=== PATIENT | male | born 1985 | race Two or more races ===

== ENCOUNTER 2019-11-20 23:34 | Inpatient (IN) | payer MEDICAID ==
[~2019-11-20] VITALS: Ht 185.4 cm; Wt 89.0 kg
[2019-11-20 23:39] VITALS: BP 156/100
[2019-11-21] VITALS (7 sets, daily range): BP systolic 128–149; BP diastolic 78–102
[2019-11-21] MEDS ORDERED: Acetaminophen 500mg (ES) tab ORAL ONE
[2019-11-21] MEDS ORDERED: Albuterol ud Inhalation HHN ONE
--- NOTE | 2019-11-21 00:01 | Emergency Room Report ---
History of Present Illness General Chief Complaint: Upper Respiratory Illness Source: Patient Present Illness HPI This is a 34-year-old male with a recent complicated medical history. He was admitted to [facility] for 3 weeks secondary to E. coli septicemia and renal failure. He said he had bloody diarrhea and was told that he was positive for E. coli. He went into renal failure and fluid overloaded. He had to had hemodialysis and also blood transfusion. He was just discharged about a week ago. He presented today with fever and shortness of breath. He said he was tested for COVID on the last admission it was negative. Fever started yesterday. He said he very short of breath starting tonight. His father called 911. Patient said his symptoms worse with exertion. Better with rest. He still has edema to lower extremity but has not gotten worse. No nausea no vomiting. He does have a nonproductive cough. Allergies: Coded Allergies: No Known Allergies (Unverified , 11/20/19) COVID-19 Screening Contact w/high risk pt: No Recent Travel to affected area: No Experienced COVID-19 symptoms?: Yes COVID-19 symptoms experienced: Fever (T>100.4F or >38C) COVID-19 Testing performed MANAGER ZONE: No Patient History Past Medical History: see triage record, old chart reviewed Past Surgical History: other Pertinent Family History: none Social History: Denies: smoking Immunizations: other Reviewed Nursing Documentation: PMH: Agreed; PSxH: Agreed Nursing Documentation-PMH Past Medical History: No History, Except For Hx Cardiac Problems: No - HGB Review of Systems Constitutional: Reports: fever Eye: Denies: eye pain, blurred vision ENT: Denies: ear pain, nose congestion, throat swelling Respiratory: Reports: cough, shortness of breath, PULIDO Cardiovascular: Denies: chest pain, palpitations Gastrointestinal: Denies: abdominal pain, diarrhea, nausea, vomiting Musculoskeletal: Denies: back pain, joint pain Skin: Denies: rash Neurological: Denies: headache, numbness Endocrine: Denies: increased thirst, increased urine Hematologic/Lymphatic: Denies: easy bruising All Other Systems: negative except mentioned in HPI Physical Exam Vital Signs Date Time Temp Pulse Resp B/P (MAP) Pulse Ox O2 Delivery O2 Flow Rate FiO2 11/20/19 23:29 99.7 108 22 156/100 (118) 92 Room Air Vitals with fever and hypoxia Sp02 EP Interpretation: reviewed, abnormal General Appearance: alert, moderate distress, Chronically Ill Head: normocephalic, atraumatic Eyes: bilateral eye PERRL, bilateral eye EOMI ENT: hearing grossly normal, normal pharynx Neck: full range of motion, supple, no meningismus Respiratory: chest non-tender, lungs clear, normal breath sounds Cardiovascular #1: regular rate, rhythm, no murmur Gastrointestinal: normal bowel sounds, non tender, no mass, no organomegaly, no bruit, non-distended Musculoskeletal: back normal, normal range of motion, gait/station normal, swelling - 2+ edema Psychiatric: mood/affect normal Medical Decision Making Diagnostic Impression: Primary Impression: Suspected 2019 novel coronavirus infection Additional Impressions: HCAP (healthcare-associated pneumonia) Anemia Qualified Codes: D64.9 - Anemia, unspecified CHF exacerbation Qualified Codes: I50.9 - Heart failure, unspecified ER Course Patient presents with respiratory distress probably secondary to cold with pneumonia. He does have a risk factor because he has been hospitalized for the last 3 weeks. Antibiotic started to cover for healthcare pneumonia. COVID swab sent. I also gave him Lovenox also. Blood transfusion ordered. Patient will be admitted for further work-up. I discussed the case with Dr. Dominguez for admission. This patient was evaluated in the context of the global COVID-19 pandemic, which necessitated consideration that the patient might be at risk for infection with the [id number] virus that causes COVID-19. Institutional protocols and algorithms that pertain to the evaluation of patients at risk for COVID-19 and the state of rapid change based on information released by multiple regulatory bodies including the CDC and federal and state organizations. These policies and algorithms were followed during the patient' s care in the ED. EKG Diagnostic Results Rate: normal Rhythm: NSR ST Segments: no acute changes Rhythm Strip Diag. Results EP Interpretation: yes Rate: 100 Rhythm: NSR, no PVC's, no ectopy Chest X-Ray Diagnostic Results Chest X-Ray Diagnostic Results : Chest X-Ray Ordered: Yes # of Views/Limited/Complete: 1 View Indication: Shortness of Breath EP Interpretation: Yes Interpretation: no effusion, no pneumothorax, other - Multilobar infiltrates Impression: Other - Infiltrates Electronically Signed by: Reynold Pool MD Last Vital Signs Date Time Temp Pulse Resp B/P (MAP) Pulse Ox O2 Delivery O2 Flow Rate FiO2 11/20/19 23:29 99.7 108 22 156/100 (118) 92 Room Air Status: improved Disposition: ADMITTED INPATIENT Condition: Serious Referrals: NOT CHOSEN IPA/,REFERRING (PCP) Reynold Pool MD Nov 21, 2019 00:01
[2019-11-21 00:08] LABS: HEMATOCRIT 18.5 % (42.0-52.0); MEAN CORPUSCULAR VOLUME 85 FL (80-99); PLATELET COUNT 222 K/UL (150-450); RED BLOOD COUNT 2.19 M/UL (4.70-6.10); RED CELL DISTRIBUTION WIDTH 16.8 % (11.6-14.8); WHITE BLOOD COUNT 8.2 K/UL (4.8-10.8)
[2019-11-21 00:11] LABS: HEMOGLOBIN 6.6 G/DL (14.2-18.0)
[2019-11-21] MEDS ORDERED: Enoxaparin 100mg Inj SUBQ ONE (00:15)
[2019-11-21] MEDS ORDERED: Cefepime HCl 1 GM in D5W 55 ML IVPB ONE (00:15)
[2019-11-21 00:25] LABS: ANION GAP 12 mmol/L (5-15); BLOOD UREA NITROGEN 20 mg/dL (7-18); CALCIUM 6.7 MG/DL (8.5-10.1); CARBON DIOXIDE 21 MMOL/L (21-32); CHLORIDE 108 MMOL/L (98-107); CREATININE 1.4 MG/DL (0.55-1.30); POTASSIUM 3.6 MMOL/L (3.5-5.1); SODIUM 141 MMOL/L (136-145)
[2019-11-21 00:36] LABS: ALANINE AMINOTRANSFERASE 17 U/L (12-78); ALBUMIN 2.2 G/DL (3.4-5.0); ALBUMIN/GLOBULIN RATIO 0.3 (1.0-2.7); ALKALINE PHOSPHATASE 84 U/L (46-116); ASPARTATE AMINO TRANSFERASE 34 U/L (15-37); BILIRUBIN,TOTAL 1.2 MG/DL (0.2-1.0); CREATINE KINASE 43 U/L (26-308)
[2019-11-21 01:06] LABS: BILIRUBIN,DIRECT 0.4 MG/DL (0.0-0.3); CKMB 0.7 NG/ML (0.0-3.6); FERRITIN 1001 NG/ML (8-388)
[2019-11-21 01:37] LABS: APPEARANCE,URINE CLEAR; BILIRUBIN, URINE NEGATIVE (NEGATIVE); COLOR,URINE PALE YELLOW; GLUCOSE, URINE (UA) NEGATIVE (NEGATIVE); KETONES,URINE NEGATIVE (NEGATIVE); LEUKOCYTE ESTERASE ,URINE NEGATIVE (NEGATIVE); NITRITE,URINE NEGATIVE (NEGATIVE); PH,URINE 6 (4.5-8.0); PROTEIN,URINE 4+ (NEGATIVE); UROBILINOGEN,URINE NORMAL MG/DL (0.0-1.0)
[2019-11-21] MEDS ORDERED: Ketorolac 30mg Inj ONE (06:58)
[2019-11-21] MEDS ORDERED: Morphine Sulfate 4mg/ml Inj (IV USE ONLY) IVP ONE (07:00)
--- NOTE | 2019-11-21 08:15 | Diagnostic Imaging Report ---
Indication: Shortness of breath Technique: One view of the chest Comparison: none Findings: The heart is borderline enlarged. Bilateral diffuse and extensive infiltrates versus edema are seen throughout both lungs. Small bilateral pleural effusions are present. Impression: Bilateral parenchymal infiltrates, suspect pneumonia, pulmonary edema also possible Small bilateral pleural effusions Borderline cardiomegaly
[2019-11-21 11:28] LABS: HEMATOCRIT 22.3 % (42.0-52.0); HEMOGLOBIN 7.6 G/DL (14.2-18.0); MEAN CORPUSCULAR VOLUME 86 FL (80-99); PLATELET COUNT 213 K/UL (150-450); RED BLOOD COUNT 2.61 M/UL (4.70-6.10); RED CELL DISTRIBUTION WIDTH 16.2 % (11.6-14.8); WHITE BLOOD COUNT 7.2 K/UL (4.8-10.8)
[2019-11-21 11:32] LABS: ANION GAP 9 mmol/L (5-15); BLOOD UREA NITROGEN 18 mg/dL (7-18); CARBON DIOXIDE 23 MMOL/L (21-32); CHLORIDE 109 MMOL/L (98-107); CREATININE 1.4 MG/DL (0.55-1.30); POTASSIUM 3.6 MMOL/L (3.5-5.1); SODIUM 141 MMOL/L (136-145)
[2019-11-21] MEDS ORDERED: HYDROcodone/Acetamin 5/325 tab ORAL PRN (12:00)
[2019-11-21] MEDS ORDERED: BIKTARVY 50-201 EACH PO (13:12)
--- NOTE | 2019-11-21 13:34 | Consultation ---
History of Present Illness General Chief Complaint: Upper Respiratory Illness Reason for Consultation: VERNA - recent ATN Present Illness HPI This is 34 year old male with hx of HIV (latest CD4 unknown but RNA undetectable per pt), and recent prolonged hospitalization at [facility] with E. coli enteritis, presenting with ~2 days of fever, SOB. During prior hospital stay, he lost a lot of blood and was discharged after ~3 weeks, on iron , with latest Hgb at 7 range. Denies any more bleeding since then. He was on temporary HD for 6-7 sessions at the time, but got better in the end. In terms of any COVID exposure, he was at [facility] a few days ago, but has been otherwise staying home. Due to SOB, cough, fever, his parents called 911 and he was taken here. Currently, his symptoms are much improved after some lasix and 2 units of blood. Allergies: Coded Allergies: No Known Allergies (Unverified , 11/20/19) Medication History Scheduled Bictegrav/Emtricit/Tenofov Ala (Biktarvy 50-200-25 mg Tablet), 1 EACH PO DAILY, (Reported) Patient History Healthcare decision maker Resuscitation status Advanced Directive on File Review of Systems All Other Systems: negative except mentioned in HPI Physical Exam General Appearance: WD/WN, no apparent distress Lines, tubes and drains: peripheral HEENT: normocephalic, atraumatic Neck: non-tender, normal alignment Respiratory/Chest: chest wall non-tender, rhonchi - bilaterally Cardiovascular/Chest: normal peripheral pulses, normal rate, regular rhythm Abdomen: normal bowel sounds, non tender, soft Extremities: normal range of motion, non-tender, normal inspection, no calf tenderness Neurologic: alert, oriented x 3, responsive Last 24 Hour Vital Signs Date Time Temp Pulse Resp B/P (MAP) Pulse Ox O2 Delivery O2 Flow Rate FiO2 11/21/19 11:43 Nasal Cannula 2.0 11/21/19 11:00 98.2 76 15 138/87 99 Room Air 2.0 11/21/19 09:30 97.5 73 19 145/91 98 Room Air 11/21/19 08:00 98.5 75 20 11/21/19 07:31 97.5 11/21/19 06:35 98.8 86 19 11/21/19 06:30 98.3 83 19 11/21/19 06:25 98.8 84 22 11/21/19 06:20 98.2 84 27 11/21/19 05:19 98.8 85 26 136/86 98 Nasal Cannula 2.0 32 11/21/19 03:55 98.7 89 24 11/21/19 03:50 98.7 96 26 11/21/19 03:45 98.8 95 24 11/21/19 03:40 98.8 98 22 128/82 98 Nasal Cannula 2.0 32 11/21/19 03:40 98.8 98 22 11/21/19 01:28 99.0 111 27 129/78 97 Nasal Cannula 2.0 11/21/19 00:45 99.0 11/21/19 00:07 86 27 100 Nasal Cannula 3.0 32 81 26 100 11/20/19 23:39 99.7 108 22 156/100 95 Nasal Cannula 11/20/19 23:39 108 22 Nasal Cannula 2.0 11/20/19 23:29 99.7 108 22 156/100 (118) 92 Room Air Intake and Output 11/20/19 11/21/19 19:00 07:00 Intake Total 250 ml Output Total 1500 ml Balance -1250 ml Intake Blood Product 250 ml Output Urine Total 1500 ml # Voids 4 Laboratory Tests Test 11/20/19 23:45 11/21/19 11:10 White Blood Count 8.2 K/UL (4.8-10.8) 7.2 K/UL (4.8-10.8) Red Blood Count 2.19 M/UL (4.70-6.10) L 2.61 M/UL (4.70-6.10) L Hemoglobin 6.6 G/DL (14.2-18.0) *L 7.6 G/DL (14.2-18.0) L Hematocrit 18.5 % (42.0-52.0) L 22.3 % (42.0-52.0) L Mean Corpuscular Volume 85 FL (80-99) 86 FL (80-99) Mean Corpuscular Hemoglobin 30.4 PG (27.0-31.0) 29.2 PG (27.0-31.0) Mean Corpuscular Hemoglobin Concent 35.8 G/DL (32.0-36.0) 34.1 G/DL (32.0-36.0) Red Cell Distribution Width 16.8 % (11.6-14.8) H 16.2 % (11.6-14.8) H Platelet Count 222 K/UL (150-450) 213 K/UL (150-450) Mean Platelet Volume 4.7 FL (6.5-10.1) L 5.2 FL (6.5-10.1) L Neutrophils (%) (Auto) % (45.0-75.0) % (45.0-75.0) Lymphocytes (%) (Auto) % (20.0-45.0) % (20.0-45.0) Monocytes (%) (Auto) % (1.0-10.0) % (1.0-10.0) Eosinophils (%) (Auto) % (0.0-3.0) % (0.0-3.0) Basophils (%) (Auto) % (0.0-2.0) % (0.0-2.0) D-Dimer 4.26 mg/L FEU (0.00-0.49) H Urine Color Pale yellow Urine Appearance Clear Urine pH 6 (4.5-8.0) Urine Specific [place] 1.010 (1.005-1.035) Urine Protein 4+ (NEGATIVE) H Urine Glucose (UA) Negative (NEGATIVE) Urine Ketones Negative (NEGATIVE) Urine Blood 4+ (NEGATIVE) H Urine Nitrite Negative (NEGATIVE) Urine Bilirubin Negative (NEGATIVE) Urine Urobilinogen Normal MG/DL (0.0-1.0) Urine Leukocyte Esterase Negative (NEGATIVE) Urine RBC Tntc /HPF (0 - 0) H Urine WBC 0-2 /HPF (0 - 0) Urine Squamous Epithelial Cells Few /LPF (NONE/OCC) Urine Bacteria Few /HPF (NONE) Sodium Level 141 MMOL/L (136-145) 141 MMOL/L (136-145) Potassium Level 3.6 MMOL/L (3.5-5.1) 3.6 MMOL/L (3.5-5.1) Chloride Level 108 MMOL/L (98-107) H 109 MMOL/L (98-107) H Carbon Dioxide Level 21 MMOL/L (21-32) 23 MMOL/L (21-32) Anion Gap 12 mmol/L (5-15) 9 mmol/L (5-15) Blood Urea Nitrogen 20 mg/dL (7-18) H 18 mg/dL (7-18) Creatinine 1.4 MG/DL (0.55-1.30) H 1.4 MG/DL (0.55-1.30) H Estimat Glomerular Filtration Rate 57.3 mL/min (>60) 57.3 mL/min (>60) Glucose Level 99 MG/DL (74-106) 84 MG/DL (74-106) Lactic Acid Level 1.10 mmol/L (0.4-2.0) Calcium Level 6.7 MG/DL (8.5-10.1) L 7.0 MG/DL (8.5-10.1) L Ferritin 1001 NG/ML (8-388) H Total Bilirubin 1.2 MG/DL (0.2-1.0) H Direct Bilirubin 0.4 MG/DL (0.0-0.3) H Aspartate Amino Transf (AST/SGOT) 34 U/L (15-37) Alanine Aminotransferase (ALT/SGPT) 17 U/L (12-78) Alkaline Phosphatase 84 U/L (46-116) Total Creatine Kinase 43 U/L (26-308) Creatine Kinase MB 0.7 NG/ML (0.0-3.6) Creatine Kinase MB Relative Index 1.6 Troponin I 0.011 ng/mL (0.000-0.056) C-Reactive Protein, Quantitative 4.3 mg/dL (0.00-0.90) H Pro-B-Type Natriuretic Peptide 6839 pg/mL (0-125) H Total Protein 9.0 G/DL (6.4-8.2) H Albumin 2.2 G/DL (3.4-5.0) L Globulin 6.8 g/dL Albumin/Globulin Ratio 0.3 (1.0-2.7) L Differential Total Cells Counted 100 Neutrophils % (Manual) 49 % (45-75) Lymphocytes % (Manual) 44 % (20-45) Monocytes % (Manual) 7 % (1-10) Eosinophils % (Manual) 0 % (0-3) Basophils % (Manual) 0 % (0-2) Band Neutrophils 0 % (0-8) Platelet Estimate Adequate Platelet Morphology Normal Anisocytosis 1+ Microbiology Date/Time Source Procedure Growth Status 11/20/19 23:45 Nasal Nares - Final Complete 11/20/19 23:45 Nasal Nares - Final Complete Height (Feet): 6 Height (Inches): 1.00 Weight (Pounds): 189 Medications Current Medications Medications (Trade) Dose Ordered Sig/Tiara Route PRN Reason Start Time Stop Time Status Last Admin Dose Admin Acetaminophen (Tylenol) 650 mg Q4H PRN ORAL Temp >100.5 11/21/19 12:00 12/21/19 11:59 Acetaminophen/ Hydrocodone Bitart ([place] 5/325) 1 tab Q4H PRN ORAL Severe Pain (Pain Scale 7-10) 11/21/19 12:00 11/28/19 11:59 Ferrous Sulfate (Feosol) 325 mg THREE TIMES A DAY ORAL 11/21/19 13:00 02/19/20 12:59 11/21/19 13:16 Assessment/Plan Diagnosis [place] I: #recent ATN due to HUs? HD depenedent resolved - cr stablized #SOB r/o covid #recent ecoli enteritis #HIV #anemia - diuretics prn to maintain net neg volume balance - r/o covid - monitor bmp, mag and phos - avoid nephrotoxins - pulm eval - ID eval - on cefepime and levaqui - 2d echo - transfuse prbc - monitor hemoglobin Impression: Bilateral parenchymal infiltrates, suspect pneumonia, pulmonary edema also possible Small bilateral pleural effusions Borderline cardiomegaly -chest xray: Sandy Dominguez M.D. Nov 21, 2019 13:34
--- NOTE | 2019-11-21 15:00 | History and Physical ---
History of Present Illness General Date patient seen: Nov 21, 2019 Reason for Hospitalization: Upper Respiratory Illness Present Illness HPI 34 year old male with hx of HIV (latest CD4 unknown but RNA undetectable per pt) , and recent prolonged hospitalization at [facility] with E. coli enteritis , presenting with ~2 days of fever, SOB. During prior hospital stay, he lost a lot of blood and was discharged after ~3 weeks, on iron, with latest Hgb at 7 range. Denies any more bleeding since then. He was on temporary HD for 6-7 sessions at the time, but got better in the end. In terms of any COVID exposure , he was at [employer] a few days ago, but has been otherwise staying home. Due to SOB, cough, fever, his parents called 911 and he was taken here. Currently, his symptoms are much improved after some lasix and 2 units of blood. Allergies: Coded Allergies: No Known Allergies (Unverified , 11/20/19) COVID-19 Screening Contact w/high risk pt: No Recent Travel to affected area: No Experienced COVID-19 symptoms?: No COVID-19 symptoms experienced: Shortness of Breath Medication History Scheduled Bictegrav/Emtricit/Tenofov Ala (Biktarvy 50-200-25 mg Tablet), 1 EACH PO DAILY, (Reported) Patient History Healthcare decision maker Resuscitation status Advanced Directive on File Review of Systems Constitutional: Reports: fever; Denies: no symptoms, see HPI, chills, sweats, malaise, weakness, other Eye: Denies: no symptoms, see HPI, eye pain, blurred vision, tearing, double vision, nose pain, nose congestion, acuity changes, discharge, other ENT: Denies: no symptoms, see HPI, ear pain, ear discharge, nose pain, nose congestion, throat pain, throat swelling, mouth pain, hearing loss, nasal discharge, other Respiratory: Reports: cough, shortness of breath Cardiovascular: Denies: no symptoms, see HPI, chest pain, edema, palpitations, syncope, PND, other Gastrointestinal: Denies: no symptoms, see HPI, abdominal pain, constipation, diarrhea, nausea, vomiting, melena, hematemesis, other Genitourinary: Denies: no symptoms, see HPI, discharge, dysuria, frequency, hematuria, pain, retention, incontinence, urgency, vag bleed/dc, other Musculoskeletal: Denies: no symptoms, see HPI, back pain, gout, joint pain, joint swelling, muscle pain, muscle stiffness, other Skin: Denies: no symptoms, see HPI, rash, change in color, change in hair/nails , dryness, lesions, other Psychiatric: Denies: no symptoms, see HPI, prior hx, anxiety, depressed feelings, emotional problems, SI, HI, hallucinations, other Neurological: Denies: no symptoms, see HPI, headache, numbness, paresthesia, seizure, tingling, tremors, focal weakness, syncope, dizziness, other Endocrine: Denies: no symptoms, see HPI, excessive sweating, flushing, intolerance to temperature, increased thirst, increased urine, unexplained weight loss, other Hematologic/Lymphatic: Denies: no symptoms, see HPI, anemia, blood clots, easy bleeding, easy bruising, swollen glands, diathesis, other Physical Exam General Appearance: no apparent distress, alert HEENT: normocephalic, atraumatic, PERRL Neck: non-tender, supple Respiratory/Chest: lungs clear, normal breath sounds, no respiratory distress Cardiovascular/Chest: normal rate, regular rhythm Abdomen: non tender, soft Neurologic: alert, oriented x 3 Last 24 Hour Vital Signs Date Time Temp Pulse Resp B/P (MAP) Pulse Ox O2 Delivery O2 Flow Rate FiO2 11/21/19 12:06 88 11/21/19 12:00 100.0 87 20 149/100 (116) 99 11/21/19 11:43 Nasal Cannula 2.0 11/21/19 11:00 98.2 76 15 138/87 99 Room Air 2.0 11/21/19 09:30 97.5 73 19 145/91 98 Room Air 11/21/19 08:00 98.5 75 20 11/21/19 07:31 97.5 11/21/19 06:35 98.8 86 19 11/21/19 06:30 98.3 83 19 11/21/19 06:25 98.8 84 22 11/21/19 06:20 98.2 84 27 11/21/19 05:19 98.8 85 26 136/86 98 Nasal Cannula 2.0 32 11/21/19 03:55 98.7 89 24 11/21/19 03:50 98.7 96 26 11/21/19 03:45 98.8 95 24 11/21/19 03:40 98.8 98 22 128/82 98 Nasal Cannula 2.0 32 11/21/19 03:40 98.8 98 22 11/21/19 01:28 99.0 111 27 129/78 97 Nasal Cannula 2.0 11/21/19 00:45 99.0 11/21/19 00:07 86 27 100 Nasal Cannula 3.0 32 81 26 100 11/20/19 23:39 99.7 108 22 156/100 95 Nasal Cannula 11/20/19 23:39 108 22 Nasal Cannula 2.0 11/20/19 23:29 99.7 108 22 156/100 (118) 92 Room Air Intake and Output 11/20/19 11/21/19 19:00 07:00 Intake Total 250 ml Output Total 1500 ml Balance -1250 ml Intake Blood Product 250 ml Output Urine Total 1500 ml # Voids 4 Laboratory Tests Test 11/20/19 23:45 11/21/19 11:10 White Blood Count 8.2 K/UL (4.8-10.8) 7.2 K/UL (4.8-10.8) Red Blood Count 2.19 M/UL (4.70-6.10) L 2.61 M/UL (4.70-6.10) L Hemoglobin 6.6 G/DL (14.2-18.0) *L 7.6 G/DL (14.2-18.0) L Hematocrit 18.5 % (42.0-52.0) L 22.3 % (42.0-52.0) L Mean Corpuscular Volume 85 FL (80-99) 86 FL (80-99) Mean Corpuscular Hemoglobin 30.4 PG (27.0-31.0) 29.2 PG (27.0-31.0) Mean Corpuscular Hemoglobin Concent 35.8 G/DL (32.0-36.0) 34.1 G/DL (32.0-36.0) Red Cell Distribution Width 16.8 % (11.6-14.8) H 16.2 % (11.6-14.8) H Platelet Count 222 K/UL (150-450) 213 K/UL (150-450) Mean Platelet Volume 4.7 FL (6.5-10.1) L 5.2 FL (6.5-10.1) L Neutrophils (%) (Auto) % (45.0-75.0) % (45.0-75.0) Lymphocytes (%) (Auto) % (20.0-45.0) % (20.0-45.0) Monocytes (%) (Auto) % (1.0-10.0) % (1.0-10.0) Eosinophils (%) (Auto) % (0.0-3.0) % (0.0-3.0) Basophils (%) (Auto) % (0.0-2.0) % (0.0-2.0) D-Dimer 4.26 mg/L FEU (0.00-0.49) H Urine Color Pale yellow Urine Appearance Clear Urine pH 6 (4.5-8.0) Urine Specific [place] 1.010 (1.005-1.035) Urine Protein 4+ (NEGATIVE) H Urine Glucose (UA) Negative (NEGATIVE) Urine Ketones Negative (NEGATIVE) Urine Blood 4+ (NEGATIVE) H Urine Nitrite Negative (NEGATIVE) Urine Bilirubin Negative (NEGATIVE) Urine Urobilinogen Normal MG/DL (0.0-1.0) Urine Leukocyte Esterase Negative (NEGATIVE) Urine RBC Tntc /HPF (0 - 0) H Urine WBC 0-2 /HPF (0 - 0) Urine Squamous Epithelial Cells Few /LPF (NONE/OCC) Urine Bacteria Few /HPF (NONE) Sodium Level 141 MMOL/L (136-145) 141 MMOL/L (136-145) Potassium Level 3.6 MMOL/L (3.5-5.1) 3.6 MMOL/L (3.5-5.1) Chloride Level 108 MMOL/L (98-107) H 109 MMOL/L (98-107) H Carbon Dioxide Level 21 MMOL/L (21-32) 23 MMOL/L (21-32) Anion Gap 12 mmol/L (5-15) 9 mmol/L (5-15) Blood Urea Nitrogen 20 mg/dL (7-18) H 18 mg/dL (7-18) Creatinine 1.4 MG/DL (0.55-1.30) H 1.4 MG/DL (0.55-1.30) H Estimat Glomerular Filtration Rate 57.3 mL/min (>60) 57.3 mL/min (>60) Glucose Level 99 MG/DL (74-106) 84 MG/DL (74-106) Lactic Acid Level 1.10 mmol/L (0.4-2.0) Calcium Level 6.7 MG/DL (8.5-10.1) L 7.0 MG/DL (8.5-10.1) L Ferritin 1001 NG/ML (8-388) H Total Bilirubin 1.2 MG/DL (0.2-1.0) H Direct Bilirubin 0.4 MG/DL (0.0-0.3) H Aspartate Amino Transf (AST/SGOT) 34 U/L (15-37) Alanine Aminotransferase (ALT/SGPT) 17 U/L (12-78) Alkaline Phosphatase 84 U/L (46-116) Total Creatine Kinase 43 U/L (26-308) Creatine Kinase MB 0.7 NG/ML (0.0-3.6) Creatine Kinase MB Relative Index 1.6 Troponin I 0.011 ng/mL (0.000-0.056) C-Reactive Protein, Quantitative 4.3 mg/dL (0.00-0.90) H Pro-B-Type Natriuretic Peptide 6839 pg/mL (0-125) H Total Protein 9.0 G/DL (6.4-8.2) H Albumin 2.2 G/DL (3.4-5.0) L Globulin 6.8 g/dL Albumin/Globulin Ratio 0.3 (1.0-2.7) L Differential Total Cells Counted 100 Neutrophils % (Manual) 49 % (45-75) Lymphocytes % (Manual) 44 % (20-45) Monocytes % (Manual) 7 % (1-10) Eosinophils % (Manual) 0 % (0-3) Basophils % (Manual) 0 % (0-2) Band Neutrophils 0 % (0-8) Platelet Estimate Adequate Platelet Morphology Normal Anisocytosis 1+ Microbiology Date/Time Source Procedure Growth Status 11/21/19 12:15 Nasopharynx SARS-CoV-2 RdRp Gene Assay - Final Complete 11/20/19 23:45 Nasal Nares - Final Complete 11/20/19 23:45 Nasal Nares - Final Complete Height (Feet): 6 Height (Inches): 1.00 Weight (Pounds): 189 Medications Current Medications Medications (Trade) Dose Ordered Sig/Tiara Route PRN Reason Start Time Stop Time Status Last Admin Dose Admin Acetaminophen (Tylenol) 650 mg Q4H PRN ORAL Temp >100.5 11/21/19 12:00 12/21/19 11:59 Acetaminophen/ Hydrocodone Bitart ([place] 5/325) 1 tab Q4H PRN ORAL Severe Pain (Pain Scale 7-10) 11/21/19 12:00 11/28/19 11:59 Ferrous Sulfate (Feosol) 325 mg THREE TIMES A DAY ORAL 11/21/19 13:00 02/19/20 12:59 11/21/19 13:16 Furosemide (Lasix) 40 mg EVERY 12 HOURS IV 11/21/19 21:00 12/21/19 20:59 Assessment/Plan Problem List: (1) Anemia ICD Codes: D64.9 - Anemia, unspecified SNOMED: 126410239, [id number] Qualifiers: Qualified Codes: D64.9 - Anemia, unspecified (2) CHF exacerbation ICD Codes: I50.9 - Heart failure, unspecified SNOMED: 665393067, [id number] Qualifiers: Qualified Codes: I50.9 - Heart failure, unspecified Status: stable Assessment/Plan: Mr. Rollins is a 34 yo male with HIV, here with 2 days of cough, SOB, fever, and anemia. #Acute on chronic anemia -Has lost a lot of blood from recent E. coli enteritis. no more bleeding since. -s/p 2 u pRBC in the ED with good response. -check CBC daily. first one tmrw. -continue iron #SOB #Cough -check COVID -s/p abx in the ED. Does not appear to have PNA, will not continue abx. -s/p lasix in the ED. will not continue, since transfusions done and no hx of CHF. #HIV -continue home HIV med (Biktarvy) -f/u outpatient. Time spent on encounter: 76 mins, 37 mins spent on counseling and coordination of care, d/w RN, consultants. Extra 37 mins spent on reviewing EMR records, including physician documentation , labs, imaging, medications. Time of note doesn't reflect time of encounter. Kristopher Orta MD Nov 21, 2019 15:00
--- NOTE | 2019-11-21 19:45 | Consultation ---
DATE OF CONSULTATION: 11/21/2019 PULMONARY CONSULTATION CONSULTING PHYSICIAN: Lorenzo Zavala MD. HISTORY OF PRESENT ILLNESS: This is a 34-year-old male with history of recent admission to outside hospital with sepsis and acute renal failure. He was started on hemodialysis and also received transfusion. He was discharged recently. He now re-presents at this time to our hospital with complaints of shortness of breath. He also reports fever. His COVID-19 test was negative as an outpatient per his report. The patient reports fever and shortness of breath. PAST MEDICAL HISTORY: Discussed above. Notable for recent admission to [facility] with E. coli sepsis and renal failure. REVIEW OF SYSTEMS: Denies any headaches, hematemesis, melena, hematochezia, night sweats, or weight loss. PHYSICAL EXAMINATION: GENERAL: Reveals a 34-year-old male. VITAL SIGNS: Blood pressure 140/90, heart rate 74, he is afebrile, O2 saturation 98% on room air. HEENT: Unremarkable. CHEST: Decreased breath sounds bilaterally with normal heart sounds. ABDOMEN: Soft. EXTREMITIES: There is no edema. LABORATORY DATA: Lab testing shows hemoglobin 6.6, otherwise normal CBC. Creatinine 1.4. Troponin 0.1. C-reactive protein 4.3. Total bilirubin 1.2. Coags normal except for D-dimer of 4.26. Urinalysis shows few wbc. Microbiology pending. IMAGING STUDIES: The patient underwent chest x-ray, which has shown bilateral pulmonary infiltrates suspicious for pulmonary edema. Cannot exclude COVID-19. IMPRESSION: 1. Bilateral infiltrates, suspect pulmonary edema. 2. Rule out COVID-19. 3. Significant anemia. 4. Renal dysfunction. DISCUSSION: The patient needs diuresis. He needs an echo. Need to exclude COVID-19. His x-ray is very peculiar with sparing of the apices, otherwise almost like a batwing appearance to the fluffy interstitial infiltrates. We will follow carefully. Discussed with Cardiology and Nephrology. Lorenzo Zavala M.D. DR: SEAN JOB#: [id number] CC:
--- NOTE | 2019-11-21 20:02 | Infectious Diseases Prog Note ---
Assessment/Plan Assessment/Plan Full consult dictated: A) 1) ? pna, fevers, chf/edema, ? covid-19 virus infection, ? CAP, ? other viral pna - rapid PAUL test negative, PCR pending 2) recent hospitalization for e.coli enteritis 3) hiv - viral load - ND, ? cd4-count 4) hx ARF and HD P) 1) treat for CAP - ceftriaxone and doxycycline (arrhythmia risk with cardiomegaly and chf and avoid azithromycin) 2) f/u on covid pcr 3) f/u on chest x-ray, labs and cultures 4) thank you Subjective Allergies: Coded Allergies: No Known Allergies (Unverified , 11/20/19) Objective Vital Signs Last 24 Hour Vital Signs Date Time Temp Pulse Resp B/P (MAP) Pulse Ox O2 Delivery O2 Flow Rate FiO2 11/21/19 19:19 101.8 11/21/19 16:00 101.5 102 22 148/102 (117) 97 11/21/19 15:57 107 11/21/19 12:06 88 11/21/19 12:00 100.0 87 20 149/100 (116) 99 11/21/19 11:43 Nasal Cannula 2.0 11/21/19 11:00 98.2 76 15 138/87 99 Room Air 2.0 11/21/19 09:30 97.5 73 19 145/91 98 Room Air 11/21/19 08:00 98.5 75 20 11/21/19 07:31 97.5 11/21/19 06:35 98.8 86 19 11/21/19 06:30 98.3 83 19 11/21/19 06:25 98.8 84 22 11/21/19 06:20 98.2 84 27 11/21/19 05:19 98.8 85 26 136/86 98 Nasal Cannula 2.0 32 11/21/19 03:55 98.7 89 24 11/21/19 03:50 98.7 96 26 11/21/19 03:45 98.8 95 24 11/21/19 03:40 98.8 98 22 128/82 98 Nasal Cannula 2.0 32 11/21/19 03:40 98.8 98 22 11/21/19 01:28 99.0 111 27 129/78 97 Nasal Cannula 2.0 6/9/20 00:45 99.0 11/21/19 00:07 86 27 100 Nasal Cannula 3.0 32 81 26 100 11/20/19 23:39 99.7 108 22 156/100 95 Nasal Cannula 11/20/19 23:39 108 22 Nasal Cannula 2.0 11/20/19 23:29 99.7 108 22 156/100 (118) 92 Room Air Height (Feet): 6 Height (Inches): 1.00 Weight (Pounds): 189 Microbiology Date/Time Source Procedure Growth Status 11/21/19 12:15 Nasopharynx SARS-CoV-2 RdRp Gene Assay - Final Complete 11/20/19 23:45 Nasal Nares - Final Complete 11/20/19 23:45 Nasal Nares - Final Complete Laboratory Tests Test 11/20/19 23:45 11/21/19 11:10 White Blood Count 8.2 K/UL (4.8-10.8) 7.2 K/UL (4.8-10.8) Red Blood Count 2.19 M/UL (4.70-6.10) L 2.61 M/UL (4.70-6.10) L Hemoglobin 6.6 G/DL (14.2-18.0) *L 7.6 G/DL (14.2-18.0) L Hematocrit 18.5 % (42.0-52.0) L 22.3 % (42.0-52.0) L Mean Corpuscular Volume 85 FL (80-99) 86 FL (80-99) Mean Corpuscular Hemoglobin 30.4 PG (27.0-31.0) 29.2 PG (27.0-31.0) Mean Corpuscular Hemoglobin Concent 35.8 G/DL (32.0-36.0) 34.1 G/DL (32.0-36.0) Red Cell Distribution Width 16.8 % (11.6-14.8) H 16.2 % (11.6-14.8) H Platelet Count 222 K/UL (150-450) 213 K/UL (150-450) Mean Platelet Volume 4.7 FL (6.5-10.1) L 5.2 FL (6.5-10.1) L Neutrophils (%) (Auto) % (45.0-75.0) % (45.0-75.0) Lymphocytes (%) (Auto) % (20.0-45.0) % (20.0-45.0) Monocytes (%) (Auto) % (1.0-10.0) % (1.0-10.0) Eosinophils (%) (Auto) % (0.0-3.0) % (0.0-3.0) Basophils (%) (Auto) % (0.0-2.0) % (0.0-2.0) D-Dimer 4.26 mg/L FEU (0.00-0.49) H Urine Color Pale yellow Urine Appearance Clear Urine pH 6 (4.5-8.0) Urine Specific Call 1.010 (1.005-1.035) Urine Protein 4+ (NEGATIVE) H Urine Glucose (UA) Negative (NEGATIVE) Urine Ketones Negative (NEGATIVE) Urine Blood 4+ (NEGATIVE) H Urine Nitrite Negative (NEGATIVE) Urine Bilirubin Negative (NEGATIVE) Urine Urobilinogen Normal MG/DL (0.0-1.0) Urine Leukocyte Esterase Negative (NEGATIVE) Urine RBC Tntc /HPF (0 - 0) H Urine WBC 0-2 /HPF (0 - 0) Urine Squamous Epithelial Cells Few /LPF (NONE/OCC) Urine Bacteria Few /HPF (NONE) Sodium Level 141 MMOL/L (136-145) 141 MMOL/L (136-145) Potassium Level 3.6 MMOL/L (3.5-5.1) 3.6 MMOL/L (3.5-5.1) Chloride Level 108 MMOL/L (98-107) H 109 MMOL/L (98-107) H Carbon Dioxide Level 21 MMOL/L (21-32) 23 MMOL/L (21-32) Anion Gap 12 mmol/L (5-15) 9 mmol/L (5-15) Blood Urea Nitrogen 20 mg/dL (7-18) H 18 mg/dL (7-18) Creatinine 1.4 MG/DL (0.55-1.30) H 1.4 MG/DL (0.55-1.30) H Estimat Glomerular Filtration Rate 57.3 mL/min (>60) 57.3 mL/min (>60) Glucose Level 99 MG/DL (74-106) 84 MG/DL (74-106) Lactic Acid Level 1.10 mmol/L (0.4-2.0) Calcium Level 6.7 MG/DL (8.5-10.1) L 7.0 MG/DL (8.5-10.1) L Ferritin 1001 NG/ML (8-388) H Total Bilirubin 1.2 MG/DL (0.2-1.0) H Direct Bilirubin 0.4 MG/DL (0.0-0.3) H Aspartate Amino Transf (AST/SGOT) 34 U/L (15-37) Alanine Aminotransferase (ALT/SGPT) 17 U/L (12-78) Alkaline Phosphatase 84 U/L (46-116) Total Creatine Kinase 43 U/L (26-308) Creatine Kinase MB 0.7 NG/ML (0.0-3.6) Creatine Kinase MB Relative Index 1.6 Troponin I 0.011 ng/mL (0.000-0.056) C-Reactive Protein, Quantitative 4.3 mg/dL (0.00-0.90) H Pro-B-Type Natriuretic Peptide 6839 pg/mL (0-125) H Total Protein 9.0 G/DL (6.4-8.2) H Albumin 2.2 G/DL (3.4-5.0) L Globulin 6.8 g/dL Albumin/Globulin Ratio 0.3 (1.0-2.7) L Differential Total Cells Counted 100 Neutrophils % (Manual) 49 % (45-75) Lymphocytes % (Manual) 44 % (20-45) Monocytes % (Manual) 7 % (1-10) Eosinophils % (Manual) 0 % (0-3) Basophils % (Manual) 0 % (0-2) Band Neutrophils 0 % (0-8) Platelet Estimate Adequate Platelet Morphology Normal Anisocytosis 1+ Current Medications Medications (Trade) Dose Ordered Sig/Tiara Route PRN Reason Start Time Stop Time Status Last Admin Dose Admin Acetaminophen (Tylenol) 650 mg Q4H PRN ORAL Temp >100.5 11/21/19 12:00 12/21/19 11:59 11/21/19 18:49 Ferrous Sulfate (Feosol) 325 mg THREE TIMES A DAY ORAL 11/21/19 13:00 02/19/20 12:59 11/21/19 17:43 Morphine Sulfate (Morphine Sulfate) 2 mg Q4H PRN IVP Moderate Pain (Pain Scale 4-6) 11/21/19 19:30 11/28/19 19:29 Morphine Sulfate (Morphine Sulfate) 4 mg Q4H PRN IVP Severe Pain (Pain Scale 7-10) 11/21/19 19:30 11/28/19 19:29 Leeroy Orellana MD Nov 21, 2019 20:02
[2019-11-21] MEDS ORDERED: cefTRIAXone 1 GM in D5W 50 ML IVPB SCH (21:00)
[2019-11-21] MEDS: Doxycycline Monohydrate 100mg ORAL SCH (21:39)
--- NOTE | 2019-11-21 23:11 | Consultation ---
History of Present Illness General Date patient seen: Nov 21, 2019 Time patient seen: 23:07 Chief Complaint: Upper Respiratory Illness Reason for Consultation: VERNA - recent ATN Present Illness HPI 34 year old male with hx of HIV (latest CD4 unknown but RNA undetectable per pt) , and recent prolonged hospitalization at [facility] with E. coli enteritis , presenting with ~2 days of fever, SOB. During prior hospital stay, he lost a lot of blood and was discharged after ~3 weeks, on iron, with latest Hgb at 7 range. Denies any more bleeding since then. He was on temporary HD for 6-7 sessions at the time, but got better in the end. In terms of any COVID exposure , he was at [facility] a few days ago, but has been otherwise staying home. Due to SOB, cough, fever, his parents called 911 and he was taken here. Currently, his symptoms are much improved after some lasix and 2 units of blood. Allergies: Coded Allergies: No Known Allergies (Unverified , 11/20/19) Medication History Scheduled Bictegrav/Emtricit/Tenofov Ala (Biktarvy 50-200-25 mg Tablet), 1 EACH PO DAILY, (Reported) Patient History Healthcare decision maker Resuscitation status Advanced Directive on File Review of Systems Constitutional: Reports: no symptoms Eye: Reports: no symptoms ENT: Reports: no symptoms Respiratory: Reports: shortness of breath Cardiovascular: Reports: no symptoms Gastrointestinal: Reports: no symptoms Genitourinary: Reports: no symptoms Musculoskeletal: Reports: no symptoms Skin: Reports: no symptoms Psychiatric: Reports: no symptoms Neurological: Reports: no symptoms Endocrine: Reports: no symptoms Hematologic/Lymphatic: Reports: no symptoms Physical Exam General Appearance: no apparent distress, alert Lines, tubes and drains: peripheral HEENT: normocephalic, atraumatic Neck: non-tender, normal alignment, supple, normal inspection Respiratory/Chest: chest wall non-tender, lungs clear Cardiovascular/Chest: normal peripheral pulses, normal rate, regular rhythm Abdomen: normal bowel sounds, non tender, soft, no organomegaly, no mass Extremities: normal range of motion, non-tender, normal inspection Skin Exam: normal pigmentation, warm/dry 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, no motor/sensory deficits Last 24 Hour Vital Signs Date Time Temp Pulse Resp B/P (MAP) Pulse Ox O2 Delivery O2 Flow Rate FiO2 6/9/20 20:00 100.8 96 22 143/96 (112) 93 11/21/19 19:19 101.8 11/21/19 16:00 101.5 102 22 148/102 (117) 97 11/21/19 15:57 107 11/21/19 12:06 88 11/21/19 12:00 100.0 87 20 149/100 (116) 99 11/21/19 11:43 Nasal Cannula 2.0 11/21/19 11:00 98.2 76 15 138/87 99 Room Air 2.0 11/21/19 09:30 97.5 73 19 145/91 98 Room Air 11/21/19 08:00 98.5 75 20 11/21/19 07:31 97.5 11/21/19 06:35 98.8 86 19 11/21/19 06:30 98.3 83 19 11/21/19 06:25 98.8 84 22 11/21/19 06:20 98.2 84 27 11/21/19 05:19 98.8 85 26 136/86 98 Nasal Cannula 2.0 32 11/21/19 03:55 98.7 89 24 11/21/19 03:50 98.7 96 26 11/21/19 03:45 98.8 95 24 11/21/19 03:40 98.8 98 22 128/82 98 Nasal Cannula 2.0 32 11/21/19 03:40 98.8 98 22 11/21/19 01:28 99.0 111 27 129/78 97 Nasal Cannula 2.0 11/21/19 00:45 99.0 11/21/19 00:07 86 27 100 Nasal Cannula 3.0 32 81 26 100 11/20/19 23:39 99.7 108 22 156/100 95 Nasal Cannula 11/20/19 23:39 108 22 Nasal Cannula 2.0 11/20/19 23:29 99.7 108 22 156/100 (118) 92 Room Air Intake and Output 11/20/19 11/21/19 19:00 07:00 Intake Total 250 ml Output Total 1500 ml Balance -1250 ml Blood Product 250 ml Output Urine Total 1500 ml # Voids 4 Laboratory Tests Test 11/20/19 23:45 11/21/19 11:10 White Blood Count 8.2 K/UL (4.8-10.8) 7.2 K/UL (4.8-10.8) Red Blood Count 2.19 M/UL (4.70-6.10) L 2.61 M/UL (4.70-6.10) L Hemoglobin 6.6 G/DL (14.2-18.0) *L 7.6 G/DL (14.2-18.0) L Hematocrit 18.5 % (42.0-52.0) L 22.3 % (42.0-52.0) L Mean Corpuscular Volume 85 FL (80-99) 86 FL (80-99) Mean Corpuscular Hemoglobin 30.4 PG (27.0-31.0) 29.2 PG (27.0-31.0) Mean Corpuscular Hemoglobin Concent 35.8 G/DL (32.0-36.0) 34.1 G/DL (32.0-36.0) Red Cell Distribution Width 16.8 % (11.6-14.8) H 16.2 % (11.6-14.8) H Platelet Count 222 K/UL (150-450) 213 K/UL (150-450) Mean Platelet Volume 4.7 FL (6.5-10.1) L 5.2 FL (6.5-10.1) L Neutrophils (%) (Auto) % (45.0-75.0) % (45.0-75.0) Lymphocytes (%) (Auto) % (20.0-45.0) % (20.0-45.0) Monocytes (%) (Auto) % (1.0-10.0) % (1.0-10.0) Eosinophils (%) (Auto) % (0.0-3.0) % (0.0-3.0) Basophils (%) (Auto) % (0.0-2.0) % (0.0-2.0) D-Dimer 4.26 mg/L FEU (0.00-0.49) H Urine Color Pale yellow Urine Appearance Clear Urine pH 6 (4.5-8.0) Urine Specific [place] 1.010 (1.005-1.035) Urine Protein 4+ (NEGATIVE) H Urine Glucose (UA) Negative (NEGATIVE) Urine Ketones Negative (NEGATIVE) Urine Blood 4+ (NEGATIVE) H Urine Nitrite Negative (NEGATIVE) Urine Bilirubin Negative (NEGATIVE) Urine Urobilinogen Normal MG/DL (0.0-1.0) Urine Leukocyte Esterase Negative (NEGATIVE) Urine RBC Tntc /HPF (0 - 0) H Urine WBC 0-2 /HPF (0 - 0) Urine Squamous Epithelial Cells Few /LPF (NONE/OCC) Urine Bacteria Few /HPF (NONE) Sodium Level 141 MMOL/L (136-145) 141 MMOL/L (136-145) Potassium Level 3.6 MMOL/L (3.5-5.1) 3.6 MMOL/L (3.5-5.1) Chloride Level 108 MMOL/L (98-107) H 109 MMOL/L (98-107) H Carbon Dioxide Level 21 MMOL/L (21-32) 23 MMOL/L (21-32) Anion Gap 12 mmol/L (5-15) 9 mmol/L (5-15) Blood Urea Nitrogen 20 mg/dL (7-18) H 18 mg/dL (7-18) Creatinine 1.4 MG/DL (0.55-1.30) H 1.4 MG/DL (0.55-1.30) H Estimat Glomerular Filtration Rate 57.3 mL/min (>60) 57.3 mL/min (>60) Glucose Level 99 MG/DL (74-106) 84 MG/DL (74-106) Lactic Acid Level 1.10 mmol/L (0.4-2.0) Calcium Level 6.7 MG/DL (8.5-10.1) L 7.0 MG/DL (8.5-10.1) L Ferritin 1001 NG/ML (8-388) H Total Bilirubin 1.2 MG/DL (0.2-1.0) H Direct Bilirubin 0.4 MG/DL (0.0-0.3) H Aspartate Amino Transf (AST/SGOT) 34 U/L (15-37) Alanine Aminotransferase (ALT/SGPT) 17 U/L (12-78) Alkaline Phosphatase 84 U/L (46-116) Total Creatine Kinase 43 U/L (26-308) Creatine Kinase MB 0.7 NG/ML (0.0-3.6) Creatine Kinase MB Relative Index 1.6 Troponin I 0.011 ng/mL (0.000-0.056) C-Reactive Protein, Quantitative 4.3 mg/dL (0.00-0.90) H Pro-B-Type Natriuretic Peptide 6839 pg/mL (0-125) H Total Protein 9.0 G/DL (6.4-8.2) H Albumin 2.2 G/DL (3.4-5.0) L Globulin 6.8 g/dL Albumin/Globulin Ratio 0.3 (1.0-2.7) L Differential Total Cells Counted 100 Neutrophils % (Manual) 49 % (45-75) Lymphocytes % (Manual) 44 % (20-45) Monocytes % (Manual) 7 % (1-10) Eosinophils % (Manual) 0 % (0-3) Basophils % (Manual) 0 % (0-2) Band Neutrophils 0 % (0-8) Platelet Estimate Adequate Platelet Morphology Normal Anisocytosis 1+ Lactate Dehydrogenase 430 U/L (81-234) H Microbiology Date/Time Source Procedure Growth Status 11/21/19 12:15 Nasopharynx SARS-CoV-2 RdRp Gene Assay - Final Complete 11/20/19 23:45 Nasal Nares - Final Complete 11/20/19 23:45 Nasal Nares - Final Complete Height (Feet): 6 Height (Inches): 1.00 Weight (Pounds): 189 Medications Current Medications Medications (Trade) Dose Ordered Sig/Tiara Route PRN Reason Start Time Stop Time Status Last Admin Dose Admin Acetaminophen (Tylenol) 650 mg Q4H PRN ORAL Temp >100.5 11/21/19 12:00 12/21/19 11:59 11/21/19 18:49 Ceftriaxone Sodium 1 gm/ Dextrose 50 ml @ 100 mls/hr Q24H IVPB 11/21/19 21:00 11/28/19 20:59 11/21/19 21:00 Doxycycline Monohydrate (Doxycycline Monohydrate) 100 mg EVERY 12 HOURS ORAL 11/21/19 22:00 11/28/19 21:59 11/21/19 21:39 Ferrous Sulfate (Feosol) 325 mg THREE TIMES A DAY ORAL 11/21/19 13:00 02/19/20 12:59 11/21/19 17:43 Morphine Sulfate (Morphine Sulfate) 2 mg Q4H PRN IVP Moderate Pain (Pain Scale 4-6) 11/21/19 19:30 11/28/19 19:29 Morphine Sulfate (Morphine Sulfate) 4 mg Q4H PRN IVP Severe Pain (Pain Scale 7-10) 11/21/19 19:30 11/28/19 19:29 Assessment/Plan Status: stable Assessment/Plan: Assessment/Plan Problem List: (1) Anemia (2) CHF exacerbation (3) HIV (4) SOB -s/p PRBC transfusion with improvement in symptoms -currently stable on room air, hold diuresis -Echocardiogram pending -Serial CXR -Empiric ABx for PNA - monitor QTC on azithromycin, continue telemetry Dario Coto MD Nov 21, 2019 23:11
[2019-11-22] VITALS: BP 143/93
[2019-11-22] MEDS: Morphine Sulfate 4mg/ml Inj (IV USE ONLY) IVP PRN ×2 (01:43→21:36)
[2019-11-22 04:00] VITALS: BP 142/95
--- NOTE | 2019-11-22 05:00 | Consultation ---
DATE OF CONSULTATION: 11/21/2019 INFECTIOUS DISEASES CONSULTATION CONSULTING PHYSICIAN: Leeroy Orellana MD. ATTENDING PHYSICIAN: Sandy Dominguez MD. REFERRING PHYSICIAN: Sandy Dominguez MD. REASON FOR CONSULTATION: Shortness of breath, pneumonia, possible COVID-19 virus infection, and fevers. CHIEF COMPLAINT: The patient's chief complaint coming in to the hospital is possible COVID-19 virus infection and pneumonia. HISTORY OF PRESENT ILLNESS: This is a 34-year-old male who comes in to [facility] with cough and congestion. He has possible pneumonia versus CHF on chest x-ray. He was recently hospitalized in [facility] for E. coli enteritis requiring hemodialysis and acute renal failure. He also had blood loss. The patient was discharged off hemodialysis. The patient had possible COVID exposure at [facility]; however, he mostly stayed at home. The patient presents to [facility] with cough; congestion; shortness of breath, mostly on exertion; and fevers. Infectious Diseases consultation was requested. He got cefepime and Levaquin in the ER. Chest x-ray shows bilateral infiltrates versus edema. The patient was given Lasix with improvement in symptoms. He still has fevers, however. The patient was placed on Rocephin and doxycycline. REVIEW OF SYSTEMS: CONSTITUTIONAL: As discussed, fevers. He has some shortness of breath and cough. CARDIAC: No chest pain. PULMONARY: Shortness of breath and cough. GENITOURINARY: No dysuria or frequency. SKIN: No rash. EXTREMITIES: No pain. GASTROINTESTINAL: No nausea, vomiting, or diarrhea currently. No abdominal pain. PAST MEDICAL HISTORY: The patient's past medical history includes history of the following. The patient has a past medical history of HIV with undetectable viral load and CD4 unknown. It is unclear what his T-cell count is. He is on Biktarvy for that. As discussed, also, he has history of E. coli enteritis recently and renal failure requiring hemodialysis; however, he is off hemodialysis currently. ALLERGIES: No known drug allergies. SOCIAL HISTORY: Negative for smoking, alcohol, or drug abuse. FAMILY HISTORY: Noncontributory. MEDICATIONS: Upon reviewing the MAR, he is on the following medications: He is on morphine, ferrous sulfate, acetaminophen, Rocephin, and doxycycline. In the outpatient setting, he is on Biktarvy for his HIV treatment. PHYSICAL EXAMINATION: VITAL SIGNS: He has had persistent temperatures. Temperature is 101.8, pulse rate is 102, respiratory rate 22, blood pressure 148/102, saturating 97%. GENERAL: The patient is alert, responsive, oriented, in no acute distress. HEAD AND NECK: Oral exam, no thrush. Eye exam, no icterus. Normocephalic. Neck is supple. HEART: No gallop or murmur. ABDOMEN: Soft. Positive bowel sounds. Nontender. LUNGS: Few bilateral rhonchi versus crackles. SKIN: No rash. MUSCULOSKELETAL: No effusion. LINE SITES: Without phlebitis. PERIPHERAL VASCULAR: No cyanosis. GENITOURINARY: No Morgan. NEUROLOGIC: Intact. Alert. He is oriented x3. Nonfocal. LABORATORY DATA: Creatinine 1.4. LFTs were noted and normal. Lactic acid is 1.1. White count today is 7.2, hemoglobin is 7.6. Hemoglobin yesterday was 6.6. Urinalysis had too many to count rbc's with only 0-2 white cells. Imaging studies, chest x-ray with bilateral parenchymal infiltrates, pneumonia versus edema and with effusions. COVID rapid test was negative, which is nucleic acid amplification test and influenza screen is negative. ASSESSMENT AND PLAN: 1. The patient has pneumonia versus edema or CHF on chest x-ray. He has been given Lasix with improvement; however, he has persistent fevers. The patient had recent hospitalization for E. coli enteritis. At this time, I will consider COVID-19 virus infection with pneumonia; however, rapid testing is negative, but await PCR testing. Continue COVID-19 virus isolation for now. Also, the patient is certainly at risk for viral pneumonia with secondary bacterial pneumonia versus community-acquired pneumonia. At this time, we will continue Rocephin and doxycycline because of the persistent fevers and again possible bacterial pneumonia. Continue Rocephin and doxycycline. Check chest x-ray, Legionella and Mycoplasma labs. Await PCR testing for COVID-19 virus infection. Continue isolation. Monitor fevers at this time. The patient also could have CHF and edema. Lasix as needed or diuresis as needed. I believe Pulmonary is also on the case. 2. HIV. We will check CD4 and viral load. We will try to get Biktarvy from the patient's home just to place him on treatment here. Discussing with pharmacy, we do not have Biktarvy available. With regard to HIV, he has nondetectable viral load, but unclear T-cell count. We will also get an LDH on him too. 3. History of acute renal failure, on hemodialysis. 4. History of E. coli enteritis and sepsis. 5. Continue treatment per primary consultants. 6. No known allergies. 7. Social history negative. 8. Family history noncontributory. 9. MAR was noted. 10. Case was discussed with RN. Leeroy Orellana M.D. DR: Rancho JOB#: [id number] CC:
[2019-11-22 07:21] LABS: HEMATOCRIT 19.9 % (42.0-52.0); HEMOGLOBIN 7.1 G/DL (14.2-18.0); MEAN CORPUSCULAR VOLUME 84 FL (80-99); PLATELET COUNT 201 K/UL (150-450); RED BLOOD COUNT 2.38 M/UL (4.70-6.10); RED CELL DISTRIBUTION WIDTH 15.8 % (11.6-14.8)
[2019-11-22 07:38] LABS: ANION GAP 10 mmol/L (5-15); BLOOD UREA NITROGEN 19 mg/dL (7-18); CALCIUM 7.1 MG/DL (8.5-10.1); CARBON DIOXIDE 21 MMOL/L (21-32); CHLORIDE 103 MMOL/L (98-107); CREATININE 1.3 MG/DL (0.55-1.30); POTASSIUM 3.2 MMOL/L (3.5-5.1); SODIUM 134 MMOL/L (136-145)
[2019-11-22 07:47] LABS: PHOSPHORUS 3.8 MG/DL (2.5-4.9)
[2019-11-22 08:00] VITALS: BP 144/99
--- NOTE | 2019-11-22 08:27 | Nephrology Progress Note ---
Assessment/Plan Plan #recent ATN due to HUs? HD depenedent resolved - cr stablized #SOB r/o covid #recent ecoli enteritis #HIV #anemia - lasix 40 IV BID - repelete mag and K - monitor cr - echo with elevated PA pessures - r/o covid - monitor bmp, mag and phos - avoid nephrotoxins - pulm eval - ID eval - on cefepime and levaqui - 2d echo reviewed - transfuse prbc prn - monitor hemoglobin Subjective ROS Limited/Unobtainable: No Constitutional: Denies: no symptoms, chills, diaphoresis, fever, malaise, weakness, other HEENT: Denies: no symptoms, eye pain, blurred vision, tearing, double vision, ear pain, ear discharge, nose pain, nose congestion, throat pain, throat swelling, mouth pain, mouth swelling, other Genitourinary: Denies: no symptoms, burning, discharge, frequency, flank pain, hematuria, incontinence, pain, urgency, other Neurologic/Psychiatric: Denies: no symptoms, anxiety, depressed, emotional problems, headache, numbness, paresthesia, pre-existing deficit, seizure, tingling, tremors, weakness, other Subjective Cr stable K low repleted echo with elevated PA pressures Objective Objective Last 24 Hour Vital Signs Date Time Temp Pulse Resp B/P (MAP) Pulse Ox O2 Delivery O2 Flow Rate FiO2 11/22/19 04:00 97.9 98 22 142/95 (111) 92 11/22/19 04:00 94 11/22/19 01:37 101.5 11/22/19 00:00 102.0 90 22 143/93 (110) 97 11/22/19 00:00 84 11/21/19 21:00 Nasal Cannula 3.0 11/21/19 20:00 120 11/21/19 20:00 100.8 96 22 143/96 (112) 93 11/21/19 16:00 101.5 102 22 148/102 (117) 97 11/21/19 15:57 107 11/21/19 12:06 88 11/21/19 12:00 100.0 87 20 149/100 (116) 99 11/21/19 11:43 Nasal Cannula 2.0 11/21/19 11:00 98.2 76 15 138/87 99 Room Air 2.0 11/21/19 09:30 97.5 73 19 145/91 98 Room Air Intake and Output 11/21/19 11/22/19 19:00 07:00 Intake Total 970 ml Output Total 500 ml Balance 470 ml Intake Oral 720 ml Blood Product 250 ml Output Urine Total 500 ml # Voids 2 Laboratory Tests 11/21/19 11:10: White Blood Count 7.2, Red Blood Count 2.61L, Hemoglobin 7.6L, Hematocrit 22.3L , Mean Corpuscular Volume 86, Mean Corpuscular Hemoglobin 29.2, Mean Corpuscular Hemoglobin Concent 34.1, Red Cell Distribution Width 16.2H, Platelet Count 213, Mean Platelet Volume 5.2L, Neutrophils (%) (Auto) , Lymphocytes (%) (Auto) , Monocytes (%) (Auto) , Eosinophils (%) (Auto) , Basophils (%) (Auto) , Differential Total Cells Counted 100, Neutrophils % ( Manual) 49, Lymphocytes % (Manual) 44, Monocytes % (Manual) 7, Eosinophils % ( Manual) 0, Basophils % (Manual) 0, Band Neutrophils 0, Platelet Estimate Adequate, Platelet Morphology Normal, Anisocytosis 1+, Sodium Level 141, Potassium Level 3.6, Chloride Level 109H, Carbon Dioxide Level 23, Anion Gap 9, Blood Urea Nitrogen 18, Creatinine 1.4H, Estimat Glomerular Filtration Rate 57.3 , Glucose Level 84, Calcium Level 7.0L, Lactate Dehydrogenase 430H 11/22/19 01:00: Urine Legionella Antigen [Pending] 11/22/19 05:45: White Blood Count 6.0, Red Blood Count 2.38L, Hemoglobin 7.1L, Hematocrit 19.9L , Mean Corpuscular Volume 84, Mean Corpuscular Hemoglobin 30.0, Mean Corpuscular Hemoglobin Concent 35.8, Red Cell Distribution Width 15.8H, Platelet Count 201, Mean Platelet Volume 5.0L, Neutrophils (%) (Auto) , Lymphocytes (%) (Auto) , Monocytes (%) (Auto) , Eosinophils (%) (Auto) , Basophils (%) (Auto) , Neutrophils % (Manual) [Pending], Lymphocytes % (Manual) [Pending], Platelet Estimate [Pending], Platelet Morphology [Pending], Sodium Level 134L, Potassium Level 3.2L, Chloride Level 103, Carbon Dioxide Level 21, Anion Gap 10, Blood Urea Nitrogen 19H, Creatinine 1.3, Estimat Glomerular Filtration Rate > 60, Glucose Level 86, Calcium Level 7.1L, Lymphocytes [Pending ], Phosphorus Level 3.8, Magnesium Level 1.5L, Percent CD3 Cells [Pending], Absolute CD3 Count [Pending], Percent CD4 Cells [Pending], Absolute CD4 Count [ Pending], T-Lymphocyte CD4/CD8 Ratio [Pending], Percent CD8 Cells [Pending], Absolute CD8 Count [Pending], HIV-1 RNA (PCR) log10 Value [Pending], HIV-1 RNA Ultraquantitative (PCR) [Pending], Mycoplasma pneumoniae IgG Antibody [Pending] , Mycoplasma pneumoniae IgM Ab Titer [Pending] Height (Feet): 6 Height (Inches): 1.00 Weight (Pounds): 198 General Appearance: no apparent distress EENT: PERRL/EOMI Neck: non-tender Cardiovascular: normal peripheral pulses, normal rate, regular rhythm Respiratory/Chest: crackles/rales Abdomen: normal bowel sounds, non tender, soft Extremities: normal range of motion, non-tender Neurologic: alert, oriented x 3 Sandy Dominguez M.D. Nov 22, 2019 08:27
[2019-11-22] MEDS: Doxycycline Monohydrate 100mg ORAL SCH (09:43)
--- NOTE | 2019-11-22 10:50 | Pulmonology Progress Note ---
Subjective ROS Limited/Unobtainable: No Interval Events: COVID 19 negative Constitutional: Reports: no symptoms HEENT: Repors: no symptoms Respiratory: Reports: shortness of breath Cardiovascular: Reports: no symptoms Gastrointestinal/Abdominal: Reports: no symptoms Allergies: Coded Allergies: No Known Allergies (Unverified , 11/20/19) Objective Last 24 Hour Vital Signs Date Time Temp Pulse Resp B/P (MAP) Pulse Ox O2 Delivery O2 Flow Rate FiO2 11/22/19 04:00 97.9 98 22 142/95 (111) 92 11/22/19 04:00 94 11/22/19 01:37 101.5 11/22/19 00:00 102.0 90 22 143/93 (110) 97 11/22/19 00:00 84 11/21/19 21:00 Nasal Cannula 3.0 11/21/19 20:00 120 11/21/19 20:00 100.8 96 22 143/96 (112) 93 11/21/19 16:00 101.5 102 22 148/102 (117) 97 11/21/19 15:57 107 11/21/19 12:06 88 11/21/19 12:00 100.0 87 20 149/100 (116) 99 11/21/19 11:43 Nasal Cannula 2.0 11/21/19 11:00 98.2 76 15 138/87 99 Room Air 2.0 Intake and Output 11/21/19 11/22/19 18:59 06:59 Intake Total 970 ml Output Total 500 ml Balance 470 ml Intake Oral 720 ml Blood Product 250 ml Output Urine Total 500 ml General Appearance: no acute distress HEENT: normocephalic Respiratory: chest wall non-tender, lungs clear Cardiovascular: normal peripheral pulses, normal rate Abdomen: normal bowel sounds Microbiology Date/Time Source Procedure Growth Status 11/20/19 23:45 Blood Blood Culture - Preliminary NO GROWTH AFTER 24 HOURS Resulted 11/20/19 23:30 Blood Blood Culture - Preliminary NO GROWTH AFTER 24 HOURS Resulted 11/21/19 12:15 Nasopharynx SARS-CoV-2 RdRp Gene Assay - Final Complete 11/20/19 23:45 Nasopharynx Coronavirus COVID-19 PCR (TONY) - Final Complete 11/20/19 23:45 Nasal Nares - Final Complete 11/20/19 23:45 Nasal Nares - Final Complete Laboratory Tests 11/21/19 11:10: White Blood Count 7.2, Red Blood Count 2.61L, Hemoglobin 7.6L, Hematocrit 22.3L , Mean Corpuscular Volume 86, Mean Corpuscular Hemoglobin 29.2, Mean Corpuscular Hemoglobin Concent 34.1, Red Cell Distribution Width 16.2H, Platelet Count 213, Mean Platelet Volume 5.2L, Neutrophils (%) (Auto) , Lymphocytes (%) (Auto) , Monocytes (%) (Auto) , Eosinophils (%) (Auto) , Basophils (%) (Auto) , Differential Total Cells Counted 100, Neutrophils % ( Manual) 49, Lymphocytes % (Manual) 44, Monocytes % (Manual) 7, Eosinophils % ( Manual) 0, Basophils % (Manual) 0, Band Neutrophils 0, Platelet Estimate Adequate, Platelet Morphology Normal, Anisocytosis 1+, Sodium Level 141, Potassium Level 3.6, Chloride Level 109H, Carbon Dioxide Level 23, Anion Gap 9, Blood Urea Nitrogen 18, Creatinine 1.4H, Estimat Glomerular Filtration Rate 57.3 , Glucose Level 84, Calcium Level 7.0L, Lactate Dehydrogenase 430H 11/22/19 01:00: Urine Legionella Antigen [Pending] 11/22/19 05:45: White Blood Count 6.0, Red Blood Count 2.38L, Hemoglobin 7.1L, Hematocrit 19.9L , Mean Corpuscular Volume 84, Mean Corpuscular Hemoglobin 30.0, Mean Corpuscular Hemoglobin Concent 35.8, Red Cell Distribution Width 15.8H, Platelet Count 201, Mean Platelet Volume 5.0L, Neutrophils (%) (Auto) , Lymphocytes (%) (Auto) , Monocytes (%) (Auto) , Eosinophils (%) (Auto) , Basophils (%) (Auto) , Neutrophils % (Manual) [Pending], Lymphocytes % (Manual) [Pending], Platelet Estimate [Pending], Platelet Morphology [Pending], Sodium Level 134L, Potassium Level 3.2L, Chloride Level 103, Carbon Dioxide Level 21, Anion Gap 10, Blood Urea Nitrogen 19H, Creatinine 1.3, Estimat Glomerular Filtration Rate > 60, Glucose Level 86, Calcium Level 7.1L, Lymphocytes [Pending ], Phosphorus Level 3.8, Magnesium Level 1.5L, Percent CD3 Cells [Pending], Absolute CD3 Count [Pending], Percent CD4 Cells [Pending], Absolute CD4 Count [ Pending], T-Lymphocyte CD4/CD8 Ratio [Pending], Percent CD8 Cells [Pending], Absolute CD8 Count [Pending], HIV-1 RNA (PCR) log10 Value [Pending], HIV-1 RNA Ultraquantitative (PCR) [Pending], Mycoplasma pneumoniae IgG Antibody [Pending] , Mycoplasma pneumoniae IgM Ab Titer [Pending] Current Medications Medications (Trade) Dose Ordered Sig/Tiara Route PRN Reason Start Time Stop Time Status Last Admin Dose Admin Acetaminophen (Tylenol) 650 mg Q4H PRN ORAL Temp >100.5 11/21/19 12:00 12/21/19 11:59 11/22/19 09:44 Ceftriaxone Sodium 1 gm/ Dextrose 50 ml @ 100 mls/hr Q24H IVPB 11/21/19 21:00 11/28/19 20:59 11/21/19 21:00 Doxycycline Monohydrate (Doxycycline Monohydrate) 100 mg EVERY 12 HOURS ORAL 11/21/19 22:00 11/28/19 21:59 11/22/19 09:43 Ferrous Sulfate (Feosol) 325 mg THREE TIMES A DAY ORAL 11/21/19 13:00 02/19/20 12:59 11/22/19 09:43 Magnesium Sulfate 100 ml @ 100 mls/hr Q1H IVPB 11/22/19 09:00 11/22/19 11:59 11/22/19 10:47 Morphine Sulfate (Morphine Sulfate) 2 mg Q4H PRN IVP Moderate Pain (Pain Scale 4-6) 11/21/19 19:30 11/28/19 19:29 Morphine Sulfate (Morphine Sulfate) 4 mg Q4H PRN IVP Severe Pain (Pain Scale 7-10) 11/21/19 19:30 11/28/19 19:29 11/22/19 01:43 Assessment/Plan Assessment/Plan IMPRESSION: 1. Bilateral infiltrates, suspect pulmonary edema. 2. Ruled out for COVID-19. 3. Anemia 4. Renal dysfunction. DISCUSSION: Continue diuresis. I will follow carefully. Discussed with Cardiology and Nephrology. Yas Yoder Omar Syed MD Nov 22, 2019 10:50
[2019-11-22 12:00] VITALS: BP 141/100
--- NOTE | 2019-11-22 13:36 | Infectious Diseases Prog Note ---
Assessment/Plan Assessment/Plan A) 1) ? pna, bilateral infiltrates, fevers, chf/edema, ? covid-19 virus infection, ? CAP, ? other viral pna, ? pcp, elevated ldh, covid-19 testing negative 2) recent hospitalization for e.coli enteritis 3) hiv - viral load - ND, ? cd4-count 4) hx ARF and HD P) 1) treat for CAP - change to levofloxacin, ? rash with doxycycline/ceftriaxone 2) consider adding bactrim po until cd4 back with hiv +, elevated LDH, fevers and possible bilateral pna 3) f/u on covid pcr 4) f/u on chest x-ray, labs and cultures 5) covid-19 testing negative, check f/u chest x-ray Subjective Constitutional: Reports: fever, other - rash with abx, ? doxycyline HEENT: Reports: congestion - less Respiratory: Reports: shortness of breath - less Cardiovascular: Denies: chest pain Gastrointestinal/Abdominal: Denies: nausea Genitourinary: Denies: dysuria Skin: Reports: rash Allergies: Coded Allergies: No Known Allergies (Unverified , 11/20/19) Objective Vital Signs Last 24 Hour Vital Signs Date Time Temp Pulse Resp B/P (MAP) Pulse Ox O2 Delivery O2 Flow Rate FiO2 11/22/19 11:53 91 141/100 11/22/19 10:14 99.3 11/22/19 09:00 Nasal Cannula 3.0 11/22/19 08:00 100.8 81 18 144/99 (114) 96 11/22/19 07:28 112 11/22/19 04:00 97.9 98 22 142/95 (111) 92 11/22/19 04:00 94 11/22/19 00:00 102.0 90 22 143/93 (110) 97 11/22/19 00:00 84 11/21/19 21:00 Nasal Cannula 3.0 11/21/19 20:00 120 11/21/19 20:00 100.8 96 22 143/96 (112) 93 11/21/19 16:00 101.5 102 22 148/102 (117) 97 11/21/19 15:57 107 Height (Feet): 6 Height (Inches): 1.00 Weight (Pounds): 198 HEENT: normocephalic, atraumatic, anicteric Respiratory/Chest: crackles/rales, rhonchi - bilaterally Cardiovascular: normal rate, regular rhythm Abdomen: normal bowel sounds, soft, non tender, no organomegaly Skin: rash Microbiology Date/Time Source Procedure Growth Status 11/20/19 23:45 Blood Blood Culture - Preliminary NO GROWTH AFTER 24 HOURS Resulted 11/20/19 23:30 Blood Blood Culture - Preliminary NO GROWTH AFTER 24 HOURS Resulted 11/21/19 12:15 Nasopharynx SARS-CoV-2 RdRp Gene Assay - Final Complete 11/20/19 23:45 Nasopharynx Coronavirus COVID-19 PCR (TONY) - Final Complete 11/20/19 23:45 Nasal Nares - Final Complete 11/20/19 23:45 Nasal Nares - Final Complete Laboratory Tests Test 11/22/19 01:00 11/22/19 05:45 Urine Legionella Antigen Pending White Blood Count 6.0 K/UL (4.8-10.8) Red Blood Count 2.38 M/UL (4.70-6.10) L Hemoglobin 7.1 G/DL (14.2-18.0) L Hematocrit 19.9 % (42.0-52.0) L Mean Corpuscular Volume 84 FL (80-99) Mean Corpuscular Hemoglobin 30.0 PG (27.0-31.0) Mean Corpuscular Hemoglobin Concent 35.8 G/DL (32.0-36.0) Red Cell Distribution Width 15.8 % (11.6-14.8) H Platelet Count 201 K/UL (150-450) Mean Platelet Volume 5.0 FL (6.5-10.1) L Neutrophils (%) (Auto) % (45.0-75.0) Lymphocytes (%) (Auto) % (20.0-45.0) Monocytes (%) (Auto) % (1.0-10.0) Eosinophils (%) (Auto) % (0.0-3.0) Basophils (%) (Auto) % (0.0-2.0) Differential Total Cells Counted 100 Neutrophils % (Manual) 54 % (45-75) Lymphocytes % (Manual) 31 % (20-45) Monocytes % (Manual) 11 % (1-10) H Eosinophils % (Manual) 2 % (0-3) Basophils % (Manual) 2 % (0-2) Band Neutrophils 0 % (0-8) Lymphocytes Pending Platelet Estimate Adequate Platelet Morphology Normal Hypochromasia 3+ Anisocytosis 1+ Spherocytes 2+ Sodium Level 134 MMOL/L (136-145) L Potassium Level 3.2 MMOL/L (3.5-5.1) L Chloride Level 103 MMOL/L (98-107) Carbon Dioxide Level 21 MMOL/L (21-32) Anion Gap 10 mmol/L (5-15) Blood Urea Nitrogen 19 mg/dL (7-18) H Creatinine 1.3 MG/DL (0.55-1.30) Estimat Glomerular Filtration Rate > 60 mL/min (>60) Glucose Level 86 MG/DL (74-106) Calcium Level 7.1 MG/DL (8.5-10.1) L Phosphorus Level 3.8 MG/DL (2.5-4.9) Magnesium Level 1.5 MG/DL (1.8-2.4) L Percent CD3 Cells Pending Absolute CD3 Count Pending Percent CD4 Cells Pending Absolute CD4 Count Pending T-Lymphocyte CD4/CD8 Ratio Pending Percent CD8 Cells Pending Absolute CD8 Count Pending HIV-1 RNA (PCR) log10 Value Pending HIV-1 RNA Ultraquantitative (PCR) Pending Mycoplasma pneumoniae IgG Antibody Pending Mycoplasma pneumoniae IgM Ab Titer Pending Current Medications Medications (Trade) Dose Ordered Sig/Tiara Route PRN Reason Start Time Stop Time Status Last Admin Dose Admin Acetaminophen (Tylenol) 650 mg Q4H PRN ORAL Temp >100.5 11/21/19 12:00 12/21/19 11:59 11/22/19 09:44 Amlodipine Besylate (Norvasc) 5 mg DAILY ORAL 11/22/19 12:00 12/22/19 11:59 11/22/19 11:53 Ceftriaxone Sodium 1 gm/ Dextrose 50 ml @ 100 mls/hr Q24H IVPB 11/21/19 21:00 11/28/19 20:59 11/21/19 21:00 Doxycycline Monohydrate (Doxycycline Monohydrate) 100 mg EVERY 12 HOURS ORAL 11/21/19 22:00 11/28/19 21:59 11/22/19 09:43 Ferrous Sulfate (Feosol) 325 mg THREE TIMES A DAY ORAL 11/21/19 13:00 02/19/20 12:59 11/22/19 13:17 Morphine Sulfate (Morphine Sulfate) 2 mg Q4H PRN IVP Moderate Pain (Pain Scale 4-6) 11/21/19 19:30 11/28/19 19:29 Morphine Sulfate (Morphine Sulfate) 4 mg Q4H PRN IVP Severe Pain (Pain Scale 7-10) 11/21/19 19:30 11/28/19 19:29 11/22/19 01:43 Leeroy Orellana MD Nov 22, 2019 13:36
[2019-11-22] MEDS: Bactrim-DS 1 tab ORAL SCH ×2 (14:37→21:21)
--- NOTE | 2019-11-22 15:01 | General Progress Note ---
Assessment/Plan Problem List: (1) Anemia ICD Codes: D64.9 - Anemia, unspecified SNOMED: 247802412, [id number] Qualifiers: Qualified Codes: D64.9 - Anemia, unspecified (2) CHF exacerbation ICD Codes: I50.9 - Heart failure, unspecified SNOMED: 480568542, [id number] Qualifiers: Qualified Codes: I50.9 - Heart failure, unspecified Status: stable Assessment/Plan: Mr. Rollins is a 34 yo male with HIV, here with 2 days of cough, SOB, fever, and anemia. #Acute on chronic anemia -Has lost a lot of blood from recent E. coli enteritis. no more bleeding since. -s/p 2 u pRBC in the ED with good response. -no transfusion unless Hgb <7. -CBC daily. may need pRBC tmrw. -continue iron #SOB #Cough #Sepsis #Fever #Suspected CAP -check COVID -> neg x2 -s/p ceftriaxone/doxy (11/20-11/21), dc/'ed after drug barfield -continue bactrim DS TID + levaquin (11/21 -) -appreciate ID consult. #HIV -continue home HIV med (Biktarvy) -f/u HIV labs, still pending. -f/u outpatient. Time spent on encounter: 37 mins, 20 mins spent on counseling and coordination of care, d/w RN, consultants. Time of note doesn't reflect time of encounter. Subjective Date patient seen: Nov 22, 2019 ROS Limited/Unobtainable: No Allergies: Coded Allergies: No Known Allergies (Unverified , 11/20/19) Subjective had a nose bleed, now stopped. has itchy, mild rash on both thigh that started this AM. no other bleeding or issues. Still mildly SOB with lying flat, not so much sitting up any more. Objective Last 24 Hour Vital Signs Date Time Temp Pulse Resp B/P (MAP) Pulse Ox O2 Delivery O2 Flow Rate FiO2 11/22/19 12:00 99.3 91 20 141/100 (114) 97 11/22/19 11:53 91 141/100 11/22/19 11:44 88 11/22/19 10:14 99.3 11/22/19 09:00 Nasal Cannula 3.0 11/22/19 08:00 100.8 81 18 144/99 (114) 96 11/22/19 07:28 112 11/22/19 04:00 97.9 98 22 142/95 (111) 92 11/22/19 04:00 94 11/22/19 00:00 102.0 90 22 143/93 (110) 97 11/22/19 00:00 84 11/21/19 21:00 Nasal Cannula 3.0 11/21/19 20:00 120 11/21/19 20:00 100.8 96 22 143/96 (112) 93 11/21/19 16:00 101.5 102 22 148/102 (117) 97 11/21/19 15:57 107 Intake and Output 11/21/19 11/22/19 19:00 07:00 Intake Total 970 ml Output Total 500 ml Balance 470 ml Intake Oral 720 ml Blood Product 250 ml Output Urine Total 500 ml # Voids 2 Laboratory Tests 11/22/19 01:00: Urine Legionella Antigen [Pending] 11/22/19 05:45: White Blood Count 6.0, Red Blood Count 2.38L, Hemoglobin 7.1L, Hematocrit 19.9L , Mean Corpuscular Volume 84, Mean Corpuscular Hemoglobin 30.0, Mean Corpuscular Hemoglobin Concent 35.8, Red Cell Distribution Width 15.8H, Platelet Count 201, Mean Platelet Volume 5.0L, Neutrophils (%) (Auto) , Lymphocytes (%) (Auto) , Monocytes (%) (Auto) , Eosinophils (%) (Auto) , Basophils (%) (Auto) , Differential Total Cells Counted 100, Neutrophils % ( Manual) 54, Lymphocytes % (Manual) 31, Monocytes % (Manual) 11H, Eosinophils % ( Manual) 2, Basophils % (Manual) 2, Band Neutrophils 0, Lymphocytes [Pending], Platelet Estimate Adequate, Platelet Morphology Normal, Hypochromasia 3+, Anisocytosis 1+, Spherocytes 2+, Sodium Level 134L, Potassium Level 3.2L, Chloride Level 103, Carbon Dioxide Level 21, Anion Gap 10, Blood Urea Nitrogen 19H, Creatinine 1.3, Estimat Glomerular Filtration Rate > 60, Glucose Level 86, Calcium Level 7.1L, Phosphorus Level 3.8, Magnesium Level 1.5L, Percent CD3 Cells [Pending], Absolute CD3 Count [Pending], Percent CD4 Cells [Pending], Absolute CD4 Count [Pending], T-Lymphocyte CD4/CD8 Ratio [Pending], Percent CD8 Cells [Pending], Absolute CD8 Count [Pending], HIV-1 RNA (PCR) log10 Value [ Pending], HIV-1 RNA Ultraquantitative (PCR) [Pending], Mycoplasma pneumoniae IgG Antibody [Pending], Mycoplasma pneumoniae IgM Ab Titer [Pending] Height (Feet): 6 Height (Inches): 1.00 Weight (Pounds): 198 General Appearance: no apparent distress, alert EENT: PERRL/EOMI Neck: supple Cardiovascular: normal rate, regular rhythm Respiratory/Chest: lungs clear, normal breath sounds Abdomen: non tender, soft Neurologic: alert, oriented x 3 Skin: rash - anterior thighs b/l Kristopher Orta MD Nov 22, 2019 15:01
--- NOTE | 2019-11-22 15:36 | Cardiology Progress Note ---
Assessment/Plan Status: stable Status Narrative Assessment/Plan Problem List: (1) Anemia (2) CHF exacerbation (3) HIV (4) SOB (5) Pulmonary hypertension -s/p PRBC transfusion with improvement in symptoms -currently stable on room air, hold diuresis -Echocardiogram with severe PAH and TR - will need further work up -Serial CXR -Empiric ABx for PNA - monitor QTC on azithromycin, continue telemetry Subjective Cardiovascular: Reports: no symptoms Respiratory: Reports: no symptoms Gastrointestinal/Abdominal: Reports: no symptoms Genitourinary: Reports: no symptoms Subjective No acute events, HgB stable , no bleeding TTE with severe PAH RVSP 77 and moderate TR, normal LV function Objective Last 24 Hour Vital Signs Date Time Temp Pulse Resp B/P (MAP) Pulse Ox O2 Delivery O2 Flow Rate FiO2 11/22/19 12:00 99.3 91 20 141/100 (114) 97 11/22/19 11:53 91 141/100 11/22/19 11:44 88 11/22/19 10:14 99.3 11/22/19 09:00 Nasal Cannula 3.0 11/22/19 08:00 100.8 81 18 144/99 (114) 96 11/22/19 07:28 112 11/22/19 04:00 97.9 98 22 142/95 (111) 92 11/22/19 04:00 94 11/22/19 00:00 102.0 90 22 143/93 (110) 97 11/22/19 00:00 84 11/21/19 21:00 Nasal Cannula 3.0 11/21/19 20:00 120 11/21/19 20:00 100.8 96 22 143/96 (112) 93 11/21/19 16:00 101.5 102 22 148/102 (117) 97 11/21/19 15:57 107 General Appearance: no apparent distress, alert EENT: PERRL/EOMI, normal ENT inspection, TMs normal, pharynx normal Neck: non-tender, normal alignment, supple, normal inspection, no JVD Rhythm: NSR Cardiovascular: normal peripheral pulses, normal rate, regular rhythm Respiratory/Chest: chest wall non-tender, lungs clear, normal breath sounds Abdomen: normal bowel sounds, non tender, soft Extremities: normal range of motion, non-tender, normal inspection, no calf tenderness 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, no motor/sensory deficits Intake and Output 11/21/19 11/22/19 19:00 07:00 Intake Total 970 ml Output Total 500 ml Balance 470 ml Intake Oral 720 ml Blood Product 250 ml Output Urine Total 500 ml # Voids 2 Laboratory Tests Test 11/22/19 01:00 11/22/19 05:45 Urine Legionella Antigen Pending White Blood Count 6.0 K/UL (4.8-10.8) Red Blood Count 2.38 M/UL (4.70-6.10) L Hemoglobin 7.1 G/DL (14.2-18.0) L Hematocrit 19.9 % (42.0-52.0) L Mean Corpuscular Volume 84 FL (80-99) Mean Corpuscular Hemoglobin 30.0 PG (27.0-31.0) Mean Corpuscular Hemoglobin Concent 35.8 G/DL (32.0-36.0) Red Cell Distribution Width 15.8 % (11.6-14.8) H Platelet Count 201 K/UL (150-450) Mean Platelet Volume 5.0 FL (6.5-10.1) L Neutrophils (%) (Auto) % (45.0-75.0) Lymphocytes (%) (Auto) % (20.0-45.0) Monocytes (%) (Auto) % (1.0-10.0) Eosinophils (%) (Auto) % (0.0-3.0) Basophils (%) (Auto) % (0.0-2.0) Differential Total Cells Counted 100 Neutrophils % (Manual) 54 % (45-75) Lymphocytes % (Manual) 31 % (20-45) Monocytes % (Manual) 11 % (1-10) H Eosinophils % (Manual) 2 % (0-3) Basophils % (Manual) 2 % (0-2) Band Neutrophils 0 % (0-8) Lymphocytes Pending Platelet Estimate Adequate Platelet Morphology Normal Hypochromasia 3+ Anisocytosis 1+ Spherocytes 2+ Sodium Level 134 MMOL/L (136-145) L Potassium Level 3.2 MMOL/L (3.5-5.1) L Chloride Level 103 MMOL/L (98-107) Carbon Dioxide Level 21 MMOL/L (21-32) Anion Gap 10 mmol/L (5-15) Blood Urea Nitrogen 19 mg/dL (7-18) H Creatinine 1.3 MG/DL (0.55-1.30) Estimat Glomerular Filtration Rate > 60 mL/min (>60) Glucose Level 86 MG/DL (74-106) Calcium Level 7.1 MG/DL (8.5-10.1) L Phosphorus Level 3.8 MG/DL (2.5-4.9) Magnesium Level 1.5 MG/DL (1.8-2.4) L Percent CD3 Cells Pending Absolute CD3 Count Pending Percent CD4 Cells Pending Absolute CD4 Count Pending T-Lymphocyte CD4/CD8 Ratio Pending Percent CD8 Cells Pending Absolute CD8 Count Pending HIV-1 RNA (PCR) log10 Value Pending HIV-1 RNA Ultraquantitative (PCR) Pending Mycoplasma pneumoniae IgG Antibody Pending Mycoplasma pneumoniae IgM Ab Titer Pending Microbiology Date/Time Source Procedure Growth Status 11/20/19 23:45 Blood Blood Culture - Preliminary NO GROWTH AFTER 24 HOURS Resulted 11/20/19 23:30 Blood Blood Culture - Preliminary NO GROWTH AFTER 24 HOURS Resulted 11/21/19 12:15 Nasopharynx SARS-CoV-2 RdRp Gene Assay - Final Complete 11/20/19 23:45 Nasopharynx Coronavirus COVID-19 PCR (TONY) - Final Complete 11/20/19 23:45 Nasal Nares - Final Complete 11/20/19 23:45 Nasal Nares - Final Complete Dario Coto MD Nov 22, 2019 15:36
[2019-11-22 16:00] VITALS: BP 151/98
[2019-11-22 20:00] VITALS: BP 139/76
[2019-11-23] VITALS: BP 135/99
[2019-11-23] MEDS: Morphine Sulfate 4mg/ml Inj (IV USE ONLY) IVP PRN (03:00)
[2019-11-23 04:00] VITALS: BP 140/96
[2019-11-23] MEDS: Bactrim-DS 1 tab ORAL SCH ×3 (05:56→21:59)
[2019-11-23 08:00] VITALS: BP 153/99
[2019-11-23 08:13] LABS: HEMATOCRIT 22.2 % (42.0-52.0); HEMOGLOBIN 7.7 G/DL (14.2-18.0); MEAN CORPUSCULAR VOLUME 85 FL (80-99); PLATELET COUNT 199 K/UL (150-450); RED BLOOD COUNT 2.61 M/UL (4.70-6.10); RED CELL DISTRIBUTION WIDTH 16.2 % (11.6-14.8); WHITE BLOOD COUNT 7.1 K/UL (4.8-10.8)
[2019-11-23 08:32] LABS: ANION GAP 10 mmol/L (5-15); BLOOD UREA NITROGEN 16 mg/dL (7-18); CALCIUM 7.4 MG/DL (8.5-10.1); CARBON DIOXIDE 22 MMOL/L (21-32); CHLORIDE 104 MMOL/L (98-107); CREATININE 1.4 MG/DL (0.55-1.30); POTASSIUM 3.7 MMOL/L (3.5-5.1); SODIUM 136 MMOL/L (136-145)
[2019-11-23 09:03] LABS: PHOSPHORUS 3.9 MG/DL (2.5-4.9)
[2019-11-23] MEDS: Levofloxacin 750mg tab ORAL SCH (09:18)
--- NOTE | 2019-11-23 10:28 | Pulmonology Progress Note ---
Subjective ROS Limited/Unobtainable: No Interval Events: COVID 19 negative Constitutional: Reports: fever, other - rash with abx, ? doxycyline HEENT: Repors: no symptoms Respiratory: Reports: shortness of breath Cardiovascular: Reports: no symptoms Gastrointestinal/Abdominal: Denies: nausea Skin: Reports: rash Allergies: Coded Allergies: No Known Allergies (Unverified , 11/20/19) Objective Last 24 Hour Vital Signs Date Time Temp Pulse Resp B/P (MAP) Pulse Ox O2 Delivery O2 Flow Rate FiO2 11/23/19 09:19 108 153/99 11/23/19 08:00 99.9 108 19 153/99 (117) 97 11/23/19 04:00 102 11/23/19 04:00 99.5 94 20 140/96 (111) 94 11/23/19 00:00 97 11/23/19 00:00 97.7 94 22 135/99 (111) 95 11/22/19 21:00 Nasal Cannula 3.0 11/22/19 20:00 97 11/22/19 20:00 100.4 94 22 139/76 (97) 95 11/22/19 17:54 99.1 11/22/19 16:00 101.1 94 18 151/98 (115) 98 11/22/19 15:12 106 11/22/19 12:00 99.3 91 20 141/100 (114) 97 11/22/19 11:53 91 141/100 11/22/19 11:44 88 Intake and Output 11/22/19 11/23/19 19:00 07:00 Intake Total 960 ml 600 ml Output Total 1200 ml 2900 ml Balance -240 ml -2300 ml Intake Oral 960 ml 600 ml Output Urine Total 1200 ml 2900 ml # Voids 3 7 General Appearance: no acute distress HEENT: normocephalic Respiratory: chest wall non-tender, lungs clear Cardiovascular: normal peripheral pulses, normal rate Abdomen: normal bowel sounds Microbiology Date/Time Source Procedure Growth Status 11/20/19 23:45 Blood Blood Culture - Preliminary NO GROWTH AFTER 48 HOURS Resulted 11/20/19 23:30 Blood Blood Culture - Preliminary NO GROWTH AFTER 48 HOURS Resulted 11/21/19 12:15 Nasopharynx SARS-CoV-2 RdRp Gene Assay - Final Complete 11/20/19 23:45 Nasopharynx Coronavirus COVID-19 PCR (TONY) - Final Complete 11/20/19 23:45 Nasal Nares - Final Complete 11/20/19 23:45 Nasal Nares - Final Complete Laboratory Tests 11/23/19 07:50: White Blood Count 7.1, Red Blood Count 2.61L, Hemoglobin 7.7L, Hematocrit 22.2L , Mean Corpuscular Volume 85, Mean Corpuscular Hemoglobin 29.3, Mean Corpuscular Hemoglobin Concent 34.5, Red Cell Distribution Width 16.2H, Platelet Count 199, Mean Platelet Volume 4.8L, Neutrophils (%) (Auto) , Lymphocytes (%) (Auto) , Monocytes (%) (Auto) , Eosinophils (%) (Auto) , Basophils (%) (Auto) , Neutrophils % (Manual) [Pending], Lymphocytes % (Manual) [Pending], Platelet Estimate [Pending], Platelet Morphology [Pending], Sodium Level 136, Potassium Level 3.7, Chloride Level 104, Carbon Dioxide Level 22, Anion Gap 10, Blood Urea Nitrogen 16, Creatinine 1.4H, Estimat Glomerular Filtration Rate 57.3, Glucose Level 85, Calcium Level 7.4L, Phosphorus Level 3.9 , Magnesium Level 1.8 Current Medications Medications (Trade) Dose Ordered Sig/Tiara Route PRN Reason Start Time Stop Time Status Last Admin Dose Admin Acetaminophen (Tylenol) 650 mg Q4H PRN ORAL Temp >100.5 11/21/19 12:00 12/21/19 11:59 11/22/19 17:24 Amlodipine Besylate (Norvasc) 5 mg DAILY ORAL 11/22/19 12:00 12/22/19 11:59 11/23/19 09:19 Ferrous Sulfate (Feosol) 325 mg THREE TIMES A DAY ORAL 11/21/19 13:00 02/19/20 12:59 11/23/19 09:18 Furosemide (Lasix) 40 mg EVERY 12 HOURS IV 11/22/19 21:00 12/22/19 20:59 11/23/19 09:18 Levofloxacin (Levaquin) 750 mg DAILY ORAL 11/23/19 09:00 11/30/19 08:59 11/23/19 09:18 Morphine Sulfate (Morphine Sulfate) 2 mg Q4H PRN IVP Moderate Pain (Pain Scale 4-6) 11/21/19 19:30 11/28/19 19:29 Morphine Sulfate (Morphine Sulfate) 4 mg Q4H PRN IVP Severe Pain (Pain Scale 7-10) 11/21/19 19:30 11/28/19 19:29 11/23/19 03:00 Trimethoprim/ Sulfamethoxazole (Bactrim-DS) 2 tab EVERY 8 HOURS ORAL 11/22/19 14:00 11/29/19 13:59 11/23/19 05:56 Assessment/Plan Assessment/Plan IMPRESSION: 1. Bilateral infiltrates, suspect pulmonary edema. 2. Ruled out for COVID-19. 3. Anemia 4. Renal dysfunction. DISCUSSION: Continue diuresis. I will follow carefully. Discussed with Cardiology and Nephrology. Will need workup for pulm HTN once euvolemic Yas Yoder Omar Syed MD Nov 23, 2019 10:28
--- NOTE | 2019-11-23 10:45 | Diagnostic Imaging Report ---
Indication: Shortness of breath Technique: One view of the chest Comparison: 11/20/2019 Findings: Stable bilateral diffuse infiltrates with an upper lung predominance. Heart size is upper limits of normal. There is suggestion of trace pleural fluid bilaterally. Findings are unchanged Impression: Unchanged, over 3 days, findings as above.
--- NOTE | 2019-11-23 11:03 | Cardiology Progress Note ---
Assessment/Plan Status: stable Status Narrative Assessment/Plan Problem List: (1) Anemia (2) CHF exacerbation (3) HIV (4) SOB (5) Pulmonary hypertension -s/p PRBC transfusion with improvement in symptoms -currently stable on oxygen, continue diuresis to lower PA pressures -Echocardiogram with severe PAH and TR - will need further work up -Serial CXR -Repeat TTE after aggressive diuresis, will need outpatient pulmonary hypertension work up -Mobilize Subjective Subjective No acute events, HgB stable , no bleeding TTE with severe PAH RVSP 77 and moderate TR, normal LV function Responding well to IV lasix, sob improving, still on oxygen but feels better Objective Last 24 Hour Vital Signs Date Time Temp Pulse Resp B/P (MAP) Pulse Ox O2 Delivery O2 Flow Rate FiO2 11/23/19 09:19 108 153/99 11/23/19 08:00 120 11/23/19 08:00 99.9 108 19 153/99 (117) 97 11/23/19 04:00 102 11/23/19 04:00 99.5 94 20 140/96 (111) 94 11/23/19 00:00 97 11/23/19 00:00 97.7 94 22 135/99 (111) 95 11/22/19 21:00 Nasal Cannula 3.0 11/22/19 20:00 97 11/22/19 20:00 100.4 94 22 139/76 (97) 95 11/22/19 17:54 99.1 11/22/19 16:00 101.1 94 18 151/98 (115) 98 11/22/19 15:12 106 11/22/19 12:00 99.3 91 20 141/100 (114) 97 11/22/19 11:53 91 141/100 11/22/19 11:44 88 General Appearance: no apparent distress, alert EENT: PERRL/EOMI, normal ENT inspection, TMs normal, pharynx normal Neck: non-tender, normal alignment, supple, normal inspection, no JVD Rhythm: NSR Cardiovascular: normal peripheral pulses, normal rate, regular rhythm Respiratory/Chest: chest wall non-tender, lungs clear, normal breath sounds, no respiratory distress Abdomen: normal bowel sounds, non tender, soft, no organomegaly Extremities: normal range of motion, non-tender, normal inspection 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, no motor/sensory deficits Intake and Output 11/22/19 11/23/19 19:00 07:00 Intake Total 960 ml 600 ml Output Total 1200 ml 2900 ml Balance -240 ml -2300 ml Intake Oral 960 ml 600 ml Output Urine Total 1200 ml 2900 ml # Voids 3 7 Laboratory Tests Test 11/23/19 07:50 White Blood Count 7.1 K/UL (4.8-10.8) Red Blood Count 2.61 M/UL (4.70-6.10) L Hemoglobin 7.7 G/DL (14.2-18.0) L Hematocrit 22.2 % (42.0-52.0) L Mean Corpuscular Volume 85 FL (80-99) Mean Corpuscular Hemoglobin 29.3 PG (27.0-31.0) Mean Corpuscular Hemoglobin Concent 34.5 G/DL (32.0-36.0) Red Cell Distribution Width 16.2 % (11.6-14.8) H Platelet Count 199 K/UL (150-450) Mean Platelet Volume 4.8 FL (6.5-10.1) L Neutrophils (%) (Auto) % (45.0-75.0) Lymphocytes (%) (Auto) % (20.0-45.0) Monocytes (%) (Auto) % (1.0-10.0) Eosinophils (%) (Auto) % (0.0-3.0) Basophils (%) (Auto) % (0.0-2.0) Differential Total Cells Counted 100 Neutrophils % (Manual) 55 % (45-75) Lymphocytes % (Manual) 35 % (20-45) Monocytes % (Manual) 7 % (1-10) Eosinophils % (Manual) 2 % (0-3) Basophils % (Manual) 1 % (0-2) Band Neutrophils 0 % (0-8) Platelet Estimate Adequate Platelet Morphology Normal Hypochromasia 3+ Anisocytosis 1+ Spherocytes 2+ Sodium Level 136 MMOL/L (136-145) Potassium Level 3.7 MMOL/L (3.5-5.1) Chloride Level 104 MMOL/L (98-107) Carbon Dioxide Level 22 MMOL/L (21-32) Anion Gap 10 mmol/L (5-15) Blood Urea Nitrogen 16 mg/dL (7-18) Creatinine 1.4 MG/DL (0.55-1.30) H Estimat Glomerular Filtration Rate 57.3 mL/min (>60) Glucose Level 85 MG/DL (74-106) Calcium Level 7.4 MG/DL (8.5-10.1) L Phosphorus Level 3.9 MG/DL (2.5-4.9) Magnesium Level 1.8 MG/DL (1.8-2.4) Microbiology Date/Time Source Procedure Growth Status 11/20/19 23:45 Blood Blood Culture - Preliminary NO GROWTH AFTER 48 HOURS Resulted 11/20/19 23:30 Blood Blood Culture - Preliminary NO GROWTH AFTER 48 HOURS Resulted 11/21/19 12:15 Nasopharynx SARS-CoV-2 RdRp Gene Assay - Final Complete 11/20/19 23:45 Nasopharynx Coronavirus COVID-19 PCR (TONY) - Final Complete 11/20/19 23:45 Nasal Nares - Final Complete 11/20/19 23:45 Nasal Nares - Final Complete Dario Coto MD Nov 23, 2019 11:03
[2019-11-23 12:00] VITALS: BP 138/75
--- NOTE | 2019-11-23 12:59 | General Progress Note ---
Assessment/Plan Problem List: (1) Anemia ICD Codes: D64.9 - Anemia, unspecified SNOMED: 743623521, [id number] Qualifiers: Qualified Codes: D64.9 - Anemia, unspecified (2) CHF exacerbation ICD Codes: I50.9 - Heart failure, unspecified SNOMED: 234942924, [id number] Qualifiers: Qualified Codes: I50.9 - Heart failure, unspecified Status: stable Assessment/Plan: Mr. Rollins is a 34 yo male with HIV, here with 2 days of cough, SOB, fever, and anemia. #Acute on chronic anemia #Epistaxsis - resolved -Has lost a lot of blood from recent E. coli enteritis. no more bleeding since. -s/p 2 u pRBC in the ED (11/20) with good response. -no transfusion unless Hgb <7. -CBC daily. -continue iron #SOB #Cough #Acute hypoxic respiratory failure - resolved #Sepsis #Fever #Suspected CAP -check COVID -> neg x2 -s/p ceftriaxone/doxy (11/20-11/21), dc/'ed after drug barfield -continue bactrim DS TID + levaquin (11/21 -) -Oxygen only for SpO2 <92%, d/w RN. -appreciate ID consult. #Leg edema -Continue IV Lasix BID -TTE with normal EF. Overloaded. #HIV -continue home HIV med (Biktarvy) -f/u HIV labs, still pending. -f/u outpatient. Time spent on encounter: 39 mins, 20 mins spent on counseling and coordination of care, d/w RN, consultants. Time of note doesn't reflect time of encounter. Subjective Date patient seen: Nov 23, 2019 ROS Limited/Unobtainable: No Constitutional: Denies: no symptoms, chills, diaphoresis, fever, malaise, weakness, other HEENT: Denies: no symptoms, eye pain, blurred vision, tearing, double vision, ear pain, ear discharge, nose pain, nose congestion, throat pain, throat swelling, mouth pain, mouth swelling, other Cardiovascular: Denies: no symptoms, chest pain, edema, irregular heart rate, lightheadedness, palpitations, syncope, other Respiratory: Reports: no symptoms, cough, orthopnea, shortness of breath, SOB with excertion, SOB at rest, sputum, stridor, wheezing, other Gastrointestinal/Abdominal: Denies: no symptoms, abdomen distended, abdominal pain, black stools, tarry stools, blood in stool, constipated, diarrhea, difficulty swallowing, nausea, poor appetite, poor fluid intake, rectal bleeding , vomiting, other Genitourinary: Denies: no symptoms, burning, discharge, frequency, flank pain, hematuria, incontinence, pain, urgency, other Neurologic/Psychiatric: Denies: no symptoms, anxiety, depressed, emotional problems, headache, numbness, paresthesia, pre-existing deficit, seizure, tingling, tremors, weakness, other Endocrine: Denies: no symptoms, excessive sweating, flushing, intolerance to cold, intolerance to heat, increased hunger, increased thirst, increased urine, unexplained weight gain, unexplained weight loss, other Hematologic/Lymphatic: Reports: other - nose bleed Allergies: Coded Allergies: No Known Allergies (Unverified , 11/20/19) Subjective had a nose bleed again with NC use. rash improved. still SOB, coughing, kaiden with lying flat. not so much when sitting up, walking. Objective Last 24 Hour Vital Signs Date Time Temp Pulse Resp B/P (MAP) Pulse Ox O2 Delivery O2 Flow Rate FiO2 11/23/19 12:00 98.9 104 18 138/75 (96) 97 11/23/19 09:19 108 153/99 11/23/19 09:00 Room Air 3.0 11/23/19 08:00 120 11/23/19 08:00 99.9 108 19 153/99 (117) 97 11/23/19 04:00 102 11/23/19 04:00 99.5 94 20 140/96 (111) 94 11/23/19 00:00 97 11/23/19 00:00 97.7 94 22 135/99 (111) 95 11/22/19 21:00 Nasal Cannula 3.0 11/22/19 20:00 97 11/22/19 20:00 100.4 94 22 139/76 (97) 95 11/22/19 17:54 99.1 11/22/19 16:00 101.1 94 18 151/98 (115) 98 11/22/19 15:12 106 Intake and Output 11/22/19 11/23/19 19:00 07:00 Intake Total 960 ml 600 ml Output Total 1200 ml 2900 ml Balance -240 ml -2300 ml Intake Oral 960 ml 600 ml Output Urine Total 1200 ml 2900 ml # Voids 3 7 Laboratory Tests 11/23/19 07:50: White Blood Count 7.1, Red Blood Count 2.61L, Hemoglobin 7.7L, Hematocrit 22.2L , Mean Corpuscular Volume 85, Mean Corpuscular Hemoglobin 29.3, Mean Corpuscular Hemoglobin Concent 34.5, Red Cell Distribution Width 16.2H, Platelet Count 199, Mean Platelet Volume 4.8L, Neutrophils (%) (Auto) , Lymphocytes (%) (Auto) , Monocytes (%) (Auto) , Eosinophils (%) (Auto) , Basophils (%) (Auto) , Differential Total Cells Counted 100, Neutrophils % ( Manual) 55, Lymphocytes % (Manual) 35, Monocytes % (Manual) 7, Eosinophils % ( Manual) 2, Basophils % (Manual) 1, Band Neutrophils 0, Platelet Estimate Adequate, Platelet Morphology Normal, Hypochromasia 3+, Anisocytosis 1+, Spherocytes 2+, Sodium Level 136, Potassium Level 3.7, Chloride Level 104, Carbon Dioxide Level 22, Anion Gap 10, Blood Urea Nitrogen 16, Creatinine 1.4H, Estimat Glomerular Filtration Rate 57.3, Glucose Level 85, Calcium Level 7.4L, Phosphorus Level 3.9, Magnesium Level 1.8 Height (Feet): 6 Height (Inches): 1.00 Weight (Pounds): 198 General Appearance: no apparent distress, alert EENT: PERRL/EOMI Neck: supple Cardiovascular: normal rate, regular rhythm Respiratory/Chest: lungs clear, normal breath sounds Abdomen: non tender, soft Edema: moderate edema Neurologic: alert, oriented x 3 Kristopher Orta MD Nov 23, 2019 12:59
--- NOTE | 2019-11-23 14:08 | Nephrology Progress Note ---
Assessment/Plan Plan #recent ATN due to HUs? HD depenedent resolved - cr stablized #SOB r/o covid #recent ecoli enteritis #HIV #anemia - lasix 40 IV BID - repelete mag and K - monitor cr - echo with elevated PA pessures - r/o covid - monitor bmp, mag and phos - avoid nephrotoxins - pulm eval - ID eval - on cefepime and levaqui - 2d echo reviewed - transfuse prbc prn - monitor hemoglobin Subjective Subjective Cr stable K low repleted echo with elevated PA pressures Objective Objective Last 24 Hour Vital Signs Date Time Temp Pulse Resp B/P (MAP) Pulse Ox O2 Delivery O2 Flow Rate FiO2 11/23/19 12:00 98.9 104 18 138/75 (96) 97 11/23/19 09:19 108 153/99 11/23/19 09:00 Room Air 3.0 11/23/19 08:00 120 11/23/19 08:00 99.9 108 19 153/99 (117) 97 11/23/19 04:00 102 11/23/19 04:00 99.5 94 20 140/96 (111) 94 11/23/19 00:00 97 11/23/19 00:00 97.7 94 22 135/99 (111) 95 11/22/19 21:00 Nasal Cannula 3.0 11/22/19 20:00 97 11/22/19 20:00 100.4 94 22 139/76 (97) 95 11/22/19 17:54 99.1 11/22/19 16:00 101.1 94 18 151/98 (115) 98 11/22/19 15:12 106 Intake and Output 11/22/19 11/23/19 19:00 07:00 Intake Total 960 ml 600 ml Output Total 1200 ml 2900 ml Balance -240 ml -2300 ml Intake Oral 960 ml 600 ml Output Urine Total 1200 ml 2900 ml # Voids 3 7 Laboratory Tests 11/23/19 07:50: White Blood Count 7.1, Red Blood Count 2.61L, Hemoglobin 7.7L, Hematocrit 22.2L , Mean Corpuscular Volume 85, Mean Corpuscular Hemoglobin 29.3, Mean Corpuscular Hemoglobin Concent 34.5, Red Cell Distribution Width 16.2H, Platelet Count 199, Mean Platelet Volume 4.8L, Neutrophils (%) (Auto) , Lymphocytes (%) (Auto) , Monocytes (%) (Auto) , Eosinophils (%) (Auto) , Basophils (%) (Auto) , Differential Total Cells Counted 100, Neutrophils % ( Manual) 55, Lymphocytes % (Manual) 35, Monocytes % (Manual) 7, Eosinophils % ( Manual) 2, Basophils % (Manual) 1, Band Neutrophils 0, Platelet Estimate Adequate, Platelet Morphology Normal, Hypochromasia 3+, Anisocytosis 1+, Spherocytes 2+, Sodium Level 136, Potassium Level 3.7, Chloride Level 104, Carbon Dioxide Level 22, Anion Gap 10, Blood Urea Nitrogen 16, Creatinine 1.4H, Estimat Glomerular Filtration Rate 57.3, Glucose Level 85, Calcium Level 7.4L, Phosphorus Level 3.9, Magnesium Level 1.8 Height (Feet): 6 Height (Inches): 1.00 Weight (Pounds): 198 Sandy Dominguez M.D. Nov 23, 2019 14:08
[2019-11-23 16:00] VITALS: BP 134/89
--- NOTE | 2019-11-23 17:36 | Infectious Diseases Prog Note ---
Assessment/Plan Assessment/Plan A) 1) ? pna, bilateral infiltrates, fevers, ? chf/edema, ? covid-19 virus infection , ? CAP, ? other viral pna, ? pneumocystis pna, elevated ldh, covid-19 testing negative 2) recent hospitalization for e.coli enteritis and sepsis 3) hiv - viral load - ND, ? cd4-count 4) hx ARF and HD 5) allergies - nkda, sh-neg, fh-nc, mar noted 6) d/w RN 7) rash improved off doxycycline and ceftriaxone P) 1) levofloxacin - day # 3/7 2) bactrim - day # 2 - ? pneumocystis pna, f/u on LDH and CD4 3) covid-19 testing negative x 2 4) f/u on chest x-ray, labs, LDH, CD4 5) f/u on viral load and CD4 6) biktarvy from home - not available at [facility] Subjective Constitutional: Denies: fever HEENT: Reports: congestion - less Respiratory: Reports: shortness of breath - less Cardiovascular: Denies: chest pain Gastrointestinal/Abdominal: Denies: nausea, vomiting, diarrhea Genitourinary: Denies: dysuria Neurologic: Denies: headache Psychiatric: Denies: depression Skin: Denies: rash Hematologic: Denies: bleeding Musculoskeletal: Denies: pain Allergies: Coded Allergies: No Known Allergies (Unverified , 11/20/19) Objective Vital Signs Last 24 Hour Vital Signs Date Time Temp Pulse Resp B/P (MAP) Pulse Ox O2 Delivery O2 Flow Rate FiO2 11/23/19 16:00 101.3 102 20 134/89 (104) 96 11/23/19 12:00 98.9 104 18 138/75 (96) 97 11/23/19 12:00 99 11/23/19 09:19 108 153/99 11/23/19 09:00 Room Air 3.0 11/23/19 08:00 120 11/23/19 08:00 99.9 108 19 153/99 (117) 97 11/23/19 04:00 102 11/23/19 04:00 99.5 94 20 140/96 (111) 94 11/23/19 00:00 97 11/23/19 00:00 97.7 94 22 135/99 (111) 95 11/22/19 21:00 Nasal Cannula 3.0 11/22/19 20:00 97 11/22/19 20:00 100.4 94 22 139/76 (97) 95 11/22/19 17:54 99.1 Height (Feet): 6 Height (Inches): 1.00 Weight (Pounds): 198 General Appearance: no acute distress HEENT: normocephalic, atraumatic, anicteric, mucous membranes moist Respiratory/Chest: no respiratory distress, no accessory muscle use, crackles/ rales, rhonchi - bilaterally Cardiovascular: normal rate, regular rhythm, no gallop/murmur, no JVD Abdomen: normal bowel sounds, soft, non tender, no organomegaly, non distended Genitourinary: other - no kelly Extremities: no cyanosis Skin: no lesions, no ulcers, rash - less 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 Heart size is upper limits of normal. There is suggestion of trace pleural fluid bilaterally. Findings are unchanged Impression: Unchanged, over 3 days, findings as above. Microbiology Date/Time Source Procedure Growth Status 11/20/19 23:45 Blood Blood Culture - Preliminary NO GROWTH AFTER 48 HOURS Resulted 11/20/19 23:30 Blood Blood Culture - Preliminary NO GROWTH AFTER 48 HOURS Resulted 11/21/19 12:15 Nasopharynx SARS-CoV-2 RdRp Gene Assay - Final Complete 11/20/19 23:45 Nasopharynx Coronavirus COVID-19 PCR (TONY) - Final Complete 11/20/19 23:45 Nasal Nares - Final Complete 11/20/19 23:45 Nasal Nares - Final Complete Laboratory Tests Test 11/23/19 07:50 White Blood Count 7.1 K/UL (4.8-10.8) Red Blood Count 2.61 M/UL (4.70-6.10) L Hemoglobin 7.7 G/DL (14.2-18.0) L Hematocrit 22.2 % (42.0-52.0) L Mean Corpuscular Volume 85 FL (80-99) Mean Corpuscular Hemoglobin 29.3 PG (27.0-31.0) Mean Corpuscular Hemoglobin Concent 34.5 G/DL (32.0-36.0) Red Cell Distribution Width 16.2 % (11.6-14.8) H Platelet Count 199 K/UL (150-450) Mean Platelet Volume 4.8 FL (6.5-10.1) L Neutrophils (%) (Auto) % (45.0-75.0) Lymphocytes (%) (Auto) % (20.0-45.0) Monocytes (%) (Auto) % (1.0-10.0) Eosinophils (%) (Auto) % (0.0-3.0) Basophils (%) (Auto) % (0.0-2.0) Differential Total Cells Counted 100 Neutrophils % (Manual) 55 % (45-75) Lymphocytes % (Manual) 35 % (20-45) Monocytes % (Manual) 7 % (1-10) Eosinophils % (Manual) 2 % (0-3) Basophils % (Manual) 1 % (0-2) Band Neutrophils 0 % (0-8) Platelet Estimate Adequate Platelet Morphology Normal Hypochromasia 3+ Anisocytosis 1+ Spherocytes 2+ Sodium Level 136 MMOL/L (136-145) Potassium Level 3.7 MMOL/L (3.5-5.1) Chloride Level 104 MMOL/L (98-107) Carbon Dioxide Level 22 MMOL/L (21-32) Anion Gap 10 mmol/L (5-15) Blood Urea Nitrogen 16 mg/dL (7-18) Creatinine 1.4 MG/DL (0.55-1.30) H Estimat Glomerular Filtration Rate 57.3 mL/min (>60) Glucose Level 85 MG/DL (74-106) Calcium Level 7.4 MG/DL (8.5-10.1) L Phosphorus Level 3.9 MG/DL (2.5-4.9) Magnesium Level 1.8 MG/DL (1.8-2.4) Current Medications Medications (Trade) Dose Ordered Sig/Tiara Route PRN Reason Start Time Stop Time Status Last Admin Dose Admin Acetaminophen (Tylenol) 650 mg Q4H PRN ORAL Temp >100.5 11/21/19 12:00 12/21/19 11:59 11/23/19 16:16 Amlodipine Besylate (Norvasc) 5 mg DAILY ORAL 11/22/19 12:00 12/22/19 11:59 11/23/19 09:19 Ferrous Sulfate (Feosol) 325 mg THREE TIMES A DAY ORAL 11/21/19 13:00 02/19/20 12:59 11/23/19 14:21 Furosemide (Lasix) 40 mg EVERY 12 HOURS IV 11/22/19 21:00 12/22/19 20:59 11/23/19 09:18 Levofloxacin (Levaquin) 750 mg DAILY ORAL 11/23/19 09:00 11/30/19 08:59 11/23/19 09:18 Morphine Sulfate (Morphine Sulfate) 2 mg Q4H PRN IVP Moderate Pain (Pain Scale 4-6) 11/21/19 19:30 11/28/19 19:29 Morphine Sulfate (Morphine Sulfate) 4 mg Q4H PRN IVP Severe Pain (Pain Scale 7-10) 11/21/19 19:30 11/28/19 19:29 11/23/19 03:00 Trimethoprim/ Sulfamethoxazole (Bactrim-DS) 2 tab EVERY 8 HOURS ORAL 11/22/19 14:00 11/29/19 13:59 11/23/19 14:21 Leeroy Orellana MD Nov 23, 2019 17:36
[2019-11-23 20:00] VITALS: BP 140/96
[2019-11-23] MEDS: Morphine Sulfate 2mg/ml Inj(IV/IM USE ONLY) IVP PRN (21:14)
[2019-11-24] VITALS: BP 135/95
[2019-11-24 04:00] VITALS: BP 138/87
[2019-11-24] MEDS: Bactrim-DS 1 tab ORAL SCH ×3 (06:04→21:22)
[2019-11-24 07:17] LABS: ALANINE AMINOTRANSFERASE 16 U/L (12-78); ALBUMIN 2.4 G/DL (3.4-5.0); ALKALINE PHOSPHATASE 91 U/L (46-116); ASPARTATE AMINO TRANSFERASE 45 U/L (15-37); BILIRUBIN,DIRECT 0.5 MG/DL (0.0-0.3); BILIRUBIN,TOTAL 0.9 MG/DL (0.2-1.0); LACTATE DEHYDROGENASE 450 U/L (81-234)
[2019-11-24 07:19] LABS: EOSINOPHILS % (AUTO) 0.7 % (0.0-3.0); HEMATOCRIT 27.2 % (42.0-52.0); HEMOGLOBIN 8.8 G/DL (14.2-18.0); LYMPHOCYTES % (AUTO) 43.4 % (20.0-45.0); MEAN CORPUSCULAR VOLUME 91 FL (80-99); MONOCYTES % (AUTO) 5.5 % (1.0-10.0); NEUTROPHILS % (AUTO) 49.3 % (45.0-75.0); PLATELET COUNT 197 K/UL (150-450); RED BLOOD COUNT 2.98 M/UL (4.70-6.10); RED CELL DISTRIBUTION WIDTH 15.5 % (11.6-14.8); WHITE BLOOD COUNT 6.9 K/UL (4.8-10.8)
[2019-11-24 07:21] LABS: ANION GAP 9 mmol/L (5-15); BLOOD UREA NITROGEN 18 mg/dL (7-18); CALCIUM 7.7 MG/DL (8.5-10.1); CARBON DIOXIDE 24 MMOL/L (21-32); CHLORIDE 101 MMOL/L (98-107); CREATININE 1.8 MG/DL (0.55-1.30); POTASSIUM 3.9 MMOL/L (3.5-5.1); SODIUM 134 MMOL/L (136-145)
[2019-11-24 08:00] VITALS: BP 123/81
[2019-11-24] MEDS: Levofloxacin 750mg tab ORAL SCH (10:24)
--- NOTE | 2019-11-24 11:10 | Pulmonology Progress Note ---
Subjective ROS Limited/Unobtainable: No Interval Events: COVID 19 negative Constitutional: Denies: fever HEENT: Repors: no symptoms Respiratory: Reports: shortness of breath Cardiovascular: Reports: no symptoms Gastrointestinal/Abdominal: Denies: nausea, vomiting, diarrhea Psychiatric: Denies: depression Skin: Denies: rash Musculoskeletal: Denies: pain Allergies: Coded Allergies: No Known Allergies (Unverified , 11/20/19) Objective Last 24 Hour Vital Signs Date Time Temp Pulse Resp B/P (MAP) Pulse Ox O2 Delivery O2 Flow Rate FiO2 11/24/19 10:24 103 123/81 11/24/19 08:00 97.9 103 20 123/81 (95) 98 11/24/19 04:00 99.4 98 19 138/87 (104) 91 11/24/19 04:00 108 11/24/19 00:00 100.1 97 20 135/95 (108) 91 11/24/19 00:00 93 11/23/19 21:00 Room Air 3.0 11/23/19 20:00 99.9 102 21 140/96 (111) 91 11/23/19 20:00 114 11/23/19 16:00 101.3 102 20 134/89 (104) 96 11/23/19 16:00 106 11/23/19 12:00 98.9 104 18 138/75 (96) 97 11/23/19 12:00 99 Intake and Output 11/23/19 11/24/19 19:00 07:00 Intake Total 140 ml 600 ml Output Total 1200 ml 1450 ml Balance -1060 ml -850 ml Intake Oral 140 ml 600 ml Output Urine Total 1200 ml 1450 ml # Voids 3 General Appearance: no acute distress HEENT: normocephalic Respiratory: chest wall non-tender, lungs clear Cardiovascular: normal peripheral pulses, normal rate Abdomen: normal bowel sounds Microbiology Date/Time Source Procedure Growth Status 11/21/19 12:15 Nasopharynx SARS-CoV-2 RdRp Gene Assay - Final Complete Laboratory Tests 11/24/19 06:22: White Blood Count 6.9, Red Blood Count 2.98L, Hemoglobin 8.8L, Hematocrit 27.2L , Mean Corpuscular Volume 91, Mean Corpuscular Hemoglobin 29.6, Mean Corpuscular Hemoglobin Concent 32.5, Red Cell Distribution Width 15.5H, Platelet Count 197, Mean Platelet Volume 5.9L, Neutrophils (%) (Auto) 49.3, Lymphocytes (%) (Auto) 43.4, Monocytes (%) (Auto) 5.5, Eosinophils (%) (Auto) 0.7, Basophils (%) (Auto) 1.0, Sodium Level 134L, Potassium Level 3.9, Chloride Level 101, Carbon Dioxide Level 24, Anion Gap 9, Blood Urea Nitrogen 18, Creatinine 1.8H, Estimat Glomerular Filtration Rate 42.9, Glucose Level 88, Calcium Level 7.7L, Phosphorus Level 4.4, Magnesium Level 1.8, Total Bilirubin 0.9, Direct Bilirubin 0.5H, Aspartate Amino Transf (AST/SGOT) 45H, Alanine Aminotransferase (ALT/SGPT) 16, Alkaline Phosphatase 91, Lactate Dehydrogenase 450H, Total Protein 9.4H, Albumin 2.4L Current Medications Medications (Trade) Dose Ordered Sig/Tiara Route PRN Reason Start Time Stop Time Status Last Admin Dose Admin Acetaminophen (Tylenol) 650 mg Q4H PRN ORAL Temp >100.5 11/21/19 12:00 12/21/19 11:59 11/23/19 16:16 Amlodipine Besylate (Norvasc) 5 mg DAILY ORAL 11/22/19 12:00 12/22/19 11:59 11/24/19 10:24 Ferrous Sulfate (Feosol) 325 mg THREE TIMES A DAY ORAL 11/21/19 13:00 02/19/20 12:59 11/24/19 10:24 Furosemide (Lasix) 40 mg Q12H IV 11/24/19 18:00 12/24/19 17:59 Levofloxacin (Levaquin) 750 mg DAILY ORAL 11/23/19 09:00 11/30/19 08:59 11/24/19 10:24 Morphine Sulfate (Morphine Sulfate) 2 mg Q4H PRN IVP Moderate Pain (Pain Scale 4-6) 11/21/19 19:30 11/28/19 19:29 11/23/19 21:14 Morphine Sulfate (Morphine Sulfate) 4 mg Q4H PRN IVP Severe Pain (Pain Scale 7-10) 11/21/19 19:30 11/28/19 19:29 11/23/19 03:00 Trimethoprim/ Sulfamethoxazole (Bactrim-DS) 2 tab EVERY 8 HOURS ORAL 11/22/19 14:00 11/29/19 13:59 11/24/19 06:04 Assessment/Plan Assessment/Plan IMPRESSION: 1. Bilateral infiltrates, suspect pulmonary edema. 2. Ruled out for COVID-19. 3. Anemia 4. Renal dysfunction. DISCUSSION: Continue diuresis. I will follow carefully. Discussed with Cardiology and Nephrology. Will need workup for pulm HTN once euvolemic Consider bronchoscopy Will review chest CT Discussed with ID; still febrile Saturating better on low flow o2 Yas Yoder Omar Syed MD Nov 24, 2019 11:10
[2019-11-24 12:00] VITALS: BP 124/81
[2019-11-24] MEDS: Fluconazole 100mg tab ORAL SCH (12:23)
[2019-11-24] MEDS: Patient's Own Med - BIKTARVY 50-200-25MG TAB ORAL SCH (12:23)
--- NOTE | 2019-11-24 13:06 | Cardiology Progress Note ---
Assessment/Plan Status: stable Status Narrative Assessment/Plan Problem List: (1) Anemia (2) CHF exacerbation (3) HIV (4) SOB (5) Pulmonary hypertension -s/p PRBC transfusion with improvement in symptoms -currently stable on oxygen, continue diuresis to lower PA pressures -Echocardiogram with severe PAH and TR - will need further work up -Serial CXR -Repeat TTE after aggressive diuresis, will need outpatient pulmonary hypertension work up -Mobilize Subjective Cardiovascular: Reports: no symptoms Respiratory: Reports: no symptoms Gastrointestinal/Abdominal: Reports: no symptoms Genitourinary: Reports: no symptoms Subjective No acute events, HgB stable , no bleeding TTE with severe PAH RVSP 77 and moderate TR, normal LV function Responding well to IV lasix, sob improving, still on oxygen but feels better Objective Last 24 Hour Vital Signs Date Time Temp Pulse Resp B/P (MAP) Pulse Ox O2 Delivery O2 Flow Rate FiO2 11/24/19 12:00 98 11/24/19 10:24 103 123/81 11/24/19 09:00 Room Air 2.0 11/24/19 08:00 97.9 103 20 123/81 (95) 98 11/24/19 08:00 107 11/24/19 04:00 99.4 98 19 138/87 (104) 91 11/24/19 04:00 108 11/24/19 00:00 100.1 97 20 135/95 (108) 91 11/24/19 00:00 93 11/23/19 21:00 Room Air 3.0 11/23/19 20:00 99.9 102 21 140/96 (111) 91 11/23/19 20:00 114 11/23/19 16:00 101.3 102 20 134/89 (104) 96 11/23/19 16:00 106 General Appearance: no apparent distress, alert EENT: PERRL/EOMI, normal ENT inspection, TMs normal, pharynx normal Neck: non-tender, normal alignment, supple, normal inspection, no JVD Rhythm: NSR Cardiovascular: normal peripheral pulses, normal rate Respiratory/Chest: chest wall non-tender, lungs clear, normal breath sounds Abdomen: normal bowel sounds, non tender, soft, no organomegaly Extremities: normal range of motion, non-tender, normal inspection Neurologic: [employer] flat[employer] II-XII grossly normal, no motor/sensory deficits Intake and Output 11/23/19 11/24/19 18:59 06:59 Intake Total 140 ml 600 ml Output Total 1200 ml 1450 ml Balance -1060 ml -850 ml Intake Oral 140 ml 600 ml Output Urine Total 1200 ml 1450 ml # Voids 3 Laboratory Tests Test 11/24/19 06:22 White Blood Count 6.9 K/UL (4.8-10.8) Red Blood Count 2.98 M/UL (4.70-6.10) L Hemoglobin 8.8 G/DL (14.2-18.0) L Hematocrit 27.2 % (42.0-52.0) L Mean Corpuscular Volume 91 FL (80-99) Mean Corpuscular Hemoglobin 29.6 PG (27.0-31.0) Mean Corpuscular Hemoglobin Concent 32.5 G/DL (32.0-36.0) Red Cell Distribution Width 15.5 % (11.6-14.8) H Platelet Count 197 K/UL (150-450) Mean Platelet Volume 5.9 FL (6.5-10.1) L Neutrophils (%) (Auto) 49.3 % (45.0-75.0) Lymphocytes (%) (Auto) 43.4 % (20.0-45.0) Monocytes (%) (Auto) 5.5 % (1.0-10.0) Eosinophils (%) (Auto) 0.7 % (0.0-3.0) Basophils (%) (Auto) 1.0 % (0.0-2.0) Sodium Level 134 MMOL/L (136-145) L Potassium Level 3.9 MMOL/L (3.5-5.1) Chloride Level 101 MMOL/L (98-107) Carbon Dioxide Level 24 MMOL/L (21-32) Anion Gap 9 mmol/L (5-15) Blood Urea Nitrogen 18 mg/dL (7-18) Creatinine 1.8 MG/DL (0.55-1.30) H Estimat Glomerular Filtration Rate 42.9 mL/min (>60) Glucose Level 88 MG/DL (74-106) Calcium Level 7.7 MG/DL (8.5-10.1) L Phosphorus Level 4.4 MG/DL (2.5-4.9) Magnesium Level 1.8 MG/DL (1.8-2.4) Total Bilirubin 0.9 MG/DL (0.2-1.0) Direct Bilirubin 0.5 MG/DL (0.0-0.3) H Aspartate Amino Transf (AST/SGOT) 45 U/L (15-37) H Alanine Aminotransferase (ALT/SGPT) 16 U/L (12-78) Alkaline Phosphatase 91 U/L (46-116) Lactate Dehydrogenase 467 U/L (81-234) H Total Protein 9.4 G/DL (6.4-8.2) H Albumin 2.4 G/DL (3.4-5.0) L Dario Coto MD Nov 24, 2019 13:06
--- NOTE | 2019-11-24 14:33 | Nephrology Progress Note ---
Assessment/Plan Plan #recent ATN due to HUs? HD depenedent resolved - cr stablized #SOB r/o covid #recent ecoli enteritis #HIV #anemia - lasix 40 IV BID - replete mag and K - monitor cr closely - echo with elevated PA pessures - r/o covid - monitor bmp, mag and phos - avoid nephrotoxins - pulm eval - ID eval - on cefepime and levaquin - 2d echo reviewed - transfuse prbc prn - monitor hemoglobin Subjective ROS Limited/Unobtainable: No Constitutional: Denies: no symptoms, chills, diaphoresis, fever, malaise, weakness, other HEENT: Denies: no symptoms, eye pain, blurred vision, tearing, double vision, ear pain, ear discharge, nose pain, nose congestion, throat pain, throat swelling, mouth pain, mouth swelling, other Genitourinary: Denies: no symptoms, burning, discharge, frequency, flank pain, hematuria, incontinence, pain, urgency, other Neurologic/Psychiatric: Denies: no symptoms, anxiety, depressed, emotional problems, headache, numbness, paresthesia, pre-existing deficit, seizure, tingling, tremors, weakness, other Subjective Cr uptrending K low repleted echo with elevated PA pressures continues to have low grade temps Objective Objective Last 24 Hour Vital Signs Date Time Temp Pulse Resp B/P (MAP) Pulse Ox O2 Delivery O2 Flow Rate FiO2 11/24/19 12:00 98 11/24/19 12:00 99.7 103 20 124/81 (95) 97 11/24/19 10:24 103 123/81 11/24/19 09:00 Room Air 2.0 11/24/19 08:00 97.9 103 20 123/81 (95) 98 11/24/19 08:00 107 11/24/19 04:00 99.4 98 19 138/87 (104) 91 11/24/19 04:00 108 11/24/19 00:00 100.1 97 20 135/95 (108) 91 11/24/19 00:00 93 11/23/19 21:00 Room Air 3.0 11/23/19 20:00 99.9 102 21 140/96 (111) 91 11/23/19 20:00 114 11/23/19 16:00 101.3 102 20 134/89 (104) 96 11/23/19 16:00 106 Intake and Output 11/23/19 11/24/19 19:00 07:00 Intake Total 140 ml 600 ml Output Total 1200 ml 1450 ml Balance -1060 ml -850 ml Intake Oral 140 ml 600 ml Output Urine Total 1200 ml 1450 ml # Voids 3 Laboratory Tests 11/24/19 06:22: White Blood Count 6.9, Red Blood Count 2.98L, Hemoglobin 8.8L, Hematocrit 27.2L , Mean Corpuscular Volume 91, Mean Corpuscular Hemoglobin 29.6, Mean Corpuscular Hemoglobin Concent 32.5, Red Cell Distribution Width 15.5H, Platelet Count 197, Mean Platelet Volume 5.9L, Neutrophils (%) (Auto) 49.3, Lymphocytes (%) (Auto) 43.4, Monocytes (%) (Auto) 5.5, Eosinophils (%) (Auto) 0.7, Basophils (%) (Auto) 1.0, Sodium Level 134L, Potassium Level 3.9, Chloride Level 101, Carbon Dioxide Level 24, Anion Gap 9, Blood Urea Nitrogen 18, Creatinine 1.8H, Estimat Glomerular Filtration Rate 42.9, Glucose Level 88, Calcium Level 7.7L, Phosphorus Level 4.4, Magnesium Level 1.8, Total Bilirubin 0.9, Direct Bilirubin 0.5H, Aspartate Amino Transf (AST/SGOT) 45H, Alanine Aminotransferase (ALT/SGPT) 16, Alkaline Phosphatase 91, Lactate Dehydrogenase 467H, Total Protein 9.4H, Albumin 2.4L Height (Feet): 6 Height (Inches): 1.00 Weight (Pounds): 198 Sandy Dominguez M.D. Nov 24, 2019 14:33
--- NOTE | 2019-11-24 15:02 | Diagnostic Imaging Report ---
Clinical Indication: History of shortness of breath, abnormal chest radiograph Technique: Spiral acquisitions obtained through the chest. No IV contrast utilized, reason not stated. Multiplanar reconstructions generated. Total dose length product 195 mGycm. CTDIvol(s) 4 mGy. Dose reduction achieved using automated exposure control Comparison: No comparison CT scans. Comparison chest radiograph 11/23/2019 Findings: There are bilateral infiltrates consisting of a combination of groundglass and dense are irregular opacities. These are predominantly upper lobe and predominantly peripheral. There is some involvement of the lower lobes, predominantly with groundglass opacities but with also some areas of reticular and reticular nodular opacity. There are moderate-sized bilateral pleural effusions. There is some compressive atelectasis at both lung bases. There is a small anterior pericardial effusion. The heart size is normal. No mediastinal or hilar mass or adenopathy. The included thyroid is unremarkable. There is generalized mild edema of the subcutaneous fat. The included upper abdomen demonstrates hepatomegaly. The spleen is enlarged, incompletely included, measuring 14 cm long axis dimension. Impression: Bilateral moderate pleural effusions Edema of the subcutaneous fat, mild Bilateral infiltrates, with an upper lobe predominance. Most likely infectious in nature. Note, however, that given the presence of bilateral pleural fluid and edema of the subcutaneous fat, this could conceivably also represent pulmonary edema Small anterior wall pericardial effusion Hepatomegaly. Splenomegaly The CT scanner at [facility] is accredited by the [employer] and the scans are performed using protocols designed to limit radiation exposure to as low as reasonably achievable to attain images of sufficient resolution adequate for diagnostic evaluation.
--- NOTE | 2019-11-24 15:33 | General Progress Note ---
Assessment/Plan Problem List: (1) Anemia ICD Codes: D64.9 - Anemia, unspecified SNOMED: 793063221, [id number] Qualifiers: Qualified Codes: D64.9 - Anemia, unspecified (2) CHF exacerbation ICD Codes: I50.9 - Heart failure, unspecified SNOMED: 874320129, [id number] Qualifiers: Qualified Codes: I50.9 - Heart failure, unspecified Status: stable Assessment/Plan: Mr. Rollins is a 34 yo male with HIV, here with 2 days of cough, SOB, fever, and anemia. #Acute on chronic anemia #Epistaxsis - resolved -Has lost a lot of blood from recent E. coli enteritis. no more bleeding since. -s/p 2 u pRBC in the ED (11/20) with good response. -no transfusion unless Hgb <7. -CBC daily. -continue iron #SOB #Cough #Acute hypoxic respiratory failure #Sepsis #Fever #Suspected CAP -check COVID -> neg x2 -s/p ceftriaxone/doxy (11/20-11/21), dc/'ed after drug barfield -continue bactrim DS TID + levaquin (11/21 -) -Oxygen only for SpO2 <92%, d/w RN. So far satting high 80's, low 90's on room air. -appreciate ID consult. #Leg edema - improving -Continue IV Lasix BID -TTE with normal EF. Overloaded. #HIV -continue home HIV med (Biktarvy) -f/u HIV labs, still pending. -f/u outpatient. Time spent on encounter: 36 mins, 20 mins spent on counseling and coordination of care, d/w RN, consultants. Time of note doesn't reflect time of encounter. Subjective Date patient seen: Nov 24, 2019 ROS Limited/Unobtainable: No Constitutional: Reports: fever HEENT: Denies: no symptoms, eye pain, blurred vision, tearing, double vision, ear pain, ear discharge, nose pain, nose congestion, throat pain, throat swelling, mouth pain, mouth swelling, other Cardiovascular: Denies: no symptoms, chest pain, edema, irregular heart rate, lightheadedness, palpitations, syncope, other Respiratory: Reports: cough, shortness of breath Gastrointestinal/Abdominal: Denies: no symptoms, abdomen distended, abdominal pain, black stools, tarry stools, blood in stool, constipated, diarrhea, difficulty swallowing, nausea, poor appetite, poor fluid intake, rectal bleeding , vomiting, other Genitourinary: Denies: no symptoms, burning, discharge, frequency, flank pain, hematuria, incontinence, pain, urgency, other Neurologic/Psychiatric: Denies: no symptoms, anxiety, depressed, emotional problems, headache, numbness, paresthesia, pre-existing deficit, seizure, tingling, tremors, weakness, other Endocrine: Denies: no symptoms, excessive sweating, flushing, intolerance to cold, intolerance to heat, increased hunger, increased thirst, increased urine, unexplained weight gain, unexplained weight loss, other Hematologic/Lymphatic: Denies: no symptoms, anemia, easy bleeding, easy bruising, other Allergies: Coded Allergies: No Known Allergies (Unverified , 11/20/19) Subjective rash gone. still having SOB, mild cough, kaiden with lying flat. no bleeding. otherwise in good spirits, no other issues. Objective Last 24 Hour Vital Signs Date Time Temp Pulse Resp B/P (MAP) Pulse Ox O2 Delivery O2 Flow Rate FiO2 11/24/19 12:00 98 11/24/19 12:00 99.7 103 20 124/81 (95) 97 11/24/19 10:24 103 123/81 11/24/19 09:00 Room Air 2.0 11/24/19 08:00 97.9 103 20 123/81 (95) 98 11/24/19 08:00 107 11/24/19 04:00 99.4 98 19 138/87 (104) 91 11/24/19 04:00 108 11/24/19 00:00 100.1 97 20 135/95 (108) 91 11/24/19 00:00 93 11/23/19 21:00 Room Air 3.0 11/23/19 20:00 99.9 102 21 140/96 (111) 91 11/23/19 20:00 114 11/23/19 16:00 101.3 102 20 134/89 (104) 96 11/23/19 16:00 106 Intake and Output 11/23/19 11/24/19 19:00 07:00 Intake Total 140 ml 600 ml Output Total 1200 ml 1450 ml Balance -1060 ml -850 ml Intake Oral 140 ml 600 ml Output Urine Total 1200 ml 1450 ml # Voids 3 Laboratory Tests 11/24/19 06:22: White Blood Count 6.9, Red Blood Count 2.98L, Hemoglobin 8.8L, Hematocrit 27.2L , Mean Corpuscular Volume 91, Mean Corpuscular Hemoglobin 29.6, Mean Corpuscular Hemoglobin Concent 32.5, Red Cell Distribution Width 15.5H, Platelet Count 197, Mean Platelet Volume 5.9L, Neutrophils (%) (Auto) 49.3, Lymphocytes (%) (Auto) 43.4, Monocytes (%) (Auto) 5.5, Eosinophils (%) (Auto) 0.7, Basophils (%) (Auto) 1.0, Sodium Level 134L, Potassium Level 3.9, Chloride Level 101, Carbon Dioxide Level 24, Anion Gap 9, Blood Urea Nitrogen 18, Creatinine 1.8H, Estimat Glomerular Filtration Rate 42.9, Glucose Level 88, Calcium Level 7.7L, Phosphorus Level 4.4, Magnesium Level 1.8, Total Bilirubin 0.9, Direct Bilirubin 0.5H, Aspartate Amino Transf (AST/SGOT) 45H, Alanine Aminotransferase (ALT/SGPT) 16, Alkaline Phosphatase 91, Lactate Dehydrogenase 467H, Total Protein 9.4H, Albumin 2.4L Height (Feet): 6 Height (Inches): 1.00 Weight (Pounds): 198 General Appearance: no apparent distress, alert Neck: supple Cardiovascular: normal rate, regular rhythm Respiratory/Chest: lungs clear, normal breath sounds Abdomen: non tender, soft Neurologic: alert, oriented x 3 Kristopher Orta MD Nov 24, 2019 15:32
[2019-11-24 16:00] VITALS: BP 124/87
[2019-11-24 20:00] VITALS: BP 131/87
[2019-11-24] MEDS: Morphine Sulfate 2mg/ml Inj(IV/IM USE ONLY) IVP PRN (22:44)
[2019-11-25] VITALS: BP 118/76
[2019-11-25] MEDS: Bactrim 20ml in D5W 550ml IV SCH ×2 (00:08→08:49)
[2019-11-25 04:00] VITALS: BP 119/78
--- NOTE | 2019-11-25 07:01 | Pulmonology Progress Note ---
Subjective ROS Limited/Unobtainable: No Interval Events: COVID 19 negative Constitutional: Denies: fever HEENT: Repors: no symptoms Respiratory: Reports: shortness of breath Cardiovascular: Reports: no symptoms Gastrointestinal/Abdominal: Denies: nausea, vomiting, diarrhea Psychiatric: Denies: depression Skin: Denies: rash Musculoskeletal: Denies: pain Allergies: Coded Allergies: No Known Allergies (Unverified , 11/20/19) Objective Last 24 Hour Vital Signs Date Time Temp Pulse Resp B/P (MAP) Pulse Ox O2 Delivery O2 Flow Rate FiO2 11/25/19 04:00 89 11/25/19 04:00 99.5 94 21 119/78 (92) 91 11/25/19 00:48 100.5 11/25/19 00:00 99 11/25/19 00:00 100.9 111 22 118/76 (90) 91 11/24/19 21:00 Room Air 1.0 11/24/19 20:00 99.3 107 21 131/87 (102) 95 11/24/19 20:00 103 11/24/19 16:00 101 11/24/19 16:00 98.6 96 20 124/87 (99) 96 11/24/19 12:00 98 11/24/19 12:00 99.7 103 20 124/81 (95) 97 11/24/19 10:24 103 123/81 11/24/19 09:00 Room Air 2.0 11/24/19 08:00 97.9 103 20 123/81 (95) 98 11/24/19 08:00 107 Intake and Output 11/24/19 11/25/19 19:00 07:00 Intake Total 800 ml 1500 ml Output Total 1400 ml 1200 ml Balance -600 ml 300 ml Intake Oral 800 ml 1500 ml Output Urine Total 1400 ml 1200 ml # Voids 4 3 General Appearance: no acute distress HEENT: normocephalic Respiratory: chest wall non-tender, lungs clear Cardiovascular: normal peripheral pulses, normal rate Abdomen: normal bowel sounds Microbiology Date/Time Source Procedure Growth Status 11/24/19 14:30 Sputum Induced Gram Stain - Final Resulted 11/24/19 14:30 Sputum Induced Sputum Culture Pending Resulted Current Medications Medications (Trade) Dose Ordered Sig/Tiara Route PRN Reason Start Time Stop Time Status Last Admin Dose Admin Acetaminophen (Tylenol) 650 mg Q4H PRN ORAL Temp >100.5 11/21/19 12:00 12/21/19 11:59 11/25/19 00:18 Amlodipine Besylate (Norvasc) 5 mg DAILY ORAL 11/22/19 12:00 12/22/19 11:59 11/24/19 10:24 Ferrous Sulfate (Feosol) 325 mg THREE TIMES A DAY ORAL 11/21/19 13:00 02/19/20 12:59 11/24/19 18:15 Fluconazole (Diflucan) 200 mg DAILY ORAL 11/24/19 12:00 12/01/19 11:59 11/24/19 12:23 Furosemide (Lasix) 40 mg Q12H IV 11/24/19 18:00 12/24/19 17:59 11/25/19 06:07 Levofloxacin (Levaquin) 750 mg DAILY ORAL 11/23/19 09:00 11/30/19 08:59 11/24/19 10:24 Morphine Sulfate (Morphine Sulfate) 2 mg Q4H PRN IVP Moderate Pain (Pain Scale 4-6) 11/21/19 19:30 11/28/19 19:29 11/24/19 22:44 Morphine Sulfate (Morphine Sulfate) 4 mg Q4H PRN IVP Severe Pain (Pain Scale 7-10) 11/21/19 19:30 11/28/19 19:29 11/23/19 03:00 Ondansetron HCl (Zofran) 4 mg Q8HR PRN IVP Nausea & Vomiting 11/24/19 23:15 12/24/19 23:14 11/24/19 23:20 Patient Own Medication (Patient's Own Med) 1 ea DAILY ORAL 11/24/19 13:00 12/24/19 12:59 11/24/19 12:23 Trimethoprim/ Sulfamethoxazole 20 ml/Dextrose 570 ml @ 380 mls/hr [id number] BACTRIM IV 11/25/19 00:00 12/02/19 00:00 11/25/19 00:08 Assessment/Plan Assessment/Plan IMPRESSION: 1. Bilateral infiltrates, suspect pulmonary edema. 2. Ruled out for COVID-19. 3. Anemia 4. Renal dysfunction. DISCUSSION: Continue diuresis. I will follow carefully. Discussed with Cardiology and Nephrology. Will need workup for pulm HTN once euvolemic Consider bronchoscopy Will review chest CT Discussed with ID; still febrile Saturating better on low flow o2 Yas Yoder Omar Syed MD Nov 25, 2019 07:01
[2019-11-25 08:00] VITALS: BP 103/51
[2019-11-25] MEDS: Fluconazole 100mg tab ORAL SCH (08:47)
[2019-11-25] MEDS: Levofloxacin 750mg tab ORAL SCH (08:48)
[2019-11-25] MEDS: Patient's Own Med - BIKTARVY 50-200-25MG TAB ORAL SCH (08:49)
[2019-11-25 09:45] LABS: ANION GAP 10 mmol/L (5-15); BLOOD UREA NITROGEN 23 mg/dL (7-18); CALCIUM 7.8 MG/DL (8.5-10.1); CARBON DIOXIDE 24 MMOL/L (21-32); CHLORIDE 98 MMOL/L (98-107); CREATININE 2.1 MG/DL (0.55-1.30); PHOSPHORUS 5.3 MG/DL (2.5-4.9); POTASSIUM 3.9 MMOL/L (3.5-5.1); SODIUM 132 MMOL/L (136-145)
--- NOTE | 2019-11-25 11:09 | Internal Med Progress Note ---
Subjective Physician Name RejiSol Attending Physician Sandy Dominguez M.D. Current Medications Medications (Trade) Dose Ordered Sig/Tiara Route PRN Reason Start Time Stop Time Status Last Admin Dose Admin Acetaminophen (Tylenol) 650 mg Q4H PRN ORAL Temp >100.5 11/21/19 12:00 12/21/19 11:59 11/25/19 00:18 Amlodipine Besylate (Norvasc) 5 mg DAILY ORAL 11/22/19 12:00 12/22/19 11:59 11/24/19 10:24 Ferrous Sulfate (Feosol) 325 mg THREE TIMES A DAY ORAL 11/21/19 13:00 02/19/20 12:59 11/25/19 08:47 Fluconazole (Diflucan) 200 mg DAILY ORAL 11/24/19 12:00 12/01/19 11:59 11/25/19 08:47 Furosemide (Lasix) 40 mg Q12H IV 11/24/19 18:00 12/24/19 17:59 11/25/19 06:07 Levofloxacin (Levaquin) 750 mg DAILY ORAL 11/23/19 09:00 11/30/19 08:59 11/25/19 08:48 Morphine Sulfate (Morphine Sulfate) 2 mg Q4H PRN IVP Moderate Pain (Pain Scale 4-6) 11/21/19 19:30 11/28/19 19:29 11/24/19 22:44 Morphine Sulfate (Morphine Sulfate) 4 mg Q4H PRN IVP Severe Pain (Pain Scale 7-10) 11/21/19 19:30 11/28/19 19:29 11/23/19 03:00 Ondansetron HCl (Zofran) 4 mg Q8HR PRN IVP Nausea & Vomiting 11/24/19 23:15 12/24/19 23:14 11/24/19 23:20 Patient Own Medication (Patient's Own Med) 1 ea DAILY ORAL 11/24/19 13:00 12/24/19 12:59 11/25/19 08:49 Trimethoprim/ Sulfamethoxazole 20 ml/Dextrose 570 ml @ 380 mls/hr [id number] BACTRIM IV 11/25/19 00:00 12/02/19 00:00 11/25/19 08:49 Allergies: Coded Allergies: No Known Allergies (Unverified , 11/20/19) Objective Last Vital Signs Date Time Temp Pulse Resp B/P (MAP) Pulse Ox O2 Delivery O2 Flow Rate FiO2 11/25/19 08:56 Room Air 1.0 11/25/19 08:48 87 103/51 11/25/19 08:00 98.2 18 98 11/21/19 05:19 32 Laboratory Tests Test 11/25/19 07:55 Sodium Level 132 MMOL/L (136-145) L Potassium Level 3.9 MMOL/L (3.5-5.1) Chloride Level 98 MMOL/L (98-107) Carbon Dioxide Level 24 MMOL/L (21-32) Anion Gap 10 mmol/L (5-15) Blood Urea Nitrogen 23 mg/dL (7-18) H Creatinine 2.1 MG/DL (0.55-1.30) H Estimat Glomerular Filtration Rate 35.9 mL/min (>60) Glucose Level 83 MG/DL (74-106) Calcium Level 7.8 MG/DL (8.5-10.1) L Phosphorus Level 5.3 MG/DL (2.5-4.9) H Magnesium Level 1.9 MG/DL (1.8-2.4) Microbiology Date/Time Source Procedure Growth Status 11/24/19 14:30 Sputum Induced Gram Stain - Final Resulted 11/24/19 14:30 Sputum Induced Sputum Culture Pending Resulted Intake and Output 11/24/19 11/25/19 19:00 07:00 Intake Total 800 ml 1500 ml Output Total 1400 ml 1200 ml Balance -600 ml 300 ml Intake Oral 800 ml 1500 ml Output Urine Total 1400 ml 1200 ml # Voids 4 3 Assessment/Plan Assessment/Plan Assessment #CAP; in immunocompromised patient #Pulmonary Edema #HIV/AIDS #Hx of Enteritis #VERNA on CKD Sol Mendoza D.O. Nov 25, 2019 11:09
[2019-11-25 12:00] VITALS: BP 112/80
--- NOTE | 2019-11-25 14:01 | Cardiology Progress Note ---
Assessment/Plan Status: stable Status Narrative Assessment/Plan Problem List: (1) Anemia (2) CHF exacerbation (3) HIV (4) SOB (5) Pulmonary hypertension -s/p PRBC transfusion with improvement in symptoms -currently stable on oxygen, continue diuresis to lower PA pressures -Echocardiogram with severe PAH and TR - will need further work up -Serial CXR -Repeat TTE after aggressive diuresis, will need outpatient pulmonary hypertension work up -Mobilize Subjective Cardiovascular: Reports: no symptoms Respiratory: Reports: no symptoms Gastrointestinal/Abdominal: Reports: no symptoms Genitourinary: Reports: no symptoms Subjective No acute events, HgB stable , no bleeding TTE with severe PAH RVSP 77 and moderate TR, normal LV function Responding well to IV lasix, sob improving, still on oxygen but feels better Objective Last 24 Hour Vital Signs Date Time Temp Pulse Resp B/P (MAP) Pulse Ox O2 Delivery O2 Flow Rate FiO2 11/25/19 12:00 97.9 90 20 112/80 (91) 99 11/25/19 12:00 81 11/25/19 08:56 Room Air 1.0 11/25/19 08:48 87 103/51 11/25/19 08:00 98.2 87 18 103/51 (68) 98 11/25/19 08:00 89 11/25/19 04:00 89 11/25/19 04:00 99.5 94 21 119/78 (92) 91 11/25/19 00:48 100.5 11/25/19 00:00 99 11/25/19 00:00 100.9 111 22 118/76 (90) 91 11/24/19 21:00 Room Air 1.0 11/24/19 20:00 99.3 107 21 131/87 (102) 95 11/24/19 20:00 103 11/24/19 16:00 101 11/24/19 16:00 98.6 96 20 124/87 (99) 96 General Appearance: no apparent distress, alert EENT: PERRL/EOMI, normal ENT inspection, TMs normal, pharynx normal Neck: non-tender, normal alignment, supple Rhythm: NSR Cardiovascular: normal peripheral pulses, normal rate, regular rhythm Respiratory/Chest: chest wall non-tender, lungs clear, normal breath sounds Abdomen: normal bowel sounds, non tender, soft, no organomegaly Extremities: normal range of motion, non-tender, normal inspection, no calf tenderness, no swelling Neurologic: elderly sitter II-XII grossly normal, no motor/sensory deficits Intake and Output 11/24/19 11/25/19 19:00 07:00 Intake Total 800 ml 1500 ml Output Total 1400 ml 1200 ml Balance -600 ml 300 ml Intake Oral 800 ml 1500 ml Output Urine Total 1400 ml 1200 ml # Voids 4 3 Laboratory Tests Test 11/25/19 07:55 Sodium Level 132 MMOL/L (136-145) L Potassium Level 3.9 MMOL/L (3.5-5.1) Chloride Level 98 MMOL/L (98-107) Carbon Dioxide Level 24 MMOL/L (21-32) Anion Gap 10 mmol/L (5-15) Blood Urea Nitrogen 23 mg/dL (7-18) H Creatinine 2.1 MG/DL (0.55-1.30) H Estimat Glomerular Filtration Rate 35.9 mL/min (>60) Glucose Level 83 MG/DL (74-106) Calcium Level 7.8 MG/DL (8.5-10.1) L Phosphorus Level 5.3 MG/DL (2.5-4.9) H Magnesium Level 1.9 MG/DL (1.8-2.4) Microbiology Date/Time Source Procedure Growth Status 11/24/19 14:30 Sputum Induced Gram Stain - Final Resulted 11/24/19 14:30 Sputum Induced Sputum Culture Pending Resulted Dario Coto MD Nov 25, 2019 14:01
--- NOTE | 2019-11-25 15:36 | Infectious Diseases Prog Note ---
Assessment/Plan Assessment/Plan A) 1) ? pna, bilateral infiltrates, fevers, ? chf/edema, ? covid-19 virus infection , ? CAP, ? other viral pna, ? pneumocystis pna, elevated ldh, covid-19 testing negative, ? cryptococcus infection/pna 2) recent hospitalization for e.coli enteritis and sepsis 3) hiv - viral load - CD4-322, viral load pending 4) hx ARF and HD, cr worse today, on lasix 5) allergies - nkda, sh-neg, fh-nc, mar noted 6) d/w RN 7) rash improved off doxycycline and ceftriaxone P) 1) clindamycin plus primaquine to tx possible pneumocystis pna - day # 4 tx, on diflucan pending cryptococcus serum antigen 2) hold bactrim with elevated creatinine, discontinue levofloxacin with negative legionella and mycoplasma testing 3) covid-19 testing negative x 2 4) f/u on chest x-ray, labs, LDH, gallium scan, sputum testing - culture/ pneumocystis 5) f/u on viral load and cryptococcus antigen 6) biktarvy for HIV tx 7) d/w Dr. Zavala Subjective Constitutional: Reports: fatigue, other - less sob, fevers less ; Denies: fever HEENT: Denies: congestion Respiratory: Denies: shortness of breath Cardiovascular: Reports: chest pain Gastrointestinal/Abdominal: Reports: vomiting; Denies: nausea Neurologic: Denies: weakness Psychiatric: Denies: depression Skin: Reports: rash Hematologic: Denies: bleeding Allergies: Coded Allergies: No Known Allergies (Unverified , 11/20/19) Objective Vital Signs Last 24 Hour Vital Signs Date Time Temp Pulse Resp B/P (MAP) Pulse Ox O2 Delivery O2 Flow Rate FiO2 11/25/19 12:00 97.9 90 20 112/80 (91) 99 11/25/19 12:00 81 11/25/19 08:56 Room Air 1.0 11/25/19 08:48 87 103/51 11/25/19 08:00 98.2 87 18 103/51 (68) 98 11/25/19 08:00 89 11/25/19 04:00 89 11/25/19 04:00 99.5 94 21 119/78 (92) 91 11/25/19 00:48 100.5 11/25/19 00:00 99 11/25/19 00:00 100.9 111 22 118/76 (90) 91 11/24/19 21:00 Room Air 1.0 11/24/19 20:00 99.3 107 21 131/87 (102) 95 11/24/19 20:00 103 11/24/19 16:00 101 11/24/19 16:00 98.6 96 20 124/87 (99) 96 Height (Feet): 6 Height (Inches): 1.00 Weight (Pounds): 198 General Appearance: no acute distress HEENT: normocephalic, atraumatic, anicteric, mucous membranes moist Respiratory/Chest: no accessory muscle use, crackles/rales, rhonchi - bilaterally Cardiovascular: normal rate, regular rhythm, no gallop/murmur, no JVD Abdomen: normal bowel sounds, soft, non tender, no organomegaly, non distended Genitourinary: other - no kelly Extremities: no cyanosis Skin: no rash Neurologic/Psychiatric: 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 Heart size is upper limits of normal. There is suggestion of trace pleural fluid bilaterally. Findings are unchanged Impression: Unchanged, over 3 days, findings as above. CT Chest: Impression: Bilateral moderate pleural effusions Edema of the subcutaneous fat, mild Bilateral infiltrates, with an upper lobe predominance. Most likely infectious in nature. Note, however, that given the presence of bilateral pleural fluid and edema of the subcutaneous fat, this could conceivably also represent pulmonary edema Microbiology Date/Time Source Procedure Growth Status 11/24/19 14:30 Sputum Induced Gram Stain - Final Resulted 11/24/19 14:30 Sputum Induced Sputum Culture Pending Resulted Labs Test 11/23/19 07:50 11/24/19 06:22 11/25/19 07:55 White Blood Count 7.1 K/UL (4.8-10.8) 6.9 K/UL (4.8-10.8) Red Blood Count 2.61 M/UL (4.70-6.10) 2.98 M/UL (4.70-6.10) Hemoglobin 7.7 G/DL (14.2-18.0) 8.8 G/DL (14.2-18.0) Hematocrit 22.2 % (42.0-52.0) 27.2 % (42.0-52.0) Mean Corpuscular Volume 85 FL (80-99) 91 FL (80-99) Mean Corpuscular Hemoglobin 29.3 PG (27.0-31.0) 29.6 PG (27.0-31.0) Mean Corpuscular Hemoglobin Concent 34.5 G/DL (32.0-36.0) 32.5 G/DL (32.0-36.0) Red Cell Distribution Width 16.2 % (11.6-14.8) 15.5 % (11.6-14.8) Platelet Count 199 K/UL (150-450) 197 K/UL (150-450) Mean Platelet Volume 4.8 FL (6.5-10.1) 5.9 FL (6.5-10.1) Neutrophils (%) (Auto) % (45.0-75.0) 49.3 % (45.0-75.0) Lymphocytes (%) (Auto) % (20.0-45.0) 43.4 % (20.0-45.0) Monocytes (%) (Auto) % (1.0-10.0) 5.5 % (1.0-10.0) Eosinophils (%) (Auto) % (0.0-3.0) 0.7 % (0.0-3.0) Basophils (%) (Auto) % (0.0-2.0) 1.0 % (0.0-2.0) Differential Total Cells Counted 100 Neutrophils % (Manual) 55 % (45-75) Lymphocytes % (Manual) 35 % (20-45) Monocytes % (Manual) 7 % (1-10) Eosinophils % (Manual) 2 % (0-3) Basophils % (Manual) 1 % (0-2) Band Neutrophils 0 % (0-8) Platelet Estimate Adequate Platelet Morphology Normal Hypochromasia 3+ Anisocytosis 1+ Spherocytes 2+ Sodium Level 136 MMOL/L (136-145) 134 MMOL/L (136-145) 132 MMOL/L (136-145) Potassium Level 3.7 MMOL/L (3.5-5.1) 3.9 MMOL/L (3.5-5.1) 3.9 MMOL/L (3.5-5.1) Chloride Level 104 MMOL/L (98-107) 101 MMOL/L (98-107) 98 MMOL/L (98-107) Carbon Dioxide Level 22 MMOL/L (21-32) 24 MMOL/L (21-32) 24 MMOL/L (21-32) Anion Gap 10 mmol/L (5-15) 9 mmol/L (5-15) 10 mmol/L (5-15) Blood Urea Nitrogen 16 mg/dL (7-18) 18 mg/dL (7-18) 23 mg/dL (7-18) Creatinine 1.4 MG/DL (0.55-1.30) 1.8 MG/DL (0.55-1.30) 2.1 MG/DL (0.55-1.30) Estimat Glomerular Filtration Rate 57.3 mL/min (>60) 42.9 mL/min (>60) 35.9 mL/min (>60) Glucose Level 85 MG/DL (74-106) 88 MG/DL (74-106) 83 MG/DL (74-106) Calcium Level 7.4 MG/DL (8.5-10.1) 7.7 MG/DL (8.5-10.1) 7.8 MG/DL (8.5-10.1) Phosphorus Level 3.9 MG/DL (2.5-4.9) 4.4 MG/DL (2.5-4.9) 5.3 MG/DL (2.5-4.9) Magnesium Level 1.8 MG/DL (1.8-2.4) 1.8 MG/DL (1.8-2.4) 1.9 MG/DL (1.8-2.4) Total Bilirubin 0.9 MG/DL (0.2-1.0) Direct Bilirubin 0.5 MG/DL (0.0-0.3) Aspartate Amino Transf (AST/SGOT) 45 U/L (15-37) Alanine Aminotransferase (ALT/SGPT) 16 U/L (12-78) Alkaline Phosphatase 91 U/L (46-116) Lactate Dehydrogenase 467 U/L (81-234) Total Protein 9.4 G/DL (6.4-8.2) Albumin 2.4 G/DL (3.4-5.0) Laboratory Tests Test 11/25/19 07:55 Sodium Level 132 MMOL/L (136-145) L Potassium Level 3.9 MMOL/L (3.5-5.1) Chloride Level 98 MMOL/L (98-107) Carbon Dioxide Level 24 MMOL/L (21-32) Anion Gap 10 mmol/L (5-15) Blood Urea Nitrogen 23 mg/dL (7-18) H Creatinine 2.1 MG/DL (0.55-1.30) H Estimat Glomerular Filtration Rate 35.9 mL/min (>60) Glucose Level 83 MG/DL (74-106) Calcium Level 7.8 MG/DL (8.5-10.1) L Phosphorus Level 5.3 MG/DL (2.5-4.9) H Magnesium Level 1.9 MG/DL (1.8-2.4) Current Medications Medications (Trade) Dose Ordered Sig/Tiara Route PRN Reason Start Time Stop Time Status Last Admin Dose Admin Acetaminophen (Tylenol) 650 mg Q4H PRN ORAL Temp >100.5 11/21/19 12:00 12/21/19 11:59 11/25/19 00:18 Amlodipine Besylate (Norvasc) 5 mg DAILY ORAL 11/22/19 12:00 12/22/19 11:59 11/24/19 10:24 Clindamycin Phosphate/Dextrose 50 ml @ 100 mls/hr Q8HR IV 11/26/19 06:00 12/03/19 05:59 Clindamycin/ Sodium Chloride 50 ml @ 100 mls/hr Q8HR IV 11/25/19 15:00 11/25/19 23:59 Ferrous Sulfate (Feosol) 325 mg THREE TIMES A DAY ORAL 11/21/19 13:00 02/19/20 12:59 11/25/19 13:26 Fluconazole (Diflucan) 200 mg DAILY ORAL 11/24/19 12:00 12/01/19 11:59 11/25/19 08:47 Furosemide (Lasix) 40 mg Q12H IV 11/24/19 18:00 12/24/19 17:59 11/25/19 06:07 Morphine Sulfate (Morphine Sulfate) 2 mg Q4H PRN IVP Moderate Pain (Pain Scale 4-6) 11/21/19 19:30 11/28/19 19:29 11/24/19 22:44 Morphine Sulfate (Morphine Sulfate) 4 mg Q4H PRN IVP Severe Pain (Pain Scale 7-10) 11/21/19 19:30 11/28/19 19:29 11/23/19 03:00 Ondansetron HCl (Zofran) 4 mg Q8HR PRN IVP Nausea & Vomiting 11/24/19 23:15 12/24/19 23:14 11/24/19 23:20 Patient Own Medication (Patient's Own Med) 1 ea DAILY ORAL 11/24/19 13:00 12/24/19 12:59 11/25/19 08:49 Primaquine Phosphate (Primaquine) 26.3 mg DAILY ORAL 11/26/19 09:00 12/26/19 08:59 Sevelamer Carbonate (Renvela) 800 mg TID ORAL 11/25/19 13:00 02/23/20 12:59 11/25/19 13:26 Leeroy Orellana MD Nov 25, 2019 15:36
[2019-11-25] MEDS: NS IV SCH ×2 (15:53→21:35)
[2019-11-25] MEDS: CLINDAMYCIN IV SCH ×2 (15:53→21:35)
[2019-11-25 16:00] VITALS: BP 125/82
--- NOTE | 2019-11-25 16:50 | Internal Med Progress Note ---
Subjective Date of Service: Nov 25, 2019 Physician Name RejiDeonteSol Attending Physician Sandy Dominguez M.D. Current Medications Medications (Trade) Dose Ordered Sig/Tiara Route PRN Reason Start Time Stop Time Status Last Admin Dose Admin Acetaminophen (Tylenol) 650 mg Q4H PRN ORAL Temp >100.5 11/21/19 12:00 12/21/19 11:59 11/25/19 00:18 Amlodipine Besylate (Norvasc) 5 mg DAILY ORAL 11/22/19 12:00 12/22/19 11:59 11/24/19 10:24 Clindamycin Phosphate/Dextrose 50 ml @ 100 mls/hr Q8HR IV 11/26/19 06:00 12/03/19 05:59 Clindamycin/ Sodium Chloride 50 ml @ 100 mls/hr Q8HR IV 11/25/19 15:00 11/25/19 23:59 11/25/19 15:53 Ferrous Sulfate (Feosol) 325 mg THREE TIMES A DAY ORAL 11/21/19 13:00 02/19/20 12:59 11/25/19 13:26 Fluconazole (Diflucan) 200 mg DAILY ORAL 11/24/19 12:00 12/01/19 11:59 11/25/19 08:47 Furosemide (Lasix) 40 mg Q12H IV 11/24/19 18:00 12/24/19 17:59 11/25/19 06:07 Morphine Sulfate (Morphine Sulfate) 2 mg Q4H PRN IVP Moderate Pain (Pain Scale 4-6) 11/21/19 19:30 11/28/19 19:29 11/24/19 22:44 Morphine Sulfate (Morphine Sulfate) 4 mg Q4H PRN IVP Severe Pain (Pain Scale 7-10) 11/21/19 19:30 11/28/19 19:29 11/23/19 03:00 Ondansetron HCl (Zofran) 4 mg Q8HR PRN IVP Nausea & Vomiting 11/24/19 23:15 12/24/19 23:14 11/24/19 23:20 Patient Own Medication (Patient's Own Med) 1 ea DAILY ORAL 11/24/19 13:00 12/24/19 12:59 11/25/19 08:49 Primaquine Phosphate (Primaquine) 26.3 mg DAILY ORAL 11/26/19 09:00 12/26/19 08:59 Sevelamer Carbonate (Renvela) 800 mg TID ORAL 11/25/19 13:00 02/23/20 12:59 11/25/19 13:26 Allergies: Coded Allergies: No Known Allergies (Unverified , 11/20/19) Subjective Patient visited at bedside; states he feels like he is breathing much better. Appreciate consultants. Vitals stable. 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 grossly normal Laboratory Tests Test 11/25/19 07:55 Sodium Level 132 MMOL/L (136-145) L Potassium Level 3.9 MMOL/L (3.5-5.1) Chloride Level 98 MMOL/L (98-107) Carbon Dioxide Level 24 MMOL/L (21-32) Anion Gap 10 mmol/L (5-15) Blood Urea Nitrogen 23 mg/dL (7-18) H Creatinine 2.1 MG/DL (0.55-1.30) H Estimat Glomerular Filtration Rate 35.9 mL/min (>60) Glucose Level 83 MG/DL (74-106) Calcium Level 7.8 MG/DL (8.5-10.1) L Phosphorus Level 5.3 MG/DL (2.5-4.9) H Magnesium Level 1.9 MG/DL (1.8-2.4) Microbiology Date/Time Source Procedure Growth Status 11/24/19 14:30 Sputum Induced Gram Stain - Final Resulted 11/24/19 14:30 Sputum Induced Sputum Culture Pending Resulted Intake and Output 11/24/19 11/25/19 19:00 07:00 Intake Total 800 ml 1500 ml Output Total 1400 ml 1200 ml Balance -600 ml 300 ml Intake Oral 800 ml 1500 ml Output Urine Total 1400 ml 1200 ml # Voids 4 3 Assessment/Plan Assessment/Plan Assessment #CAP; in immunocompromised patient--> DDx CAP vs COVID vs Viral vs Immunocompromise Defining Infection ( PCP vs Cryptococcus) #BL moderate pleural effusion as viewed on CT chest #HIV/AIDS--> CD4 322, viral load pending #VERNA on CKD , hx of HD #Rash Plan Appreciate Consultants. F/U with ID/Pulm if patient would benefit from a diagnostic/therapeutic thoracentesis given effusion viewedd Continue Clindamcyin + Primaquine for possible PCP; also on Fluconazole for possible Fungal Infx. Continue Lasix IV BID. Bactrim is being held 2/2 renal function [facility] for HIV DVT ppx Diet Sol Mendoza D.O. Nov 25, 2019 16:49
[2019-11-25 20:00] VITALS: BP 128/86
--- NOTE | 2019-11-25 20:19 | Nephrology Progress Note ---
Assessment/Plan Plan #recent ATN due to HUs? HD depenedent resolved - cr stablized #SOB r/o covid #recent ecoli enteritis #HIV #anemia - Decrease lasix to 40 IV daily - replete mag and K - monitor cr closely - echo with elevated PA pessures - r/o covid - monitor bmp, mag and phos - avoid nephrotoxins - pulm eval - ID eval - on cefepime and levaquin - 2d echo reviewed - transfuse prbc prn - monitor hemoglobin Subjective ROS Limited/Unobtainable: No Constitutional: Denies: no symptoms, chills, diaphoresis, fever, malaise, weakness, other HEENT: Denies: no symptoms, eye pain, blurred vision, tearing, double vision, ear pain, ear discharge, nose pain, nose congestion, throat pain, throat swelling, mouth pain, mouth swelling, other Genitourinary: Denies: no symptoms, burning, discharge, frequency, flank pain, hematuria, incontinence, pain, urgency, other Neurologic/Psychiatric: Denies: no symptoms, anxiety, depressed, emotional problems, headache, numbness, paresthesia, pre-existing deficit, seizure, tingling, tremors, weakness, other Subjective Cr uptrending K low repleted echo with elevated PA pressures continues to have low grade temps Objective Objective Last 24 Hour Vital Signs Date Time Temp Pulse Resp B/P (MAP) Pulse Ox O2 Delivery O2 Flow Rate FiO2 11/25/19 16:00 97.5 86 18 125/82 (96) 98 11/25/19 16:00 82 11/25/19 12:00 97.9 90 20 112/80 (91) 99 11/25/19 12:00 81 11/25/19 08:56 Room Air 1.0 11/25/19 08:48 87 103/51 11/25/19 08:00 98.2 87 18 103/51 (68) 98 11/25/19 08:00 89 11/25/19 04:00 89 11/25/19 04:00 99.5 94 21 119/78 (92) 91 11/25/19 00:48 100.5 11/25/19 00:00 99 11/25/19 00:00 100.9 111 22 118/76 (90) 91 11/24/19 21:00 Room Air 1.0 Intake and Output 11/24/19 11/25/19 19:00 07:00 Intake Total 800 ml 1500 ml Output Total 1400 ml 1200 ml Balance -600 ml 300 ml Intake Oral 800 ml 1500 ml Output Urine Total 1400 ml 1200 ml # Voids 4 3 Laboratory Tests 11/25/19 07:55: Sodium Level 132L, Potassium Level 3.9, Chloride Level 98, Carbon Dioxide Level 24, Anion Gap 10, Blood Urea Nitrogen 23H, Creatinine 2.1H, Estimat Glomerular Filtration Rate 35.9, Glucose Level 83, Calcium Level 7.8L, Phosphorus Level 5.3H, Magnesium Level 1.9 Height (Feet): 6 Height (Inches): 1.00 Weight (Pounds): 198 Sandy Dominguez M.D. Nov 25, 2019 20:19
[2019-11-26] VITALS: BP 125/83
[2019-11-26 04:00] VITALS: BP 115/80
[2019-11-26] MEDS ORDERED: Clindamycin 900mg 50 ML IV SCH (06:00)
[2019-11-26 08:00] VITALS: BP 126/83
[2019-11-26 09:24] LABS: HEMATOCRIT 24.1 % (42.0-52.0); HEMOGLOBIN 7.4 G/DL (14.2-18.0); MEAN CORPUSCULAR VOLUME 94 FL (80-99); PLATELET COUNT 186 K/UL (150-450); RED BLOOD COUNT 2.57 M/UL (4.70-6.10); RED CELL DISTRIBUTION WIDTH 17.1 % (11.6-14.8); WHITE BLOOD COUNT 5.5 K/UL (4.8-10.8)
[2019-11-26 09:40] LABS: ALANINE AMINOTRANSFERASE 36 U/L (12-78); ALBUMIN 2.6 G/DL (3.4-5.0); ALBUMIN/GLOBULIN RATIO 0.4 (1.0-2.7); ALKALINE PHOSPHATASE 78 U/L (46-116); ANION GAP 9 mmol/L (5-15); ASPARTATE AMINO TRANSFERASE 61 U/L (15-37); BILIRUBIN,TOTAL 0.7 MG/DL (0.2-1.0); BLOOD UREA NITROGEN 28 mg/dL (7-18); CALCIUM 7.8 MG/DL (8.5-10.1); CARBON DIOXIDE 24 MMOL/L (21-32); CHLORIDE 101 MMOL/L (98-107); CREATININE 1.9 MG/DL (0.55-1.30); PHOSPHORUS 4.5 MG/DL (2.5-4.9); POTASSIUM 4.1 MMOL/L (3.5-5.1); SODIUM 134 MMOL/L (136-145)
[2019-11-26] MEDS: Primaquine 26.3mg(=15mg base) Tab ORAL SCH (09:50)
[2019-11-26] MEDS: Patient's Own Med - BIKTARVY 50-200-25MG TAB ORAL SCH (09:50)
[2019-11-26] MEDS: Fluconazole 100mg tab ORAL SCH (09:51)
--- NOTE | 2019-11-26 10:13 | Nephrology Progress Note ---
Assessment/Plan Plan #recent ATN due to HUs? HD depenedent resolved - cr stablized #SOB r/o covid #recent ecoli enteritis #HIV #anemia - Decrease lasix to 40 IV daily - replete mag and K - monitor cr closely - echo with elevated PA pessures - r/o covid - monitor bmp, mag and phos - avoid nephrotoxins - pulm eval - ID eval - on cefepime and levaquin - 2d echo reviewed - transfuse prbc prn - monitor hemoglobin Subjective Subjective Cr uptrending K low repleted echo with elevated PA pressures continues to have low grade temps Objective Objective Last 24 Hour Vital Signs Date Time Temp Pulse Resp B/P (MAP) Pulse Ox O2 Delivery O2 Flow Rate FiO2 11/26/19 09:50 92 126/83 11/26/19 09:00 Room Air 11/26/19 08:00 97.9 92 18 126/83 (97) 96 11/26/19 04:00 98.7 92 19 115/80 (92) 93 11/26/19 00:00 99.1 95 21 125/83 (97) 94 11/25/19 21:00 Room Air 11/25/19 20:00 98.8 91 20 128/86 (100) 92 11/25/19 16:00 97.5 86 18 125/82 (96) 98 11/25/19 16:00 82 11/25/19 12:00 97.9 90 20 112/80 (91) 99 11/25/19 12:00 81 Intake and Output 11/25/19 11/26/19 19:00 07:00 Intake Total 360 ml 1000 ml Output Total 1000 ml 920 ml Balance -640 ml 80 ml Intake Oral 360 ml 1000 ml Output Urine Total 1000 ml 920 ml Laboratory Tests 11/26/19 08:27: White Blood Count 5.5, Red Blood Count 2.57L, Hemoglobin 7.4L, Hematocrit 24.1L , Mean Corpuscular Volume 94, Mean Corpuscular Hemoglobin 28.9, Mean Corpuscular Hemoglobin Concent 30.7L, Red Cell Distribution Width 17.1H, Platelet Count 186, Mean Platelet Volume 5.4L, Neutrophils (%) (Auto) , Lymphocytes (%) (Auto) , Monocytes (%) (Auto) , Eosinophils (%) (Auto) , Basophils (%) (Auto) , Neutrophils % (Manual) [Pending], Lymphocytes % (Manual) [Pending], Platelet Estimate [Pending], Platelet Morphology [Pending], Sodium Level 134L, Potassium Level 4.1, Chloride Level 101, Carbon Dioxide Level 24, Anion Gap 9, Blood Urea Nitrogen 28H, Creatinine 1.9H, Estimat Glomerular Filtration Rate 40.3, Glucose Level 105, Calcium Level 7.8L, Phosphorus Level 4.5, Magnesium Level 1.9, Total Bilirubin 0.7, Aspartate Amino Transf (AST/SGOT ) 61H, Alanine Aminotransferase (ALT/SGPT) 36, Alkaline Phosphatase 78, Total Protein 9.2H, Albumin 2.6L, Globulin 6.6, Albumin/Globulin Ratio 0.4L Height (Feet): 6 Height (Inches): 1.00 Weight (Pounds): 198 Sandy Dominguez M.D. Nov 26, 2019 10:12
[2019-11-26 12:00] VITALS: BP 131/87
--- NOTE | 2019-11-26 12:35 | Pulmonology Progress Note ---
Subjective ROS Limited/Unobtainable: No Interval Events: COVID 19 negative Constitutional: Denies: fever HEENT: Repors: no symptoms Respiratory: Reports: shortness of breath Cardiovascular: Reports: no symptoms Gastrointestinal/Abdominal: Denies: nausea, vomiting, diarrhea Psychiatric: Denies: depression Skin: Denies: rash Musculoskeletal: Denies: pain Allergies: Coded Allergies: No Known Allergies (Unverified , 11/20/19) Objective Last 24 Hour Vital Signs Date Time Temp Pulse Resp B/P (MAP) Pulse Ox O2 Delivery O2 Flow Rate FiO2 11/26/19 09:50 92 126/83 11/26/19 09:00 Room Air 11/26/19 08:00 97.9 92 18 126/83 (97) 96 11/26/19 04:00 98.7 92 19 115/80 (92) 93 11/26/19 00:00 99.1 95 21 125/83 (97) 94 11/25/19 21:00 Room Air 11/25/19 20:00 98.8 91 20 128/86 (100) 92 11/25/19 16:00 97.5 86 18 125/82 (96) 98 11/25/19 16:00 82 Intake and Output 11/25/19 11/26/19 19:00 07:00 Intake Total 360 ml 1000 ml Output Total 1000 ml 920 ml Balance -640 ml 80 ml Intake Oral 360 ml 1000 ml Output Urine Total 1000 ml 920 ml General Appearance: no acute distress HEENT: normocephalic Respiratory: chest wall non-tender, lungs clear Cardiovascular: normal peripheral pulses, normal rate Abdomen: normal bowel sounds Microbiology Date/Time Source Procedure Growth Status 11/24/19 14:30 Sputum Induced Gram Stain - Final Resulted 11/24/19 14:30 Sputum Induced Sputum Culture Pending Resulted Laboratory Tests 11/26/19 08:27: White Blood Count 5.5, Red Blood Count 2.57L, Hemoglobin 7.4L, Hematocrit 24.1L , Mean Corpuscular Volume 94, Mean Corpuscular Hemoglobin 28.9, Mean Corpuscular Hemoglobin Concent 30.7L, Red Cell Distribution Width 17.1H, Platelet Count 186, Mean Platelet Volume 5.4L, Neutrophils (%) (Auto) , Lymphocytes (%) (Auto) , Monocytes (%) (Auto) , Eosinophils (%) (Auto) , Basophils (%) (Auto) , Differential Total Cells Counted 100, Neutrophils % ( Manual) 50, Lymphocytes % (Manual) 41, Monocytes % (Manual) 9, Eosinophils % ( Manual) 0, Basophils % (Manual) 0, Band Neutrophils 0, Platelet Estimate Adequate, Platelet Morphology Normal, Hypochromasia 1+, Anisocytosis 1+, Sodium Level 134L, Potassium Level 4.1, Chloride Level 101, Carbon Dioxide Level 24, Anion Gap 9, Blood Urea Nitrogen 28H, Creatinine 1.9H, Estimat Glomerular Filtration Rate 40.3, Glucose Level 105, Calcium Level 7.8L, Phosphorus Level 4.5, Magnesium Level 1.9, Total Bilirubin 0.7, Aspartate Amino Transf (AST/SGOT ) 61H, Alanine Aminotransferase (ALT/SGPT) 36, Alkaline Phosphatase 78, Total Protein 9.2H, Albumin 2.6L, Globulin 6.6, Albumin/Globulin Ratio 0.4L Current Medications Medications (Trade) Dose Ordered Sig/Tiara Route PRN Reason Start Time Stop Time Status Last Admin Dose Admin Acetaminophen (Tylenol) 650 mg Q4H PRN ORAL Temp >100.5 11/21/19 12:00 12/21/19 11:59 11/25/19 00:18 Amlodipine Besylate (Norvasc) 5 mg DAILY ORAL 11/22/19 12:00 12/22/19 11:59 11/26/19 09:50 Ferrous Sulfate (Feosol) 325 mg THREE TIMES A DAY ORAL 11/21/19 13:00 02/19/20 12:59 11/26/19 09:50 Fluconazole (Diflucan) 200 mg DAILY ORAL 11/24/19 12:00 12/01/19 11:59 11/26/19 09:51 Furosemide (Lasix) 40 mg DAILY IV 11/26/19 09:00 12/24/19 17:59 11/26/19 09:50 Morphine Sulfate (Morphine Sulfate) 2 mg Q4H PRN IVP Moderate Pain (Pain Scale 4-6) 11/21/19 19:30 11/28/19 19:29 11/24/19 22:44 Morphine Sulfate (Morphine Sulfate) 4 mg Q4H PRN IVP Severe Pain (Pain Scale 7-10) 11/21/19 19:30 11/28/19 19:29 11/23/19 03:00 Ondansetron HCl (Zofran) 4 mg Q8HR PRN IVP Nausea & Vomiting 11/24/19 23:15 12/24/19 23:14 11/24/19 23:20 Patient Own Medication (Patient's Own Med) 1 ea DAILY ORAL 11/24/19 13:00 12/24/19 12:59 11/26/19 09:50 Primaquine Phosphate (Primaquine) 26.3 mg DAILY ORAL 11/26/19 09:00 12/26/19 08:59 11/26/19 09:50 Sevelamer Carbonate (Renvela) 800 mg TID ORAL 11/25/19 13:00 02/23/20 12:59 11/26/19 09:50 Assessment/Plan Assessment/Plan IMPRESSION: 1. Bilateral infiltrates, reviewed chest CT 2. Ruled out for COVID-19. 3. Anemia 4. Renal dysfunction. 5. HIV DISCUSSION: I will follow carefully. Discussed with Cardiology and Nephrology. Will need workup for pulm HTN once euvolemic Consider bronchoscopy; will discuss with ID; cannot biopsy due to severe pulm HTN Reviewed chest CT Discussed with ID; still febrile Saturating better on low flow o2 vs RA Lorenzo Zavala M.D. Lroenzo Zavala MD Nov 26, 2019 12:35
--- NOTE | 2019-11-26 13:04 | Internal Med Progress Note ---
Subjective Date of Service: Nov 26, 2019 Physician Name Sol Mendoza Attending Physician Sandy Dominguez M.D. Current Medications Medications (Trade) Dose Ordered Sig/Tiara Route PRN Reason Start Time Stop Time Status Last Admin Dose Admin Acetaminophen (Tylenol) 650 mg Q4H PRN ORAL Temp >100.5 11/21/19 12:00 12/21/19 11:59 11/25/19 00:18 Amlodipine Besylate (Norvasc) 5 mg DAILY ORAL 11/22/19 12:00 12/22/19 11:59 11/26/19 09:50 Ferrous Sulfate (Feosol) 325 mg THREE TIMES A DAY ORAL 11/21/19 13:00 02/19/20 12:59 11/26/19 09:50 Fluconazole (Diflucan) 200 mg DAILY ORAL 11/24/19 12:00 12/01/19 11:59 11/26/19 09:51 Furosemide (Lasix) 40 mg DAILY IV 11/26/19 09:00 12/24/19 17:59 11/26/19 09:50 Morphine Sulfate (Morphine Sulfate) 2 mg Q4H PRN IVP Moderate Pain (Pain Scale 4-6) 11/21/19 19:30 11/28/19 19:29 11/24/19 22:44 Morphine Sulfate (Morphine Sulfate) 4 mg Q4H PRN IVP Severe Pain (Pain Scale 7-10) 11/21/19 19:30 11/28/19 19:29 11/23/19 03:00 Ondansetron HCl (Zofran) 4 mg Q8HR PRN IVP Nausea & Vomiting 11/24/19 23:15 12/24/19 23:14 11/24/19 23:20 Patient Own Medication (Patient's Own Med) 1 ea DAILY ORAL 11/24/19 13:00 12/24/19 12:59 11/26/19 09:50 Primaquine Phosphate (Primaquine) 26.3 mg DAILY ORAL 11/26/19 09:00 12/26/19 08:59 11/26/19 09:50 Sevelamer Carbonate (Renvela) 800 mg TID ORAL 11/25/19 13:00 02/23/20 12:59 11/26/19 09:50 Allergies: Coded Allergies: No Known Allergies (Unverified , 11/20/19) Subjective Patient visited at bedside; saturating well w/o 02. BL LE edema is improving. He is currently on Primaquine and Fluconazole. Appreciate medical team. Will f/ u with pulm to see if a thoracentesis is indicated regarding BL effusions. Note that patient does have severe PAH on echo w/ cardio planning on repeating echo after diuresis. 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 Skin: warm/dry Laboratory Tests Test 11/26/19 08:27 White Blood Count 5.5 K/UL (4.8-10.8) Red Blood Count 2.57 M/UL (4.70-6.10) L Hemoglobin 7.4 G/DL (14.2-18.0) L Hematocrit 24.1 % (42.0-52.0) L Mean Corpuscular Volume 94 FL (80-99) Mean Corpuscular Hemoglobin 28.9 PG (27.0-31.0) Mean Corpuscular Hemoglobin Concent 30.7 G/DL (32.0-36.0) L Red Cell Distribution Width 17.1 % (11.6-14.8) H Platelet Count 186 K/UL (150-450) Mean Platelet Volume 5.4 FL (6.5-10.1) L Neutrophils (%) (Auto) % (45.0-75.0) Lymphocytes (%) (Auto) % (20.0-45.0) Monocytes (%) (Auto) % (1.0-10.0) Eosinophils (%) (Auto) % (0.0-3.0) Basophils (%) (Auto) % (0.0-2.0) Differential Total Cells Counted 100 Neutrophils % (Manual) 50 % (45-75) Lymphocytes % (Manual) 41 % (20-45) Monocytes % (Manual) 9 % (1-10) Eosinophils % (Manual) 0 % (0-3) Basophils % (Manual) 0 % (0-2) Band Neutrophils 0 % (0-8) Platelet Estimate Adequate Platelet Morphology Normal Hypochromasia 1+ Anisocytosis 1+ Sodium Level 134 MMOL/L (136-145) L Potassium Level 4.1 MMOL/L (3.5-5.1) Chloride Level 101 MMOL/L (98-107) Carbon Dioxide Level 24 MMOL/L (21-32) Anion Gap 9 mmol/L (5-15) Blood Urea Nitrogen 28 mg/dL (7-18) H Creatinine 1.9 MG/DL (0.55-1.30) H Estimat Glomerular Filtration Rate 40.3 mL/min (>60) Glucose Level 105 MG/DL (74-106) Calcium Level 7.8 MG/DL (8.5-10.1) L Phosphorus Level 4.5 MG/DL (2.5-4.9) Magnesium Level 1.9 MG/DL (1.8-2.4) Total Bilirubin 0.7 MG/DL (0.2-1.0) Aspartate Amino Transf (AST/SGOT) 61 U/L (15-37) H Alanine Aminotransferase (ALT/SGPT) 36 U/L (12-78) Alkaline Phosphatase 78 U/L (46-116) Total Protein 9.2 G/DL (6.4-8.2) H Albumin 2.6 G/DL (3.4-5.0) L Globulin 6.6 g/dL Albumin/Globulin Ratio 0.4 (1.0-2.7) L Coccidioides Antibody (Comp Fix) Pending Microbiology Date/Time Source Procedure Growth Status 11/24/19 14:30 Sputum Induced Gram Stain - Final Resulted 11/24/19 14:30 Sputum Induced Sputum Culture Pending Resulted Intake and Output 11/25/19 11/26/19 19:00 07:00 Intake Total 360 ml 1000 ml Output Total 1000 ml 920 ml Balance -640 ml 80 ml Intake Oral 360 ml 1000 ml Output Urine Total 1000 ml 920 ml Assessment/Plan Assessment/Plan Assessment #CAP; in immunocompromised patient--> DDx CAP vs COVID vs Viral vs Immunocompromise Defining Infection ( PCP vs Cryptococcus) #BL moderate pleural effusion as viewed on CT chest #Diastolic Heart Dysfunction w/ severe PAH #Blood Transfusion Requiring Anemia w/ recent hx of severe Enteritis #HIV/AIDS--> CD4 322, viral load pending #VERNA on CKD , hx of HD, currently creatinine improving #Rash Plan [facility]. F/U with ID/Pulm if patient would benefit from a diagnostic/therapeutic thoracentesis given effusion viewedd Continue Primaquine for possible PCP; also on Fluconazole for possible Fungal Infx. ( S/P Clindamcycin, Cxs negative) Continue Lasix IV Qday, monitor renal function Monitor HGB, transfuse for less than 7 or if hemodynamically unstable Bactrim is being held 2/2 renal function Bitkarvy for HIV DVT ppx, GI ppx Diet 11/25: Continue AB per ID. F/U with pulm if patient should have thoracentesis. Regarding HGB, will obtain SOBT and ensure GI ppx. Sol Mendoza D.O. Nov 26, 2019 13:04
[2019-11-26] MEDS: Pantoprazole Inj IVP SCH (13:19)
[2019-11-26 16:00] VITALS: BP 114/76
[2019-11-26] MEDS ORDERED: Tubing IV Secondary IV ONE (17:55)
[2019-11-26] MEDS ORDERED: NS 275ml ONE (17:55)
[2019-11-26 20:00] VITALS: BP 122/79
--- NOTE | 2019-11-26 20:52 | Cardiology Progress Note ---
Assessment/Plan Status: stable Status Narrative Assessment/Plan Problem List: (1) Anemia (2) CHF exacerbation (3) HIV (4) SOB (5) Pulmonary hypertension -s/p PRBC transfusion with improvement in symptoms -currently stable on oxygen, continue diuresis to lower PA pressures - lasix transitioned to once a day -Echocardiogram with severe PAH and TR - will need further work up -Serial CXR -Repeat TTE after aggressive diuresis, will need outpatient pulmonary hypertension work up -Mobilize -Clear to proceed with bronchoscopy Subjective Cardiovascular: Reports: no symptoms Respiratory: Reports: no symptoms Gastrointestinal/Abdominal: Reports: no symptoms Genitourinary: Reports: no symptoms Subjective No acute events, HgB stable , no bleeding TTE with severe PAH RVSP 77 and moderate TR, normal LV function Responding well to IV lasix, sob improving, still on oxygen but feels better HgB 7.4 today Plan for bronch this week, repeat TTE pending Objective Last 24 Hour Vital Signs Date Time Temp Pulse Resp B/P (MAP) Pulse Ox O2 Delivery O2 Flow Rate FiO2 11/26/19 16:00 99.5 90 18 114/76 (89) 96 11/26/19 12:00 99.7 89 20 131/87 (102) 97 11/26/19 09:50 92 126/83 11/26/19 09:00 Room Air 11/26/19 08:00 97.9 92 18 126/83 (97) 96 11/26/19 04:00 98.7 92 19 115/80 (92) 93 11/26/19 00:00 99.1 95 21 125/83 (97) 94 11/25/19 21:00 Room Air General Appearance: no apparent distress, alert EENT: PERRL/EOMI, normal ENT inspection, TMs normal, pharynx normal Neck: non-tender, normal alignment, supple, normal inspection, no JVD Rhythm: NSR Cardiovascular: normal peripheral pulses Respiratory/Chest: accessory muscle use, crackles/rales, rhonchi - bilaterally Abdomen: non tender, no organomegaly Extremities: normal range of motion, non-tender 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, no motor/sensory deficits Intake and Output 11/25/19 11/26/19 19:00 07:00 Intake Total 360 ml 1000 ml Output Total 1000 ml 920 ml Balance -640 ml 80 ml Intake Oral 360 ml 1000 ml Output Urine Total 1000 ml 920 ml Laboratory Tests Test 11/26/19 08:27 11/26/19 15:15 11/26/19 17:50 White Blood Count 5.5 K/UL (4.8-10.8) Red Blood Count 2.57 M/UL (4.70-6.10) L Hemoglobin 7.4 G/DL (14.2-18.0) L Hematocrit 24.1 % (42.0-52.0) L Mean Corpuscular Volume 94 FL (80-99) Mean Corpuscular Hemoglobin 28.9 PG (27.0-31.0) Mean Corpuscular Hemoglobin Concent 30.7 G/DL (32.0-36.0) L Red Cell Distribution Width 17.1 % (11.6-14.8) H Platelet Count 186 K/UL (150-450) Mean Platelet Volume 5.4 FL (6.5-10.1) L Neutrophils (%) (Auto) % (45.0-75.0) Lymphocytes (%) (Auto) % (20.0-45.0) Monocytes (%) (Auto) % (1.0-10.0) Eosinophils (%) (Auto) % (0.0-3.0) Basophils (%) (Auto) % (0.0-2.0) Differential Total Cells Counted 100 Neutrophils % (Manual) 50 % (45-75) Lymphocytes % (Manual) 41 % (20-45) Monocytes % (Manual) 9 % (1-10) Eosinophils % (Manual) 0 % (0-3) Basophils % (Manual) 0 % (0-2) Band Neutrophils 0 % (0-8) Platelet Estimate Adequate Platelet Morphology Normal Hypochromasia 1+ Anisocytosis 1+ Sodium Level 134 MMOL/L (136-145) L Potassium Level 4.1 MMOL/L (3.5-5.1) Chloride Level 101 MMOL/L (98-107) Carbon Dioxide Level 24 MMOL/L (21-32) Anion Gap 9 mmol/L (5-15) Blood Urea Nitrogen 28 mg/dL (7-18) H Creatinine 1.9 MG/DL (0.55-1.30) H Estimat Glomerular Filtration Rate 40.3 mL/min (>60) Glucose Level 105 MG/DL (74-106) Calcium Level 7.8 MG/DL (8.5-10.1) L Phosphorus Level 4.5 MG/DL (2.5-4.9) Magnesium Level 1.9 MG/DL (1.8-2.4) Total Bilirubin 0.7 MG/DL (0.2-1.0) Aspartate Amino Transf (AST/SGOT) 61 U/L (15-37) H Alanine Aminotransferase (ALT/SGPT) 36 U/L (12-78) Alkaline Phosphatase 78 U/L (46-116) Total Protein 9.2 G/DL (6.4-8.2) H Albumin 2.6 G/DL (3.4-5.0) L Globulin 6.6 g/dL Albumin/Globulin Ratio 0.4 (1.0-2.7) L Coccidioides Antibody (Comp Fix) Pending Cryptococcus Antigen Pending Stool Occult Blood Pending Microbiology Date/Time Source Procedure Growth Status 11/24/19 14:30 Sputum Induced Gram Stain - Final Resulted 11/24/19 14:30 Sputum Induced Sputum Culture Pending Resulted Dario Coto MD Nov 26, 2019 20:52
[2019-11-27] VITALS: BP 127/86
[2019-11-27 04:00] VITALS: BP 133/90
[2019-11-27 07:37] LABS: HEMATOCRIT 25.1 % (42.0-52.0); HEMOGLOBIN 7.7 G/DL (14.2-18.0); MEAN CORPUSCULAR VOLUME 96 FL (80-99); PLATELET COUNT 180 K/UL (150-450); RED BLOOD COUNT 2.62 M/UL (4.70-6.10); RED CELL DISTRIBUTION WIDTH 15.9 % (11.6-14.8); WHITE BLOOD COUNT 4.9 K/UL (4.8-10.8)
[2019-11-27 08:00] VITALS: BP 136/93
[2019-11-27 08:00] LABS: ALANINE AMINOTRANSFERASE 32 U/L (12-78); ALBUMIN 2.5 G/DL (3.4-5.0); ALBUMIN/GLOBULIN RATIO 0.4 (1.0-2.7); ALKALINE PHOSPHATASE 77 U/L (46-116); ANION GAP 7 mmol/L (5-15); ASPARTATE AMINO TRANSFERASE 60 U/L (15-37); BILIRUBIN,TOTAL 0.9 MG/DL (0.2-1.0); BLOOD UREA NITROGEN 23 mg/dL (7-18); CALCIUM 8.3 MG/DL (8.5-10.1); CARBON DIOXIDE 25 MMOL/L (21-32); CHLORIDE 105 MMOL/L (98-107); CREATININE 1.7 MG/DL (0.55-1.30); PHOSPHORUS 4.2 MG/DL (2.5-4.9); POTASSIUM 4.2 MMOL/L (3.5-5.1); SODIUM 137 MMOL/L (136-145)
[2019-11-27] MEDS: Pantoprazole Inj IVP SCH (09:23)
[2019-11-27] MEDS: Patient's Own Med - BIKTARVY 50-200-25MG TAB ORAL SCH (09:23)
[2019-11-27] MEDS: Primaquine 26.3mg(=15mg base) Tab ORAL SCH (09:23)
[2019-11-27] MEDS: Fluconazole 100mg tab ORAL SCH (09:23)
--- NOTE | 2019-11-27 10:29 | Nephrology Progress Note ---
Assessment/Plan Plan #recent ATN due to HUs? HD depenedent resolved - cr stablized #SOB r/o covid #recent ecoli enteritis #HIV #anemia - switch to lasix 40 PO daily - consideration of bronch - replete mag and K - monitor cr closely - echo with elevated PA pessures - r/o covid - monitor bmp, mag and phos - avoid nephrotoxins - pulm eval - ID eval - on cefepime and levaquin - 2d echo reviewed - transfuse prbc prn - monitor hemoglobin Subjective ROS Limited/Unobtainable: No Constitutional: Denies: no symptoms, chills, diaphoresis, fever, malaise, weakness, other HEENT: Denies: no symptoms, eye pain, blurred vision, tearing, double vision, ear pain, ear discharge, nose pain, nose congestion, throat pain, throat swelling, mouth pain, mouth swelling, other Genitourinary: Denies: no symptoms, burning, discharge, frequency, flank pain, hematuria, incontinence, pain, urgency, other Neurologic/Psychiatric: Denies: no symptoms, anxiety, depressed, emotional problems, headache, numbness, paresthesia, pre-existing deficit, seizure, tingling, tremors, weakness, other Subjective Cr uptrending K low repleted echo with elevated PA pressures continues to have low grade temps Objective Objective Last 24 Hour Vital Signs Date Time Temp Pulse Resp B/P (MAP) Pulse Ox O2 Delivery O2 Flow Rate FiO2 11/27/19 09:24 88 136/93 11/27/19 08:00 99.1 88 20 136/93 (107) 98 11/27/19 04:00 99.9 93 20 133/90 (104) 97 11/27/19 00:00 98.6 77 16 127/86 (100) 96 11/26/19 21:00 Room Air 11/26/19 20:38 99.5 11/26/19 20:00 100.6 94 20 122/79 (93) 93 11/26/19 16:00 99.5 90 18 114/76 (89) 96 11/26/19 12:00 99.7 89 20 131/87 (102) 97 Intake and Output 11/26/19 11/27/19 19:00 07:00 Intake Total 720 ml 400 ml Output Total 1450 ml 700 ml Balance -730 ml -300 ml Intake Oral 720 ml 400 ml Output Urine Total 1450 ml 700 ml # Voids 3 # Bowel Movements 1 Laboratory Tests 11/26/19 15:15: Cryptococcus Antigen [Pending] 11/26/19 17:50: Stool Occult Blood [Pending] 11/27/19 06:45: White Blood Count 4.9, Red Blood Count 2.62L, Hemoglobin 7.7L, Hematocrit 25.1L , Mean Corpuscular Volume 96, Mean Corpuscular Hemoglobin 29.4, Mean Corpuscular Hemoglobin Concent 30.7L, Red Cell Distribution Width 15.9H, Platelet Count 180, Mean Platelet Volume 5.6L, Neutrophils (%) (Auto) , Lymphocytes (%) (Auto) , Monocytes (%) (Auto) , Eosinophils (%) (Auto) , Basophils (%) (Auto) , Differential Total Cells Counted 100, Neutrophils % ( Manual) 48, Lymphocytes % (Manual) 39, Monocytes % (Manual) 7, Eosinophils % ( Manual) 6H, Basophils % (Manual) 0, Band Neutrophils 0, Platelet Estimate Adequate, Platelet Morphology Normal, Hypochromasia 1+, Anisocytosis 1+, Sodium Level 137, Potassium Level 4.2, Chloride Level 105, Carbon Dioxide Level 25, Anion Gap 7, Blood Urea Nitrogen 23H, Creatinine 1.7H, Estimat Glomerular Filtration Rate 45.8, Glucose Level 87, Calcium Level 8.3L, Phosphorus Level 4.2 , Magnesium Level 2.1, Total Bilirubin 0.9, Aspartate Amino Transf (AST/SGOT) 60H, Alanine Aminotransferase (ALT/SGPT) 32, Alkaline Phosphatase 77, Lactate Dehydrogenase 352H, Total Protein 9.6H, Albumin 2.5L, Globulin 7.1, Albumin/ Globulin Ratio 0.4L Height (Feet): 6 Height (Inches): 1.00 Weight (Pounds): 198 Sandy Dominguez M.D. Nov 27, 2019 10:29
--- NOTE | 2019-11-27 10:49 | Pulmonology Progress Note ---
Subjective ROS Limited/Unobtainable: No Interval Events: COVID 19 negative Constitutional: Denies: fever HEENT: Repors: no symptoms Respiratory: Reports: shortness of breath Cardiovascular: Reports: no symptoms Gastrointestinal/Abdominal: Denies: nausea, vomiting, diarrhea Psychiatric: Denies: depression Skin: Denies: rash Musculoskeletal: Denies: pain Allergies: Coded Allergies: No Known Allergies (Unverified , 11/20/19) Objective Last 24 Hour Vital Signs Date Time Temp Pulse Resp B/P (MAP) Pulse Ox O2 Delivery O2 Flow Rate FiO2 11/27/19 09:24 88 136/93 11/27/19 08:00 99.1 88 20 136/93 (107) 98 11/27/19 04:00 99.9 93 20 133/90 (104) 97 11/27/19 00:00 98.6 77 16 127/86 (100) 96 11/26/19 21:00 Room Air 11/26/19 20:38 99.5 11/26/19 20:00 100.6 94 20 122/79 (93) 93 11/26/19 16:00 99.5 90 18 114/76 (89) 96 11/26/19 12:00 99.7 89 20 131/87 (102) 97 Intake and Output 11/26/19 11/27/19 19:00 07:00 Intake Total 720 ml 400 ml Output Total 1450 ml 700 ml Balance -730 ml -300 ml Intake Oral 720 ml 400 ml Output Urine Total 1450 ml 700 ml # Voids 3 # Bowel Movements 1 General Appearance: no acute distress HEENT: normocephalic Respiratory: chest wall non-tender, lungs clear Cardiovascular: normal peripheral pulses, normal rate Abdomen: normal bowel sounds Microbiology Date/Time Source Procedure Growth Status 11/24/19 14:30 Sputum Induced Gram Stain - Final Resulted 11/24/19 14:30 Sputum Culture - Preliminary Gram Negative Bacillus 1 Usual Respiratory Leonora Resulted Laboratory Tests 11/26/19 15:15: Cryptococcus Antigen [Pending] 11/26/19 17:50: Stool Occult Blood [Pending] 11/27/19 06:45: White Blood Count 4.9, Red Blood Count 2.62L, Hemoglobin 7.7L, Hematocrit 25.1L , Mean Corpuscular Volume 96, Mean Corpuscular Hemoglobin 29.4, Mean Corpuscular Hemoglobin Concent 30.7L, Red Cell Distribution Width 15.9H, Platelet Count 180, Mean Platelet Volume 5.6L, Neutrophils (%) (Auto) , Lymphocytes (%) (Auto) , Monocytes (%) (Auto) , Eosinophils (%) (Auto) , Basophils (%) (Auto) , Differential Total Cells Counted 100, Neutrophils % ( Manual) 48, Lymphocytes % (Manual) 39, Monocytes % (Manual) 7, Eosinophils % ( Manual) 6H, Basophils % (Manual) 0, Band Neutrophils 0, Platelet Estimate Adequate, Platelet Morphology Normal, Hypochromasia 1+, Anisocytosis 1+, Sodium Level 137, Potassium Level 4.2, Chloride Level 105, Carbon Dioxide Level 25, Anion Gap 7, Blood Urea Nitrogen 23H, Creatinine 1.7H, Estimat Glomerular Filtration Rate 45.8, Glucose Level 87, Calcium Level 8.3L, Phosphorus Level 4.2 , Magnesium Level 2.1, Total Bilirubin 0.9, Aspartate Amino Transf (AST/SGOT) 60H, Alanine Aminotransferase (ALT/SGPT) 32, Alkaline Phosphatase 77, Lactate Dehydrogenase 352H, Total Protein 9.6H, Albumin 2.5L, Globulin 7.1, Albumin/ Globulin Ratio 0.4L Current Medications Medications (Trade) Dose Ordered Sig/Tiara Route PRN Reason Start Time Stop Time Status Last Admin Dose Admin Acetaminophen (Tylenol) 650 mg Q4H PRN ORAL Temp >100.5 11/21/19 12:00 12/21/19 11:59 11/26/19 20:08 Amlodipine Besylate (Norvasc) 5 mg DAILY ORAL 11/22/19 12:00 12/22/19 11:59 11/27/19 09:24 Ferrous Sulfate (Feosol) 325 mg THREE TIMES A DAY ORAL 11/21/19 13:00 02/19/20 12:59 11/27/19 09:23 Fluconazole (Diflucan) 200 mg DAILY ORAL 11/24/19 12:00 12/01/19 11:59 11/27/19 09:23 Furosemide (Lasix) 40 mg DAILY ORAL 11/28/19 09:00 12/28/19 08:59 Morphine Sulfate (Morphine Sulfate) 2 mg Q4H PRN IVP Moderate Pain (Pain Scale 4-6) 11/21/19 19:30 11/28/19 19:29 11/24/19 22:44 Morphine Sulfate (Morphine Sulfate) 4 mg Q4H PRN IVP Severe Pain (Pain Scale 7-10) 11/21/19 19:30 11/28/19 19:29 11/23/19 03:00 Ondansetron HCl (Zofran) 4 mg Q8HR PRN IVP Nausea & Vomiting 11/24/19 23:15 12/24/19 23:14 11/24/19 23:20 Pantoprazole (Protonix) 40 mg DAILY IVP 11/26/19 13:15 12/26/19 13:14 11/27/19 09:23 Patient Own Medication (Patient's Own Med) 1 ea DAILY ORAL 11/24/19 13:00 12/24/19 12:59 11/27/19 09:23 Primaquine Phosphate (Primaquine) 26.3 mg DAILY ORAL 11/26/19 09:00 12/26/19 08:59 11/27/19 09:23 Sevelamer Carbonate (Renvela) 800 mg TID ORAL 11/25/19 13:00 02/23/20 12:59 11/27/19 09:23 Assessment/Plan Assessment/Plan IMPRESSION: 1. Bilateral infiltrates, reviewed chest CT 2. Ruled out for COVID-19. 3. Anemia 4. Renal dysfunction. 5. HIV DISCUSSION: I will follow carefully. Discussed with Cardiology and Nephrology. Will need workup for pulm HTN once euvolemic; PaO2 pressures decreased after diuresis Consider bronchoscopy; will discuss with ID; cannot biopsy due to severe pulm HTN Reviewed chest CT Discussed with ID; still febrile Saturating well on RA Yas Yoder Omar Syed MD Nov 27, 2019 10:49
--- NOTE | 2019-11-27 11:01 | Internal Med Progress Note ---
Subjective Date of Service: Nov 27, 2019 Physician Name Sol Mendoza Attending Physician Sandy Domignuez M.D. Current Medications Medications (Trade) Dose Ordered Sig/Tiara Route PRN Reason Start Time Stop Time Status Last Admin Dose Admin Acetaminophen (Tylenol) 650 mg Q4H PRN ORAL Temp >100.5 11/21/19 12:00 12/21/19 11:59 11/26/19 20:08 Amlodipine Besylate (Norvasc) 5 mg DAILY ORAL 11/22/19 12:00 12/22/19 11:59 11/27/19 09:24 Ferrous Sulfate (Feosol) 325 mg THREE TIMES A DAY ORAL 11/21/19 13:00 02/19/20 12:59 11/27/19 09:23 Fluconazole (Diflucan) 200 mg DAILY ORAL 11/24/19 12:00 12/01/19 11:59 11/27/19 09:23 Furosemide (Lasix) 40 mg DAILY ORAL 11/28/19 09:00 12/28/19 08:59 Morphine Sulfate (Morphine Sulfate) 2 mg Q4H PRN IVP Moderate Pain (Pain Scale 4-6) 11/21/19 19:30 11/28/19 19:29 11/24/19 22:44 Morphine Sulfate (Morphine Sulfate) 4 mg Q4H PRN IVP Severe Pain (Pain Scale 7-10) 11/21/19 19:30 11/28/19 19:29 11/23/19 03:00 Ondansetron HCl (Zofran) 4 mg Q8HR PRN IVP Nausea & Vomiting 11/24/19 23:15 12/24/19 23:14 11/24/19 23:20 Pantoprazole (Protonix) 40 mg DAILY IVP 11/26/19 13:15 12/26/19 13:14 11/27/19 09:23 Patient Own Medication (Patient's Own Med) 1 ea DAILY ORAL 11/24/19 13:00 12/24/19 12:59 11/27/19 09:23 Primaquine Phosphate (Primaquine) 26.3 mg DAILY ORAL 11/26/19 09:00 12/26/19 08:59 11/27/19 09:23 Sevelamer Carbonate (Renvela) 800 mg TID ORAL 11/25/19 13:00 02/23/20 12:59 11/27/19 09:23 Allergies: Coded Allergies: No Known Allergies (Unverified , 11/20/19) Subjective He is breathing better and he is saturating well on room air. Lasix is now been changed to 40 mg p.o. daily. He remains on primaquine and fluconazole. Regarding CT chest, patient may require a bronch moving forward per pulm , his O2 saturation is overall improving with diuresis, so does not appear to have immediate indication for thoracentesis. Objective Last Vital Signs Date Time Temp Pulse Resp B/P (MAP) Pulse Ox O2 Delivery O2 Flow Rate FiO2 11/27/19 09:24 88 136/93 11/27/19 09:00 Room Air 11/27/19 08:00 99.1 20 98 11/25/19 08:56 1.0 11/21/19 05:19 32 Laboratory Tests Test 11/26/19 15:15 11/26/19 17:50 11/27/19 06:45 Cryptococcus Antigen Pending Stool Occult Blood Pending White Blood Count 4.9 K/UL (4.8-10.8) Red Blood Count 2.62 M/UL (4.70-6.10) L Hemoglobin 7.7 G/DL (14.2-18.0) L Hematocrit 25.1 % (42.0-52.0) L Mean Corpuscular Volume 96 FL (80-99) Mean Corpuscular Hemoglobin 29.4 PG (27.0-31.0) Mean Corpuscular Hemoglobin Concent 30.7 G/DL (32.0-36.0) L Red Cell Distribution Width 15.9 % (11.6-14.8) H Platelet Count 180 K/UL (150-450) Mean Platelet Volume 5.6 FL (6.5-10.1) L Neutrophils (%) (Auto) % (45.0-75.0) Lymphocytes (%) (Auto) % (20.0-45.0) Monocytes (%) (Auto) % (1.0-10.0) Eosinophils (%) (Auto) % (0.0-3.0) Basophils (%) (Auto) % (0.0-2.0) Differential Total Cells Counted 100 Neutrophils % (Manual) 48 % (45-75) Lymphocytes % (Manual) 39 % (20-45) Monocytes % (Manual) 7 % (1-10) Eosinophils % (Manual) 6 % (0-3) H Basophils % (Manual) 0 % (0-2) Band Neutrophils 0 % (0-8) Platelet Estimate Adequate Platelet Morphology Normal Hypochromasia 1+ Anisocytosis 1+ Sodium Level 137 MMOL/L (136-145) Potassium Level 4.2 MMOL/L (3.5-5.1) Chloride Level 105 MMOL/L (98-107) Carbon Dioxide Level 25 MMOL/L (21-32) Anion Gap 7 mmol/L (5-15) Blood Urea Nitrogen 23 mg/dL (7-18) H Creatinine 1.7 MG/DL (0.55-1.30) H Estimat Glomerular Filtration Rate 45.8 mL/min (>60) Glucose Level 87 MG/DL (74-106) Calcium Level 8.3 MG/DL (8.5-10.1) L Phosphorus Level 4.2 MG/DL (2.5-4.9) Magnesium Level 2.1 MG/DL (1.8-2.4) Total Bilirubin 0.9 MG/DL (0.2-1.0) Aspartate Amino Transf (AST/SGOT) 60 U/L (15-37) H Alanine Aminotransferase (ALT/SGPT) 32 U/L (12-78) Alkaline Phosphatase 77 U/L (46-116) Lactate Dehydrogenase 352 U/L (81-234) H Total Protein 9.6 G/DL (6.4-8.2) H Albumin 2.5 G/DL (3.4-5.0) L Globulin 7.1 g/dL Albumin/Globulin Ratio 0.4 (1.0-2.7) L Microbiology Date/Time Source Procedure Growth Status 11/24/19 14:30 Sputum Induced Gram Stain - Final Resulted 11/24/19 14:30 Sputum Culture - Preliminary Gram Negative Bacillus 1 Usual Respiratory Leonora Resulted Intake and Output 11/26/19 11/27/19 19:00 07:00 Intake Total 720 ml 400 ml Output Total 1450 ml 700 ml Balance -730 ml -300 ml Intake Oral 720 ml 400 ml Output Urine Total 1450 ml 700 ml # Voids 3 # Bowel Movements 1 Assessment/Plan Assessment/Plan Assessment #CAP; in immunocompromised patient--> DDx CAP vs Viral vs Immunocompromise Defining Infection ( PCP vs Cryptococcus) #BL moderate pleural effusion as viewed on CT chest--> no immediate indication for Thora #Diastolic Heart Dysfunction w/ severe PAH #Blood Transfusion Requiring Anemia w/ recent hx of severe Enteritis #HIV/AIDS--> CD4 322, viral load pending #VERNA on CKD , hx of HD, currently creatinine improving #Rash Plan [facility] Consult[facility]. F/U with ID/Pulm if patient would benefit will benefit from Bronch Continue Primaquine for possible PCP; also on Fluconazole for possible Fungal Infx. ( S/P Clindamcycin, Cxs negative) S/P Lasix 40 IV, now Lasix PO , monitor renal function Monitor HGB, transfuse for less than 7 or if hemodynamically unstable, pending SOBT Bactrim is being held 2/2 renal function Bitkarvy for HIV DVT ppx, GI ppx Diet 11/25: Continue AB per ID. F/U with pulm if patient should have thoracentesis. Regarding HGB, will obtain SOBT and ensure GI ppx. 11/26: Lasix has now been changed to 40 po qday; f/u with pulm regarding bronch . HGB stable, still pending SOBT Sol Mendoza D.O. Nov 27, 2019 11:01
[2019-11-27 12:00] VITALS: BP 138/92
--- NOTE | 2019-11-27 12:03 | Cardiology Progress Note ---
Assessment/Plan Status: stable Status Narrative Assessment/Plan Problem List: (1) Anemia (2) CHF exacerbation (3) HIV (4) SOB (5) Pulmonary hypertension -s/p PRBC transfusion with improvement in symptoms -currently stable on room air, continue diuresis to lower PA pressures - lasix transitioned to once a day -> transition to oral 40 mg daily maintenance -Echocardiogram with severe PAH and TR - will need further work up -Serial CXR -Repeat TTE with improved PA pressures to 50s -[employer] Dispo planning Subjective Cardiovascular: Reports: no symptoms Respiratory: Reports: no symptoms Gastrointestinal/Abdominal: Reports: no symptoms Genitourinary: Reports: no symptoms Subjective No acute events, HgB stable , no bleeding TTE with severe PAH RVSP 77 and moderate TR, normal LV function Patient reports feeling better, hes on room air He does not want bromch PA pressures down to %50s Objective Last 24 Hour Vital Signs Date Time Temp Pulse Resp B/P (MAP) Pulse Ox O2 Delivery O2 Flow Rate FiO2 11/27/19 09:24 88 136/93 11/27/19 09:00 Room Air 11/27/19 08:00 99.1 88 20 136/93 (107) 98 11/27/19 04:00 99.9 93 20 133/90 (104) 97 11/27/19 00:00 98.6 77 16 127/86 (100) 96 11/26/19 21:00 Room Air 11/26/19 20:38 99.5 11/26/19 20:00 100.6 94 20 122/79 (93) 93 11/26/19 16:00 99.5 90 18 114/76 (89) 96 General Appearance: no apparent distress, alert EENT: PERRL/EOMI, normal ENT inspection, TMs normal Neck: non-tender, normal alignment, normal inspection Rhythm: NSR Cardiovascular: normal peripheral pulses, normal rate, regular rhythm, no gallop/murmur Respiratory/Chest: chest wall non-tender, normal breath sounds Abdomen: normal bowel sounds Extremities: normal inspection Neurologic: offline cutter II-XII grossly normal, abnormal gait Intake and Output 11/26/19 11/27/19 19:00 07:00 Intake Total 720 ml 400 ml Output Total 1450 ml 700 ml Balance -730 ml -300 ml Intake Oral 720 ml 400 ml Output Urine Total 1450 ml 700 ml # Voids 3 # Bowel Movements 1 Laboratory Tests Test 11/26/19 15:15 11/26/19 17:50 11/27/19 06:45 Cryptococcus Antigen Pending Stool Occult Blood Negative (NEGATIVE) White Blood Count 4.9 K/UL (4.8-10.8) Red Blood Count 2.62 M/UL (4.70-6.10) L Hemoglobin 7.7 G/DL (14.2-18.0) L Hematocrit 25.1 % (42.0-52.0) L Mean Corpuscular Volume 96 FL (80-99) Mean Corpuscular Hemoglobin 29.4 PG (27.0-31.0) Mean Corpuscular Hemoglobin Concent 30.7 G/DL (32.0-36.0) L Red Cell Distribution Width 15.9 % (11.6-14.8) H Platelet Count 180 K/UL (150-450) Mean Platelet Volume 5.6 FL (6.5-10.1) L Neutrophils (%) (Auto) % (45.0-75.0) Lymphocytes (%) (Auto) % (20.0-45.0) Monocytes (%) (Auto) % (1.0-10.0) Eosinophils (%) (Auto) % (0.0-3.0) Basophils (%) (Auto) % (0.0-2.0) Differential Total Cells Counted 100 Neutrophils % (Manual) 48 % (45-75) Lymphocytes % (Manual) 39 % (20-45) Monocytes % (Manual) 7 % (1-10) Eosinophils % (Manual) 6 % (0-3) H Basophils % (Manual) 0 % (0-2) Band Neutrophils 0 % (0-8) Platelet Estimate Adequate Platelet Morphology Normal Hypochromasia 1+ Anisocytosis 1+ Sodium Level 137 MMOL/L (136-145) Potassium Level 4.2 MMOL/L (3.5-5.1) Chloride Level 105 MMOL/L (98-107) Carbon Dioxide Level 25 MMOL/L (21-32) Anion Gap 7 mmol/L (5-15) Blood Urea Nitrogen 23 mg/dL (7-18) H Creatinine 1.7 MG/DL (0.55-1.30) H Estimat Glomerular Filtration Rate 45.8 mL/min (>60) Glucose Level 87 MG/DL (74-106) Calcium Level 8.3 MG/DL (8.5-10.1) L Phosphorus Level 4.2 MG/DL (2.5-4.9) Magnesium Level 2.1 MG/DL (1.8-2.4) Total Bilirubin 0.9 MG/DL (0.2-1.0) Aspartate Amino Transf (AST/SGOT) 60 U/L (15-37) H Alanine Aminotransferase (ALT/SGPT) 32 U/L (12-78) Alkaline Phosphatase 77 U/L (46-116) Lactate Dehydrogenase 352 U/L (81-234) H Total Protein 9.6 G/DL (6.4-8.2) H Albumin 2.5 G/DL (3.4-5.0) L Globulin 7.1 g/dL Albumin/Globulin Ratio 0.4 (1.0-2.7) L Microbiology Date/Time Source Procedure Growth Status 11/24/19 14:30 Sputum Induced Gram Stain - Final Resulted 11/24/19 14:30 Sputum Culture - Preliminary Gram Negative Bacillus 1 Usual Respiratory Leonora Resulted Dario Coto MD Nov 27, 2019 12:03
[2019-11-27] MEDS ORDERED: Morphine Sulfate 4mg/ml Inj (IV USE ONLY) IVP PRN (15:30)
[2019-11-27] MEDS ORDERED: Morphine Sulfate 2mg/ml Inj(IV/IM USE ONLY) IVP PRN (15:30)
[2019-11-27 16:00] VITALS: BP 125/82
[2019-11-27 20:00] VITALS: BP 131/85
--- NOTE | 2019-11-27 21:35 | Infectious Diseases Prog Note ---
Assessment/Plan Assessment/Plan A) 1) gram neg pna, bilateral infiltrates, fevers, chf/edema, ? pneumocystis pna, elevated ldh, covid-19 testing negative, ? cryptococcus infection/pna 2) recent hospitalization for e.coli enteritis and sepsis 3) hiv - viral load - CD4-322, viral load - 75, 930 4) hx ARF and HD, cr worse today, on lasix 5) allergies - nkda, sh-neg, fh-nc, mar noted 6) d/w RN 7) d/w patient and says no pcn allergy - has taken pcn in the past P) 1) empiric zosyn for gram negative pna, f/u on ID and sensitivities - observe on abx tx 2) hold off on bronchoscopy because potential risks with pt hx of pulmonary hypertension and now with + sputum culture for gram negative organism 3) OI less likely with CD4 - 322 (> 200) 4) d/w Dr. Zavala and will hold off on bronchoscopy for now and observe on abx 5) covid-19 testing negative x 2 6) f/u on chest x-ray and gallium scan 7) f/u on serology 8) biktarvy for HIV tx - patient to f/u with primary HIV MD Subjective Constitutional: Reports: fever, fatigue HEENT: Reports: congestion - less Respiratory: Reports: shortness of breath - less Cardiovascular: Denies: chest pain Gastrointestinal/Abdominal: Denies: nausea, vomiting, diarrhea Neurologic: Denies: headache Psychiatric: Denies: depression Skin: Denies: rash Hematologic: Denies: bleeding Musculoskeletal: Denies: pain Allergies: Coded Allergies: No Known Allergies (Unverified , 11/20/19) Objective Vital Signs Last 24 Hour Vital Signs Date Time Temp Pulse Resp B/P (MAP) Pulse Ox O2 Delivery O2 Flow Rate FiO2 11/27/19 16:00 99.3 94 20 125/82 (96) 98 11/27/19 12:00 97.9 97 20 138/92 (107) 98 11/27/19 09:24 88 136/93 11/27/19 09:00 Room Air 11/27/19 08:00 99.1 88 20 136/93 (107) 98 11/27/19 04:00 99.9 93 20 133/90 (104) 97 11/27/19 00:00 98.6 77 16 127/86 (100) 96 Height (Feet): 6 Height (Inches): 1.00 Weight (Pounds): 198 General Appearance: no acute distress HEENT: normocephalic, atraumatic, anicteric, mucous membranes moist Respiratory/Chest: crackles/rales, rhonchi - bilaterally Cardiovascular: normal rate, regular rhythm, no gallop/murmur Abdomen: normal bowel sounds, soft, non tender, no organomegaly, non distended Genitourinary: other - no kelly Extremities: no cyanosis Skin: no rash Neurologic/Psychiatric: line pilot II-XII grossly normal, alert, oriented x 3, responsive Lymphatic: no neck adenopathy Musculoskeletal: no effusion Objective Chest x-ray - 11/23/19 Procedure: XRAY Chest 1v Indication: Shortness of breath Technique: One view of the chest Comparison: 11/20/2019 Findings: Stable bilateral diffuse infiltrates with an upper lung predominance. Heart size is upper limits of normal. There is suggestion of trace pleural fluid bilaterally. Findings are unchanged Impression: Unchanged, over 3 days, findings as above. CT Chest: Impression: Bilateral moderate pleural effusions Edema of the subcutaneous fat, mild Bilateral infiltrates, with an upper lobe predominance. Most likely infectious in nature. Note, however, that given the presence of bilateral pleural fluid and edema of the subcutaneous fat, this could conceivably also represent pulmonary edema Laboratory Tests Test 11/27/19 06:45 White Blood Count 4.9 K/UL (4.8-10.8) Red Blood Count 2.62 M/UL (4.70-6.10) L Hemoglobin 7.7 G/DL (14.2-18.0) L Hematocrit 25.1 % (42.0-52.0) L Mean Corpuscular Volume 96 FL (80-99) Mean Corpuscular Hemoglobin 29.4 PG (27.0-31.0) Mean Corpuscular Hemoglobin Concent 30.7 G/DL (32.0-36.0) L Red Cell Distribution Width 15.9 % (11.6-14.8) H Platelet Count 180 K/UL (150-450) Mean Platelet Volume 5.6 FL (6.5-10.1) L Neutrophils (%) (Auto) % (45.0-75.0) Lymphocytes (%) (Auto) % (20.0-45.0) Monocytes (%) (Auto) % (1.0-10.0) Eosinophils (%) (Auto) % (0.0-3.0) Basophils (%) (Auto) % (0.0-2.0) Differential Total Cells Counted 100 Neutrophils % (Manual) 48 % (45-75) Lymphocytes % (Manual) 39 % (20-45) Monocytes % (Manual) 7 % (1-10) Eosinophils % (Manual) 6 % (0-3) H Basophils % (Manual) 0 % (0-2) Band Neutrophils 0 % (0-8) Platelet Estimate Adequate Platelet Morphology Normal Hypochromasia 1+ Anisocytosis 1+ Sodium Level 137 MMOL/L (136-145) Potassium Level 4.2 MMOL/L (3.5-5.1) Chloride Level 105 MMOL/L (98-107) Carbon Dioxide Level 25 MMOL/L (21-32) Anion Gap 7 mmol/L (5-15) Blood Urea Nitrogen 23 mg/dL (7-18) H Creatinine 1.7 MG/DL (0.55-1.30) H Estimat Glomerular Filtration Rate 45.8 mL/min (>60) Glucose Level 87 MG/DL (74-106) Calcium Level 8.3 MG/DL (8.5-10.1) L Phosphorus Level 4.2 MG/DL (2.5-4.9) Magnesium Level 2.1 MG/DL (1.8-2.4) Total Bilirubin 0.9 MG/DL (0.2-1.0) Aspartate Amino Transf (AST/SGOT) 60 U/L (15-37) H Alanine Aminotransferase (ALT/SGPT) 32 U/L (12-78) Alkaline Phosphatase 77 U/L (46-116) Lactate Dehydrogenase 352 U/L (81-234) H Total Protein 9.6 G/DL (6.4-8.2) H Albumin 2.5 G/DL (3.4-5.0) L Globulin 7.1 g/dL Albumin/Globulin Ratio 0.4 (1.0-2.7) L Current Medications Medications (Trade) Dose Ordered Sig/Tiara Route PRN Reason Start Time Stop Time Status Last Admin Dose Admin Acetaminophen (Tylenol) 650 mg Q4H PRN ORAL Temp >100.5 11/21/19 12:00 12/21/19 11:59 11/26/19 20:08 Amlodipine Besylate (Norvasc) 5 mg DAILY ORAL 11/22/19 12:00 12/22/19 11:59 11/27/19 09:24 Ferrous Sulfate (Feosol) 325 mg THREE TIMES A DAY ORAL 11/21/19 13:00 02/19/20 12:59 11/27/19 17:32 Furosemide (Lasix) 40 mg DAILY ORAL 11/28/19 09:00 12/28/19 08:59 Morphine Sulfate (Morphine Sulfate) 2 mg Q4H PRN IVP Moderate Pain (Pain Scale 4-6) 11/27/19 15:30 12/04/19 15:29 Morphine Sulfate (Morphine Sulfate) 4 mg Q4H PRN IVP Severe Pain (Pain Scale 7-10) 11/27/19 15:30 12/04/19 15:29 Ondansetron HCl (Zofran) 4 mg Q8HR PRN IVP Nausea & Vomiting 11/24/19 23:15 12/24/19 23:14 11/24/19 23:20 Pantoprazole (Protonix) 40 mg DAILY IVP 11/26/19 13:15 12/26/19 13:14 11/27/19 09:23 Patient Own Medication (Patient's Own Med) 1 ea DAILY ORAL 11/24/19 13:00 12/24/19 12:59 11/27/19 09:23 Piperacillin Sod/ Tazobactam Sod 3.375 gm/Dextrose 100 ml @ 25 mls/hr EVERY 8 HOURS IVPB 11/27/19 22:00 12/02/19 21:59 Sevelamer Carbonate (Renvela) 800 mg TID ORAL 11/25/19 13:00 02/23/20 12:59 11/27/19 17:32 Leeroy Orellana MD Nov 27, 2019 21:35
[2019-11-28] VITALS (7 sets, daily range): BP systolic 130–152; BP diastolic 90–100
[2019-11-28 06:43] LABS: HEMATOCRIT 24.2 % (42.0-52.0); HEMOGLOBIN 7.4 G/DL (14.2-18.0); MEAN CORPUSCULAR VOLUME 95 FL (80-99); PLATELET COUNT 167 K/UL (150-450); RED BLOOD COUNT 2.53 M/UL (4.70-6.10); RED CELL DISTRIBUTION WIDTH 16.8 % (11.6-14.8); WHITE BLOOD COUNT 5.8 K/UL (4.8-10.8)
[2019-11-28 07:49] LABS: ALANINE AMINOTRANSFERASE 26 U/L (12-78); ALBUMIN 2.5 G/DL (3.4-5.0); ALBUMIN/GLOBULIN RATIO 0.4 (1.0-2.7); ALKALINE PHOSPHATASE 70 U/L (46-116); ANION GAP 8 mmol/L (5-15); ASPARTATE AMINO TRANSFERASE 40 U/L (15-37); BILIRUBIN,TOTAL 0.8 MG/DL (0.2-1.0); BLOOD UREA NITROGEN 21 mg/dL (7-18); CALCIUM 7.7 MG/DL (8.5-10.1); CARBON DIOXIDE 24 MMOL/L (21-32); CHLORIDE 106 MMOL/L (98-107); CREATININE 1.5 MG/DL (0.55-1.30); PHOSPHORUS 3.4 MG/DL (2.5-4.9); POTASSIUM 3.9 MMOL/L (3.5-5.1); SODIUM 138 MMOL/L (136-145)
[2019-11-28] MEDS: Pantoprazole Inj IVP SCH (08:50)
[2019-11-28] MEDS: Patient's Own Med - BIKTARVY 50-200-25MG TAB ORAL SCH (08:51)
[2019-11-28] MEDS ORDERED: Furosemide 40mg tab ORAL SCH (09:00)
--- NOTE | 2019-11-28 10:49 | Pulmonology Progress Note ---
Subjective ROS Limited/Unobtainable: No Interval Events: COVID 19 negative; has gram negative in sputum Constitutional: Reports: no symptoms HEENT: Repors: no symptoms Respiratory: Reports: no symptoms, shortness of breath Cardiovascular: Reports: no symptoms Gastrointestinal/Abdominal: Reports: no symptoms; Denies: nausea, vomiting, diarrhea Psychiatric: Denies: depression Skin: Denies: rash Musculoskeletal: Denies: pain Allergies: Coded Allergies: No Known Allergies (Unverified , 11/20/19) Objective Last 24 Hour Vital Signs Date Time Temp Pulse Resp B/P (MAP) Pulse Ox O2 Delivery O2 Flow Rate FiO2 11/28/19 09:00 Room Air 11/28/19 08:51 100 148/100 11/28/19 08:00 98.1 100 20 148/100 (116) 96 11/28/19 04:00 99.0 87 20 135/94 (108) 98 11/28/19 00:00 97.9 88 20 130/94 (106) 97 11/27/19 21:00 Room Air 11/27/19 20:00 99.4 84 20 131/85 (100) 98 11/27/19 16:00 99.3 94 20 125/82 (96) 98 11/27/19 12:00 97.9 97 20 138/92 (107) 98 Intake and Output 11/27/19 11/28/19 19:00 07:00 Intake Total 800 ml 600 ml Output Total 1100 ml 600 ml Balance -300 ml 0 ml Intake Oral 800 ml 500 ml IV Total 100 ml Output Urine Total 1100 ml 600 ml # Voids 3 General Appearance: no acute distress HEENT: normocephalic Respiratory: chest wall non-tender, lungs clear Cardiovascular: normal peripheral pulses, normal rate Abdomen: normal bowel sounds Laboratory Tests 11/28/19 05:58: White Blood Count 5.8, Red Blood Count 2.53L, Hemoglobin 7.4L, Hematocrit 24.2L , Mean Corpuscular Volume 95, Mean Corpuscular Hemoglobin 29.2, Mean Corpuscular Hemoglobin Concent 30.7L, Red Cell Distribution Width 16.8H, Platelet Count 167, Mean Platelet Volume 5.0L, Neutrophils (%) (Auto) , Lymphocytes (%) (Auto) , Monocytes (%) (Auto) , Eosinophils (%) (Auto) , Basophils (%) (Auto) , Neutrophils % (Manual) [Pending], Lymphocytes % (Manual) [Pending], Platelet Estimate [Pending], Platelet Morphology [Pending], Sodium Level 138, Potassium Level 3.9, Chloride Level 106, Carbon Dioxide Level 24, Anion Gap 8, Blood Urea Nitrogen 21H, Creatinine 1.5H, Estimat Glomerular Filtration Rate 53.0, Glucose Level 88, Calcium Level 7.7L, Phosphorus Level 3.4 , Magnesium Level 1.9, Total Bilirubin 0.8, Aspartate Amino Transf (AST/SGOT) 40H, Alanine Aminotransferase (ALT/SGPT) 26, Alkaline Phosphatase 70, Total Protein 9.2H, Albumin 2.5L, Globulin 6.7, Albumin/Globulin Ratio 0.4L Current Medications Medications (Trade) Dose Ordered Sig/Tiara Route PRN Reason Start Time Stop Time Status Last Admin Dose Admin Acetaminophen (Tylenol) 650 mg Q4H PRN ORAL Temp >100.5 11/21/19 12:00 12/21/19 11:59 11/26/19 20:08 Amlodipine Besylate (Norvasc) 5 mg DAILY ORAL 11/22/19 12:00 12/22/19 11:59 11/28/19 08:51 Ferrous Sulfate (Feosol) 325 mg THREE TIMES A DAY ORAL 11/21/19 13:00 02/19/20 12:59 11/28/19 08:51 Furosemide (Lasix) 40 mg DAILY ORAL 11/28/19 09:00 12/28/19 08:59 11/28/19 08:51 Morphine Sulfate (Morphine Sulfate) 2 mg Q4H PRN IVP Moderate Pain (Pain Scale 4-6) 11/27/19 15:30 12/04/19 15:29 Morphine Sulfate (Morphine Sulfate) 4 mg Q4H PRN IVP Severe Pain (Pain Scale 7-10) 11/27/19 15:30 12/04/19 15:29 Ondansetron HCl (Zofran) 4 mg Q8HR PRN IVP Nausea & Vomiting 11/24/19 23:15 12/24/19 23:14 11/24/19 23:20 Pantoprazole (Protonix) 40 mg DAILY IVP 11/26/19 13:15 12/26/19 13:14 11/28/19 08:50 Patient Own Medication (Patient's Own Med) 1 ea DAILY ORAL 11/24/19 13:00 12/24/19 12:59 11/28/19 08:51 Piperacillin Sod/ Tazobactam Sod 3.375 gm/Dextrose 100 ml @ 25 mls/hr EVERY 8 HOURS IVPB 11/27/19 22:00 12/02/19 21:59 11/28/19 05:46 Sevelamer Carbonate (Renvela) 800 mg TID ORAL 11/25/19 13:00 02/23/20 12:59 11/28/19 08:51 Assessment/Plan Assessment/Plan IMPRESSION: 1. Bilateral infiltrates, reviewed chest CT 2. Ruled out for COVID-19. 3. Anemia 4. Renal dysfunction. 5. HIV DISCUSSION: I will follow carefully. Discussed with Cardiology and Nephrology. Will need workup for pulm HTN once euvolemic; PaO2 pressures decreased after diuresis Consider bronchoscopy; will discuss with ID; cannot biopsy due to severe pulm HTN Will hold off given clinical improvement and risks of bronch Reviewed chest CT Discussed with ID PCP unlikely given high CD4 Saturating well on RA Yas Yoder Omar Syed MD Nov 28, 2019 10:49
--- NOTE | 2019-11-28 11:26 | Diagnostic Imaging Report ---
Procedure: XRAY Chest 1v Reason for study: Shortness of breath Comparison films: 11/23/2019. FINDINGS: A single one view chest is obtained. Vascularity is normal. There is much improved bilateral upper lobe infiltrates with mild residual. Cardiac and mediastinal silhouette are within normal limits. CP angles are sharp. The bony thorax appear unremarkable. IMPRESSION: Improving upper lobe infiltrates.
--- NOTE | 2019-11-28 11:48 | Internal Med Progress Note ---
Subjective Date of Service: Nov 28, 2019 Physician Name Sol Mendoza Attending Physician Sandy Dominguez M.D. Current Medications Medications (Trade) Dose Ordered Sig/Tiara Route PRN Reason Start Time Stop Time Status Last Admin Dose Admin Acetaminophen (Tylenol) 650 mg Q4H PRN ORAL Temp >100.5 11/21/19 12:00 12/21/19 11:59 11/26/19 20:08 Amlodipine Besylate (Norvasc) 5 mg DAILY ORAL 11/22/19 12:00 12/22/19 11:59 11/28/19 08:51 Ferrous Sulfate (Feosol) 325 mg THREE TIMES A DAY ORAL 11/21/19 13:00 02/19/20 12:59 11/28/19 08:51 Furosemide (Lasix) 40 mg DAILY ORAL 11/28/19 09:00 12/28/19 08:59 11/28/19 08:51 Morphine Sulfate (Morphine Sulfate) 2 mg Q4H PRN IVP Moderate Pain (Pain Scale 4-6) 11/27/19 15:30 12/04/19 15:29 Morphine Sulfate (Morphine Sulfate) 4 mg Q4H PRN IVP Severe Pain (Pain Scale 7-10) 11/27/19 15:30 12/04/19 15:29 Ondansetron HCl (Zofran) 4 mg Q8HR PRN IVP Nausea & Vomiting 11/24/19 23:15 12/24/19 23:14 11/24/19 23:20 Pantoprazole (Protonix) 40 mg DAILY IVP 11/26/19 13:15 12/26/19 13:14 11/28/19 08:50 Patient Own Medication (Patient's Own Med) 1 ea DAILY ORAL 11/24/19 13:00 12/24/19 12:59 11/28/19 08:51 Piperacillin Sod/ Tazobactam Sod 3.375 gm/Dextrose 100 ml @ 25 mls/hr EVERY 8 HOURS IVPB 11/27/19 22:00 12/02/19 21:59 11/28/19 05:46 Sevelamer Carbonate (Renvela) 800 mg TID ORAL 11/25/19 13:00 02/23/20 12:59 11/28/19 08:51 Allergies: Coded Allergies: No Known Allergies (Unverified , 11/20/19) Subjective Patient is doing much better, he is breathing well on room air. He has been placed on Zosyn IV based on sputum cultures. Had long discussion with him regarding plan of care. It seems as though a bronchoscopy is not indicated at this time per infectious disease. We will follow-up with medical team regarding need for blood transfusion and if he does need a repeat echocardiogram. 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 normal Laboratory Tests Test 11/28/19 05:58 White Blood Count 5.8 K/UL (4.8-10.8) Red Blood Count 2.53 M/UL (4.70-6.10) L Hemoglobin 7.4 G/DL (14.2-18.0) L Hematocrit 24.2 % (42.0-52.0) L Mean Corpuscular Volume 95 FL (80-99) Mean Corpuscular Hemoglobin 29.2 PG (27.0-31.0) Mean Corpuscular Hemoglobin Concent 30.7 G/DL (32.0-36.0) L Red Cell Distribution Width 16.8 % (11.6-14.8) H Platelet Count 167 K/UL (150-450) Mean Platelet Volume 5.0 FL (6.5-10.1) L Neutrophils (%) (Auto) % (45.0-75.0) Lymphocytes (%) (Auto) % (20.0-45.0) Monocytes (%) (Auto) % (1.0-10.0) Eosinophils (%) (Auto) % (0.0-3.0) Basophils (%) (Auto) % (0.0-2.0) Differential Total Cells Counted 100 Neutrophils % (Manual) 57 % (45-75) Lymphocytes % (Manual) 34 % (20-45) Monocytes % (Manual) 6 % (1-10) Eosinophils % (Manual) 2 % (0-3) Basophils % (Manual) 1 % (0-2) Band Neutrophils 0 % (0-8) Platelet Estimate Adequate Platelet Morphology Normal Hypochromasia 3+ Anisocytosis 1+ Sodium Level 138 MMOL/L (136-145) Potassium Level 3.9 MMOL/L (3.5-5.1) Chloride Level 106 MMOL/L (98-107) Carbon Dioxide Level 24 MMOL/L (21-32) Anion Gap 8 mmol/L (5-15) Blood Urea Nitrogen 21 mg/dL (7-18) H Creatinine 1.5 MG/DL (0.55-1.30) H Estimat Glomerular Filtration Rate 53.0 mL/min (>60) Glucose Level 88 MG/DL (74-106) Calcium Level 7.7 MG/DL (8.5-10.1) L Phosphorus Level 3.4 MG/DL (2.5-4.9) Magnesium Level 1.9 MG/DL (1.8-2.4) Total Bilirubin 0.8 MG/DL (0.2-1.0) Aspartate Amino Transf (AST/SGOT) 40 U/L (15-37) H Alanine Aminotransferase (ALT/SGPT) 26 U/L (12-78) Alkaline Phosphatase 70 U/L (46-116) Total Protein 9.2 G/DL (6.4-8.2) H Albumin 2.5 G/DL (3.4-5.0) L Globulin 6.7 g/dL Albumin/Globulin Ratio 0.4 (1.0-2.7) L Intake and Output 11/27/19 11/28/19 19:00 07:00 Intake Total 800 ml 600 ml Output Total 1100 ml 600 ml Balance -300 ml 0 ml Intake Oral 800 ml 500 ml IV Total 100 ml Output Urine Total 1100 ml 600 ml # Voids 3 Assessment/Plan Assessment/Plan Assessment #CAP; in immunocompromised patient--> DDx CAP ,, status post primaquine and fluconazole for concern related to immunocompromise #BL moderate pleural effusion as viewed on CT chest--> no immediate indication for Thora , no indication for Bronch at this time #Diastolic Heart Dysfunction w/ severe PAH #Blood Transfusion Requiring Anemia w/ recent hx of severe Enteritis #HIV/AIDS--> CD4 322 #VERNA on CKD , hx of HD, currently creatinine improving #[facility]. Continue Zosyn IV Continue Lasix PO, s/p Lasix IV, f/u wtih cardio if needs repeat Echo Monitor HGB, transfuse for less than 7 or if hemodynamically unstable, pending SOBT Bactrim is being held 2/2 renal function Bitkarvy for HIV DVT ppx, GI ppx Diet 11/25: Continue AB per ID. F/U with pulm if patient should have thoracentesis. Regarding HGB, will obtain SOBT and ensure GI ppx. 11/26: Lasix has now been changed to 40 po qday; f/u with pulm regarding bronch . HGB stable, still pending SOBT 11/27: No indication for Bronch; continue IV AB and Lasix. Consider blood transfusion, will f/u. Sol Mendoza D.O. Nov 28, 2019 11:48
--- NOTE | 2019-11-28 13:24 | Nephrology Progress Note ---
Assessment/Plan Plan #recent ATN due to HUs? HD depenedent resolved - cr stablized #SOB r/o covid #recent ecoli enteritis #HIV #anemia - switch to lasix 40 PO daily - consideration of bronch - replete mag and K - monitor cr closely - echo with elevated PA pessures - r/o covid - monitor bmp, mag and phos - avoid nephrotoxins - pulm eval - ID eval - on cefepime and levaquin - 2d echo reviewed - transfuse prbc prn - monitor hemoglobin Subjective ROS Limited/Unobtainable: No Constitutional: Denies: no symptoms, chills, diaphoresis, fever, malaise, weakness, other HEENT: Denies: no symptoms, eye pain, blurred vision, tearing, double vision, ear pain, ear discharge, nose pain, nose congestion, throat pain, throat swelling, mouth pain, mouth swelling, other Genitourinary: Denies: no symptoms, burning, discharge, frequency, flank pain, hematuria, incontinence, pain, urgency, other Neurologic/Psychiatric: Denies: no symptoms, anxiety, depressed, emotional problems, headache, numbness, paresthesia, pre-existing deficit, seizure, tingling, tremors, weakness, other Subjective Cr uptrending echo with elevated PA pressures- improved with diuresis continues to have low grade temps hemoglobin 7.4 reported rectal bleeding FOBT pending Objective Objective Last 24 Hour Vital Signs Date Time Temp Pulse Resp B/P (MAP) Pulse Ox O2 Delivery O2 Flow Rate FiO2 11/28/19 12:00 98.2 97 18 147/99 (115) 100 11/28/19 09:00 Room Air 11/28/19 08:51 100 148/100 11/28/19 08:00 98.1 100 20 148/100 (116) 96 11/28/19 04:00 99.0 87 20 135/94 (108) 98 11/28/19 00:00 97.9 88 20 130/94 (106) 97 11/27/19 21:00 Room Air 11/27/19 20:00 99.4 84 20 131/85 (100) 98 11/27/19 16:00 99.3 94 20 125/82 (96) 98 Intake and Output 11/27/19 11/28/19 19:00 07:00 Intake Total 800 ml 600 ml Output Total 1100 ml 600 ml Balance -300 ml 0 ml Intake Oral 800 ml 500 ml IV Total 100 ml Output Urine Total 1100 ml 600 ml # Voids 3 Laboratory Tests 11/28/19 05:58: White Blood Count 5.8, Red Blood Count 2.53L, Hemoglobin 7.4L, Hematocrit 24.2L , Mean Corpuscular Volume 95, Mean Corpuscular Hemoglobin 29.2, Mean Corpuscular Hemoglobin Concent 30.7L, Red Cell Distribution Width 16.8H, Platelet Count 167, Mean Platelet Volume 5.0L, Neutrophils (%) (Auto) , Lymphocytes (%) (Auto) , Monocytes (%) (Auto) , Eosinophils (%) (Auto) , Basophils (%) (Auto) , Differential Total Cells Counted 100, Neutrophils % ( Manual) 57, Lymphocytes % (Manual) 34, Monocytes % (Manual) 6, Eosinophils % ( Manual) 2, Basophils % (Manual) 1, Band Neutrophils 0, Platelet Estimate Adequate, Platelet Morphology Normal, Hypochromasia 3+, Anisocytosis 1+, Sodium Level 138, Potassium Level 3.9, Chloride Level 106, Carbon Dioxide Level 24, Anion Gap 8, Blood Urea Nitrogen 21H, Creatinine 1.5H, Estimat Glomerular Filtration Rate 53.0, Glucose Level 88, Calcium Level 7.7L, Phosphorus Level 3.4 , Magnesium Level 1.9, Total Bilirubin 0.8, Aspartate Amino Transf (AST/SGOT) 40H, Alanine Aminotransferase (ALT/SGPT) 26, Alkaline Phosphatase 70, Total Protein 9.2H, Albumin 2.5L, Globulin 6.7, Albumin/Globulin Ratio 0.4L Height (Feet): 6 Height (Inches): 1.00 Weight (Pounds): 198 General Appearance: WD/WN, no apparent distress EENT: PERRL/EOMI, normal ENT inspection Neck: non-tender, normal alignment, supple Cardiovascular: normal peripheral pulses, normal rate, regular rhythm Respiratory/Chest: lungs clear, normal breath sounds, no respiratory distress Abdomen: normal bowel sounds, non tender, soft Neurologic: alert, oriented x 3 Sandy Dominguez M.D. Nov 28, 2019 13:24
[2019-11-28] MEDS ORDERED: Morphine Sulfate 4mg/ml Inj (IV USE ONLY) IVP PRN (19:00)
[2019-11-28] MEDS ORDERED: Morphine Sulfate 2mg/ml Inj(IV/IM USE ONLY) IVP PRN (19:00)
[2019-11-29 04:00] VITALS: BP 138/88
[2019-11-29 07:51] LABS: ANION GAP 11 mmol/L (5-15); BLOOD UREA NITROGEN 19 mg/dL (7-18); CALCIUM 7.6 MG/DL (8.5-10.1); CARBON DIOXIDE 22 MMOL/L (21-32); CHLORIDE 106 MMOL/L (98-107); CREATININE 1.3 MG/DL (0.55-1.30); PHOSPHORUS 3.6 MG/DL (2.5-4.9); POTASSIUM 3.6 MMOL/L (3.5-5.1); SODIUM 139 MMOL/L (136-145)
[2019-11-29 08:00] VITALS: BP 132/80
[2019-11-29] MEDS: Patient's Own Med - BIKTARVY 50-200-25MG TAB ORAL SCH (08:24)
[2019-11-29] MEDS: Furosemide 40mg tab ORAL SCH (08:24)
--- NOTE | 2019-11-29 09:29 | Cardiology Progress Note ---
Assessment/Plan Status: doing well, stable Status Narrative Assessment/Plan Problem List: (1) Anemia (2) CHF exacerbation (3) HIV (4) SOB (5) Pulmonary hypertension -s/p PRBC transfusion with improvement in symptoms -currently stable on room air, continue diuresis to lower PA pressures - lasix transitioned to once a day -> transition to oral 40 mg daily maintenance -Echocardiogram with severe PAH and TR - will need further work up as outpatient with possible right heart cath, V/Q scan -Serial CXR with improvement -Repeat TTE with improved PA pressures to 50s -[employer] Dispo planning ok to dc from cardiology standpoint Subjective Cardiovascular: Reports: no symptoms Respiratory: Reports: no symptoms Gastrointestinal/Abdominal: Reports: no symptoms Genitourinary: Reports: no symptoms Subjective No acute events, HgB stable , no bleeding TTE with severe PAH RVSP 77 and moderate TR, normal LV function Repeat TTE with improvement in PA pressures to 50s post diuresis Patient reports feeling better, hes on room air He does not want bronch No acute events otherwise, H/H stable Objective Last 24 Hour Vital Signs Date Time Temp Pulse Resp B/P (MAP) Pulse Ox O2 Delivery O2 Flow Rate FiO2 11/29/19 08:25 92 132/80 11/29/19 08:00 97.6 92 17 132/80 (97) 98 11/29/19 04:00 97.8 89 16 138/88 (105) 98 11/28/19 20:18 Room Air 11/28/19 20:00 98.1 100 18 146/91 (109) 96 11/28/19 18:32 98.6 104 21 152/93 (112) 98 11/28/19 16:00 97.3 100 20 139/90 (106) 100 11/28/19 12:00 98.2 97 18 147/99 (115) 100 General Appearance: no apparent distress, alert EENT: PERRL/EOMI, normal ENT inspection, TMs normal, pharynx normal Neck: non-tender, normal alignment, supple, normal inspection, no JVD Rhythm: NSR Cardiovascular: normal peripheral pulses, normal rate, regular rhythm Respiratory/Chest: chest wall non-tender, lungs clear Abdomen: normal bowel sounds, non tender, soft, no organomegaly, no mass Extremities: normal range of motion, non-tender, normal inspection, no calf tenderness, no swelling 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, no motor/sensory deficits Intake and Output 11/28/19 11/29/19 19:00 07:00 Intake Total 675 ml 950 ml Balance 675 ml 950 ml Intake Oral 600 ml 800 ml IV Total 75 ml 150 ml # Voids 3 4 # Bowel Movements 1 Laboratory Tests Test 11/29/19 05:55 Sodium Level 139 MMOL/L (136-145) Potassium Level 3.6 MMOL/L (3.5-5.1) Chloride Level 106 MMOL/L (98-107) Carbon Dioxide Level 22 MMOL/L (21-32) Anion Gap 11 mmol/L (5-15) Blood Urea Nitrogen 19 mg/dL (7-18) H Creatinine 1.3 MG/DL (0.55-1.30) Estimat Glomerular Filtration Rate > 60 mL/min (>60) Glucose Level 94 MG/DL (74-106) Calcium Level 7.6 MG/DL (8.5-10.1) L Phosphorus Level 3.6 MG/DL (2.5-4.9) Dario Coto MD Nov 29, 2019 09:29
--- NOTE | 2019-11-29 10:08 | Pulmonology Progress Note ---
Subjective ROS Limited/Unobtainable: No Interval Events: COVID 19 negative; has gram negative in sputum Constitutional: Reports: no symptoms HEENT: Repors: no symptoms Respiratory: Reports: no symptoms, shortness of breath Cardiovascular: Reports: no symptoms Gastrointestinal/Abdominal: Reports: no symptoms; Denies: nausea, vomiting, diarrhea Psychiatric: Denies: depression Skin: Denies: rash Musculoskeletal: Denies: pain Allergies: Coded Allergies: No Known Allergies (Unverified , 11/20/19) Objective Last 24 Hour Vital Signs Date Time Temp Pulse Resp B/P (MAP) Pulse Ox O2 Delivery O2 Flow Rate FiO2 11/29/19 08:25 92 132/80 11/29/19 08:00 97.6 92 17 132/80 (97) 98 11/29/19 04:00 97.8 89 16 138/88 (105) 98 11/28/19 20:18 Room Air 11/28/19 20:00 98.1 100 18 146/91 (109) 96 11/28/19 18:32 98.6 104 21 152/93 (112) 98 11/28/19 16:00 97.3 100 20 139/90 (106) 100 11/28/19 12:00 98.2 97 18 147/99 (115) 100 Intake and Output 11/28/19 11/29/19 19:00 07:00 Intake Total 675 ml 950 ml Balance 675 ml 950 ml Intake Oral 600 ml 800 ml IV Total 75 ml 150 ml # Voids 3 4 # Bowel Movements 1 General Appearance: no acute distress HEENT: normocephalic Respiratory: chest wall non-tender, lungs clear Cardiovascular: normal peripheral pulses, normal rate Abdomen: normal bowel sounds Laboratory Tests 11/29/19 05:55: Sodium Level 139, Potassium Level 3.6, Chloride Level 106, Carbon Dioxide Level 22, Anion Gap 11, Blood Urea Nitrogen 19H, Creatinine 1.3, Estimat Glomerular Filtration Rate > 60, Glucose Level 94, Calcium Level 7.6L, Phosphorus Level 3.6 Current Medications Medications (Trade) Dose Ordered Sig/Tiara Route PRN Reason Start Time Stop Time Status Last Admin Dose Admin Acetaminophen (Tylenol) 650 mg Q4H PRN ORAL Temp >100.5 11/28/19 19:00 12/21/19 18:59 Amlodipine Besylate (Norvasc) 5 mg DAILY ORAL 11/29/19 09:00 12/22/19 11:59 11/29/19 08:25 Ferrous Sulfate (Feosol) 325 mg THREE TIMES A DAY ORAL 11/29/19 09:00 02/19/20 12:59 11/29/19 08:25 Furosemide (Lasix) 40 mg DAILY ORAL 11/29/19 09:00 12/28/19 08:59 11/29/19 08:24 Morphine Sulfate (Morphine Sulfate) 2 mg Q4H PRN IVP Moderate Pain (Pain Scale 4-6) 11/28/19 19:00 12/04/19 18:59 Morphine Sulfate (Morphine Sulfate) 4 mg Q4H PRN IVP Severe Pain (Pain Scale 7-10) 11/28/19 19:00 12/04/19 18:59 Ondansetron HCl (Zofran) 4 mg Q8H PRN IVP Nausea & Vomiting 11/28/19 19:00 12/28/19 18:59 Patient Own Medication (Patient's Own Med) 1 ea DAILY ORAL 11/29/19 09:00 12/24/19 12:59 11/29/19 08:24 Piperacillin Sod/ Tazobactam Sod 3.375 gm/Dextrose 100 ml @ 25 mls/hr EVERY 8 HOURS IVPB 11/28/19 22:00 12/03/19 21:59 11/29/19 05:07 Sevelamer Carbonate (Renvela) 800 mg TID ORAL 11/29/19 09:00 02/23/20 12:59 11/29/19 08:24 Assessment/Plan Assessment/Plan IMPRESSION: 1. Bilateral infiltrates, reviewed chest CT 2. Ruled out for COVID-19. 3. Anemia 4. Renal dysfunction. 5. HIV DISCUSSION: I will follow carefully. Discussed with Cardiology and Nephrology. Will need workup for pulm HTN once euvolemic; PaO2 pressures decreased after diuresis Consider bronchoscopy; will discuss with ID; cannot biopsy due to severe pulm HTN Will hold off given clinical improvement and risks of bronch Reviewed chest CT Discussed with ID PCP unlikely given high CD4 Saturating well on RA Yas Yoder Omar Syed MD Nov 29, 2019 10:08
--- NOTE | 2019-11-29 12:04 | Internal Med Progress Note ---
Subjective Date of Service: Nov 29, 2019 Physician Name Sol Mendoza Attending Physician Sandy Dominguez M.D. Current Medications Medications (Trade) Dose Ordered Sig/Tiara Route PRN Reason Start Time Stop Time Status Last Admin Dose Admin Acetaminophen (Tylenol) 650 mg Q4H PRN ORAL Temp >100.5 11/28/19 19:00 12/21/19 18:59 Amlodipine Besylate (Norvasc) 5 mg DAILY ORAL 11/29/19 09:00 12/22/19 11:59 11/29/19 08:25 Ferrous Sulfate (Feosol) 325 mg THREE TIMES A DAY ORAL 11/29/19 09:00 02/19/20 12:59 11/29/19 08:25 Furosemide (Lasix) 40 mg DAILY ORAL 11/29/19 09:00 12/28/19 08:59 11/29/19 08:24 Morphine Sulfate (Morphine Sulfate) 2 mg Q4H PRN IVP Moderate Pain (Pain Scale 4-6) 11/28/19 19:00 12/04/19 18:59 Morphine Sulfate (Morphine Sulfate) 4 mg Q4H PRN IVP Severe Pain (Pain Scale 7-10) 11/28/19 19:00 12/04/19 18:59 Ondansetron HCl (Zofran) 4 mg Q8H PRN IVP Nausea & Vomiting 11/28/19 19:00 12/28/19 18:59 Patient Own Medication (Patient's Own Med) 1 ea DAILY ORAL 11/29/19 09:00 12/24/19 12:59 11/29/19 08:24 Piperacillin Sod/ Tazobactam Sod 3.375 gm/Dextrose 100 ml @ 25 mls/hr EVERY 8 HOURS IVPB 11/28/19 22:00 12/03/19 21:59 11/29/19 05:07 Sevelamer Carbonate (Renvela) 800 mg TID ORAL 11/29/19 09:00 02/23/20 12:59 11/29/19 08:24 Allergies: Coded Allergies: No Known Allergies (Unverified , 11/20/19) Subjective Renal function improving, awaiting todays CBC. Sputum Cx noted, but no sensitivities yet. Will f/u with ID to see if good oral AB option. Per Cardio, no further inpatient workup, but recommend outpatient w/u, possible angiogram. 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, oriented x 3 Skin: warm/dry Laboratory Tests Test 11/29/19 05:55 Sodium Level 139 MMOL/L (136-145) Potassium Level 3.6 MMOL/L (3.5-5.1) Chloride Level 106 MMOL/L (98-107) Carbon Dioxide Level 22 MMOL/L (21-32) Anion Gap 11 mmol/L (5-15) Blood Urea Nitrogen 19 mg/dL (7-18) H Creatinine 1.3 MG/DL (0.55-1.30) Estimat Glomerular Filtration Rate > 60 mL/min (>60) Glucose Level 94 MG/DL (74-106) Calcium Level 7.6 MG/DL (8.5-10.1) L Phosphorus Level 3.6 MG/DL (2.5-4.9) Intake and Output 11/28/19 11/29/19 19:00 07:00 Intake Total 675 ml 950 ml Balance 675 ml 950 ml Intake Oral 600 ml 800 ml IV Total 75 ml 150 ml # Voids 3 4 # Bowel Movements 1 Assessment/Plan Assessment/Plan Assessment #CAP; in immunocompromised patient--> DDx CAP ,, status post primaquine and fluconazole for concern related to immunocompromise #BL moderate pleural effusion as viewed on CT chest--> no immediate indication for Thora , no indication for Bronch at this time #Diastolic Heart Dysfunction w/ severe PAH #Blood Transfusion Requiring Anemia w/ recent hx of severe Enteritis #HIV/AIDS--> CD4 322 #VERNA on CKD , hx of HD, currently creatinine improving #[facility]. Continue Zosyn IV Continue Lasix PO, s/p Lasix IV, Per cardio, recommend further outpatient w/u, possible Angiogram , but not urgent Monitor HGB, transfuse for less than 7 or if hemodynamically unstable Bactrim is being held 2/2 renal function Bitkarvy for HIV DVT ppx, GI ppx Diet 11/25: Continue AB per ID. F/U with pulm if patient should have thoracentesis. 11/26: Lasix has now been changed to 40 po qday; f/u with pulm regarding bronch . HGB stable 11/27: No indication for Bronch; continue IV AB and Lasix. Consider blood transfusion, will f/u. 11/28: Cultures noted, await ID input to see if PO option so patient can be discharged. Sol Mendoza D.O. Nov 29, 2019 12:04
[2019-11-29 12:07] VITALS: BP 141/98
[2019-11-29 12:20] LABS: HEMOGLOBIN 7.7 G/DL (14.2-18.0); MEAN CORPUSCULAR VOLUME 95 FL (80-99); PLATELET COUNT 156 K/UL (150-450); RED BLOOD COUNT 2.63 M/UL (4.70-6.10); RED CELL DISTRIBUTION WIDTH 16.7 % (11.6-14.8); WHITE BLOOD COUNT 6.2 K/UL (4.8-10.8)
--- NOTE | 2019-11-29 13:12 | Nephrology Progress Note ---
Assessment/Plan Plan #recent ATN due to HUs? HD depenedent resolved - cr stablized #SOB r/o covid #recent ecoli enteritis #HIV #anemia - switch to lasix 40 PO daily - consideration of bronch - replete mag and K - monitor cr closely - echo with elevated PA pessures - r/o covid - monitor bmp, mag and phos - avoid nephrotoxins - pulm eval - ID eval - on cefepime and levaquin - 2d echo reviewed - transfuse prbc prn - monitor hemoglobin Subjective ROS Limited/Unobtainable: No Constitutional: Denies: no symptoms, chills, diaphoresis, fever, malaise, weakness, other HEENT: Denies: no symptoms, eye pain, blurred vision, tearing, double vision, ear pain, ear discharge, nose pain, nose congestion, throat pain, throat swelling, mouth pain, mouth swelling, other Genitourinary: Denies: no symptoms, burning, discharge, frequency, flank pain, hematuria, incontinence, pain, urgency, other Neurologic/Psychiatric: Denies: no symptoms, anxiety, depressed, emotional problems, headache, numbness, paresthesia, pre-existing deficit, seizure, tingling, tremors, weakness, other Subjective afebrile echo with elevated PA pressures- improved with diuresis Hemoglobin stable FOBT negative Objective Objective Last 24 Hour Vital Signs Date Time Temp Pulse Resp B/P (MAP) Pulse Ox O2 Delivery O2 Flow Rate FiO2 11/29/19 12:07 98.4 103 20 141/98 (112) 99 11/29/19 09:00 Room Air 11/29/19 08:25 92 132/80 11/29/19 08:00 97.6 92 17 132/80 (97) 98 11/29/19 04:00 97.8 89 16 138/88 (105) 98 11/28/19 20:18 Room Air 11/28/19 20:00 98.1 100 18 146/91 (109) 96 11/28/19 18:32 98.6 104 21 152/93 (112) 98 11/28/19 16:00 97.3 100 20 139/90 (106) 100 Intake and Output 11/28/19 11/29/19 19:00 07:00 Intake Total 675 ml 950 ml Balance 675 ml 950 ml Intake Oral 600 ml 800 ml IV Total 75 ml 150 ml # Voids 3 4 # Bowel Movements 1 Laboratory Tests 11/29/19 05:55: White Blood Count 6.2, Red Blood Count 2.63L, Hemoglobin 7.7L, Hematocrit 25.0L , Mean Corpuscular Volume 95, Mean Corpuscular Hemoglobin 29.1, Mean Corpuscular Hemoglobin Concent 30.6L, Red Cell Distribution Width 16.7H, Platelet Count 156, Mean Platelet Volume 5.1L, Neutrophils (%) (Auto) , Lymphocytes (%) (Auto) , Monocytes (%) (Auto) , Eosinophils (%) (Auto) , Basophils (%) (Auto) , Neutrophils % (Manual) [Pending], Lymphocytes % (Manual) [Pending], Platelet Estimate [Pending], Platelet Morphology [Pending], Sodium Level 139, Potassium Level 3.6, Chloride Level 106, Carbon Dioxide Level 22, Anion Gap 11, Blood Urea Nitrogen 19H, Creatinine 1.3, Estimat Glomerular Filtration Rate > 60, Glucose Level 94, Calcium Level 7.6L, Phosphorus Level 3.6 Height (Feet): 6 Height (Inches): 1.00 Weight (Pounds): 196 Sandy Dominguez M.D. Nov 29, 2019 13:12
--- NOTE | 2019-11-29 14:36 | Diagnostic Imaging Report ---
EXAM: NM Gallium/complete CLINICAL HISTORY: 34-year-old patient with HIV, fever, shortness of breath and Escherichia coli septicemia. COMPARISON: None TECHNIQUE: Study performed with 5.4 mCi gallium-67 given intravenously with subsequent 24-hour and 48-hour delayed planar images. FINDINGS: Obtained images demonstrate appropriate uptake noted in the marrow space and in the liver. On the 24-hour uptake image, there is mild uptake noted in the mid abdomen approximately at the expected location of the transverse colon and left colon. It is slightly lower in intensity than liver. This is significantly decreased on subsequent 48-hour image and was likely physiologic bowel activity. Otherwise there is no other area of abnormal uptake demonstrated. IMPRESSION: NO AREA OF ABNORMAL UPTAKE TO SUGGEST FOCAL INFECTIOUS/INFLAMMATORY PROCESS. SOME ACTIVITY NOTED IN THE REGION OF THE TRANSVERSE AND LEFT COLON ON 24 HOUR IMAGES WITH SUBSEQUENT DECREASE ON 48 HOUR IMAGES LIKELY REPRESENTING PHYSIOLOGIC BOWEL ACTIVITY. IF THE PATIENT HAS ABDOMINAL SYMPTOMS, CONSIDER CORRELATION WITH CT ABDOMEN.
--- NOTE | 2019-11-29 14:57 | Infectious Diseases Prog Note ---
Assessment/Plan Assessment/Plan A) 1) sphingomonas/gram neg pna, bilateral infiltrates, fevers, chf/edema, ? pneumocystis pna, elevated ldh, covid-19 testing negative, ? cryptococcus infection/pna 2) recent hospitalization for e.coli enteritis and sepsis 3) hiv - viral load - CD4-322, viral load - 75, 930 - patient to follow up with primary HIV MD 4) hx ARF and HD, cr worse today, on lasix 5) allergies - nkda, sh-neg, fh-nc, mar noted 6) d/w RN 7) d/w patient and says no pcn allergy - has taken pcn in the past P) 1) zosyn - day # 3 - pending sensitivities - clinically improved, less sob, fevers resolved, chest x-ray improved 2) hold off on bronchoscopy because potential risks with pt hx of pulmonary hypertension and now with + sputum culture for gram negative organism 3) OI less likely with CD4 - 322 (> 200) 4) d/w Dr. Mendoza, d/w Dr. Zavala and will hold off on bronchoscopy for now and observe on abx 5) covid-19 testing negative x 2 6) f/u on chest x-ray and gallium scan 7) f/u on serology 8) biktarvy for HIV tx - patient to f/u with primary HIV MD Subjective Constitutional: Denies: fever HEENT: Reports: congestion Respiratory: Denies: shortness of breath Cardiovascular: Denies: chest pain Gastrointestinal/Abdominal: Reports: diarrhea; Denies: nausea, vomiting Genitourinary: Reports: other - no kelly Neurologic: Denies: headache Psychiatric: Denies: depression Skin: Denies: rash Hematologic: Reports: bleeding Musculoskeletal: Denies: pain Allergies: Coded Allergies: No Known Allergies (Unverified , 11/20/19) Objective Vital Signs Last 24 Hour Vital Signs Date Time Temp Pulse Resp B/P (MAP) Pulse Ox O2 Delivery O2 Flow Rate FiO2 11/29/19 12:07 98.4 103 20 141/98 (112) 99 11/29/19 09:00 Room Air 11/29/19 08:25 92 132/80 11/29/19 08:00 97.6 92 17 132/80 (97) 98 11/29/19 04:00 97.8 89 16 138/88 (105) 98 11/28/19 20:18 Room Air 11/28/19 20:00 98.1 100 18 146/91 (109) 96 11/28/19 18:32 98.6 104 21 152/93 (112) 98 11/28/19 16:00 97.3 100 20 139/90 (106) 100 Height (Feet): 6 Height (Inches): 1.00 Weight (Pounds): 196 General Appearance: no acute distress HEENT: normocephalic, atraumatic, anicteric, mucous membranes moist Respiratory/Chest: crackles/rales, rhonchi - bilaterally Cardiovascular: normal rate, regular rhythm, no gallop/murmur Abdomen: normal bowel sounds, soft, non tender, no organomegaly, non distended Genitourinary: other - no kelly Extremities: no cyanosis Skin: no rash 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 Heart size is upper limits of normal. There is suggestion of trace pleural fluid bilaterally. Findings are unchanged Impression: Unchanged, over 3 days, findings as above. CT Chest: Impression: Bilateral moderate pleural effusions Edema of the subcutaneous fat, mild Bilateral infiltrates, with an upper lobe predominance. Most likely infectious in nature. Note, however, that given the presence of bilateral pleural fluid and edema of the subcutaneous fat, this could conceivably also represent pulmonary edema Chest x-ray - 11/28/19 - Procedure: XRAY Chest 1v Procedure: XRAY Chest 1v Reason for study: Shortness of breath Comparison films: 11/23/2019. FINDINGS: A single one view chest is obtained. Vascularity is normal. There is much improved bilateral upper lobe infiltrates with mild residual. Cardiac and mediastinal silhouette are within normal limits. CP angles are sharp. The bony thorax appear unremarkable. IMPRESSION: Improving upper lobe infiltrates. Gallium scan: IMPRESSION: NO AREA OF ABNORMAL UPTAKE TO SUGGEST FOCAL INFECTIOUS/INFLAMMATORY PROCESS. SOME ACTIVITY NOTED IN THE REGION OF THE TRANSVERSE AND LEFT COLON ON 24 HOUR IMAGES WITH SUBSEQUENT DECREASE ON 48 HOUR IMAGES LIKELY REPRESENTING PHYSIOLOGIC BOWEL ACTIVITY. IF THE PATIENT HAS ABDOMINAL SYMPTOMS, CONSIDER CORRELATION WITH CT ABDOMEN. Microbiology Date/Time Source Procedure Growth Status 11/20/19 23:45 Blood Blood Culture - Final NO GROWTH AFTER 5 DAYS Complete 11/24/19 14:30 Sputum Induced Gram Stain - Final Resulted 11/24/19 14:30 Sputum Culture - Preliminary Sphingomonas Paucimobilis Usual Respiratory Leonora Resulted Laboratory Tests Test 11/29/19 05:55 White Blood Count 6.2 K/UL (4.8-10.8) Red Blood Count 2.63 M/UL (4.70-6.10) L Hemoglobin 7.7 G/DL (14.2-18.0) L Hematocrit 25.0 % (42.0-52.0) L Mean Corpuscular Volume 95 FL (80-99) Mean Corpuscular Hemoglobin 29.1 PG (27.0-31.0) Mean Corpuscular Hemoglobin Concent 30.6 G/DL (32.0-36.0) L Red Cell Distribution Width 16.7 % (11.6-14.8) H Platelet Count 156 K/UL (150-450) Mean Platelet Volume 5.1 FL (6.5-10.1) L Neutrophils (%) (Auto) % (45.0-75.0) Lymphocytes (%) (Auto) % (20.0-45.0) Monocytes (%) (Auto) % (1.0-10.0) Eosinophils (%) (Auto) % (0.0-3.0) Basophils (%) (Auto) % (0.0-2.0) Differential Total Cells Counted 100 Neutrophils % (Manual) 57 % (45-75) Lymphocytes % (Manual) 28 % (20-45) Monocytes % (Manual) 8 % (1-10) Eosinophils % (Manual) 7 % (0-3) H Basophils % (Manual) 0 % (0-2) Band Neutrophils 0 % (0-8) Platelet Estimate Adequate Platelet Morphology Normal Hypochromasia 1+ Anisocytosis 1+ Sodium Level 139 MMOL/L (136-145) Potassium Level 3.6 MMOL/L (3.5-5.1) Chloride Level 106 MMOL/L (98-107) Carbon Dioxide Level 22 MMOL/L (21-32) Anion Gap 11 mmol/L (5-15) Blood Urea Nitrogen 19 mg/dL (7-18) H Creatinine 1.3 MG/DL (0.55-1.30) Estimat Glomerular Filtration Rate > 60 mL/min (>60) Glucose Level 94 MG/DL (74-106) Calcium Level 7.6 MG/DL (8.5-10.1) L Phosphorus Level 3.6 MG/DL (2.5-4.9) Current Medications Medications (Trade) Dose Ordered Sig/Tiara Route PRN Reason Start Time Stop Time Status Last Admin Dose Admin Acetaminophen (Tylenol) 650 mg Q4H PRN ORAL Temp >100.5 11/28/19 19:00 12/21/19 18:59 Amlodipine Besylate (Norvasc) 5 mg DAILY ORAL 11/29/19 09:00 12/22/19 11:59 11/29/19 08:25 Ferrous Sulfate (Feosol) 325 mg THREE TIMES A DAY ORAL 11/29/19 09:00 02/19/20 12:59 11/29/19 12:06 Furosemide (Lasix) 40 mg DAILY ORAL 11/29/19 09:00 12/28/19 08:59 11/29/19 08:24 Morphine Sulfate (Morphine Sulfate) 2 mg Q4H PRN IVP Moderate Pain (Pain Scale 4-6) 11/28/19 19:00 12/04/19 18:59 Morphine Sulfate (Morphine Sulfate) 4 mg Q4H PRN IVP Severe Pain (Pain Scale 7-10) 11/28/19 19:00 12/04/19 18:59 Ondansetron HCl (Zofran) 4 mg Q8H PRN IVP Nausea & Vomiting 11/28/19 19:00 12/28/19 18:59 Patient Own Medication (Patient's Own Med) 1 ea DAILY ORAL 11/29/19 09:00 12/24/19 12:59 11/29/19 08:24 Piperacillin Sod/ Tazobactam Sod 3.375 gm/Dextrose 100 ml @ 25 mls/hr EVERY 8 HOURS IVPB 11/28/19 22:00 12/03/19 21:59 11/29/19 13:55 Sevelamer Carbonate (Renvela) 800 mg TID ORAL 11/29/19 09:00 02/23/20 12:59 11/29/19 12:06 Leeroy Orellana MD Nov 29, 2019 14:57
[2019-11-29 16:00] VITALS: BP 145/93
[2019-11-29 20:00] VITALS: BP 138/91
[2019-11-29] MEDS: Piperacillin/Tazobactam 3.375 GM in D5W 110 ML IVPB SCH (21:47)
[2019-11-30] VITALS: BP 137/93
[2019-11-30 04:00] VITALS: BP 130/78
[2019-11-30] MEDS: Piperacillin/Tazobactam 3.375 GM in D5W 110 ML IVPB SCH (05:35)
[2019-11-30 06:38] LABS: HEMATOCRIT 24.1 % (42.0-52.0); HEMOGLOBIN 7.6 G/DL (14.2-18.0); MEAN CORPUSCULAR VOLUME 95 FL (80-99); PLATELET COUNT 119 K/UL (150-450); RED BLOOD COUNT 2.54 M/UL (4.70-6.10); RED CELL DISTRIBUTION WIDTH 16.6 % (11.6-14.8); WHITE BLOOD COUNT 6.3 K/UL (4.8-10.8)
[2019-11-30 06:47] LABS: ALANINE AMINOTRANSFERASE 23 U/L (12-78); ALBUMIN 2.6 G/DL (3.4-5.0); ALBUMIN/GLOBULIN RATIO 0.4 (1.0-2.7); ALKALINE PHOSPHATASE 67 U/L (46-116); ANION GAP 6 mmol/L (5-15); ASPARTATE AMINO TRANSFERASE 37 U/L (15-37); BILIRUBIN,TOTAL 0.9 MG/DL (0.2-1.0); BLOOD UREA NITROGEN 22 mg/dL (7-18); CARBON DIOXIDE 26 MMOL/L (21-32); CHLORIDE 105 MMOL/L (98-107); CREATININE 1.3 MG/DL (0.55-1.30); PHOSPHORUS 4.3 MG/DL (2.5-4.9); POTASSIUM 3.9 MMOL/L (3.5-5.1); SODIUM 137 MMOL/L (136-145)
[2019-11-30 08:00] VITALS: BP_SYST 128; BP_SYST 146; BP_DIAS 75; BP_DIAS 98
--- NOTE | 2019-11-30 09:27 | Cardiology Progress Note ---
Assessment/Plan Status: stable Status Narrative Assessment/Plan Problem List: (1) Anemia (2) CHF exacerbation (3) HIV (4) SOB (5) Pulmonary hypertension -s/p PRBC transfusion with improvement in symptoms -currently stable on room air, continue diuresis to lower PA pressures - lasix transitioned to once a day -> transition to oral 40 mg daily maintenance -Echocardiogram with severe PAH and TR - will need further work up as outpatient with possible right heart cath, V/Q scan -Serial CXR with improvement -Repeat TTE with improved PA pressures to 50s -M[employer]il[employer] Dispo planning ok to dc from cardiology standpoint Subjective Cardiovascular: Reports: no symptoms Respiratory: Reports: no symptoms Gastrointestinal/Abdominal: Reports: no symptoms Genitourinary: Reports: no symptoms Subjective No acute events, HgB stable , no bleeding TTE with severe PAH RVSP 77 and moderate TR, normal LV function Repeat TTE with improvement in PA pressures to 50s post diuresis Patient reports feeling better, hes on room air He does not want bronch No acute events otherwise, H/H stable Awaiting transition to PO abx to d/c Objective Last 24 Hour Vital Signs Date Time Temp Pulse Resp B/P (MAP) Pulse Ox O2 Delivery O2 Flow Rate FiO2 11/30/19 08:00 97.3 93 18 146/98 (114) 99 11/30/19 04:00 98.2 100 18 130/78 (95) 100 11/30/19 00:00 98.0 97 20 137/93 (108) 97 11/29/19 21:00 Room Air 11/29/19 20:00 98.6 98 20 138/91 (107) 100 11/29/19 16:00 98.6 104 20 145/93 (110) 99 11/29/19 12:07 98.4 103 20 141/98 (112) 99 General Appearance: no apparent distress, alert EENT: PERRL/EOMI, normal ENT inspection, TMs normal Neck: non-tender, normal alignment, supple, normal inspection Rhythm: NSR Cardiovascular: normal peripheral pulses, normal rate, regular rhythm Respiratory/Chest: chest wall non-tender, normal breath sounds Abdomen: normal bowel sounds, non tender Extremities: normal range of motion, non-tender 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, no motor/sensory deficits Intake and Output 11/29/19 11/30/19 19:00 07:00 Intake Total 2525 ml 110.0 ml Output Total 2000 ml Balance 2525 ml -1890.0 ml Intake Oral 2400 ml IV Total 125 ml 110.0 ml Output Urine Total 2000 ml # Voids 8 4 # Bowel Movements 1 Laboratory Tests Test 11/30/19 06:00 White Blood Count 6.3 K/UL (4.8-10.8) Red Blood Count 2.54 M/UL (4.70-6.10) L Hemoglobin 7.6 G/DL (14.2-18.0) L Hematocrit 24.1 % (42.0-52.0) L Mean Corpuscular Volume 95 FL (80-99) Mean Corpuscular Hemoglobin 29.8 PG (27.0-31.0) Mean Corpuscular Hemoglobin Concent 31.4 G/DL (32.0-36.0) L Red Cell Distribution Width 16.6 % (11.6-14.8) H Platelet Count 119 K/UL (150-450) L Mean Platelet Volume 5.9 FL (6.5-10.1) L Neutrophils (%) (Auto) % (45.0-75.0) Lymphocytes (%) (Auto) % (20.0-45.0) Monocytes (%) (Auto) % (1.0-10.0) Eosinophils (%) (Auto) % (0.0-3.0) Basophils (%) (Auto) % (0.0-2.0) Neutrophils % (Manual) Pending Lymphocytes % (Manual) Pending Platelet Estimate Pending Platelet Morphology Pending Sodium Level 137 MMOL/L (136-145) Potassium Level 3.9 MMOL/L (3.5-5.1) Chloride Level 105 MMOL/L (98-107) Carbon Dioxide Level 26 MMOL/L (21-32) Anion Gap 6 mmol/L (5-15) Blood Urea Nitrogen 22 mg/dL (7-18) H Creatinine 1.3 MG/DL (0.55-1.30) Estimat Glomerular Filtration Rate > 60 mL/min (>60) Glucose Level 89 MG/DL (74-106) Calcium Level 8.0 MG/DL (8.5-10.1) L Phosphorus Level 4.3 MG/DL (2.5-4.9) Magnesium Level 1.9 MG/DL (1.8-2.4) Total Bilirubin 0.9 MG/DL (0.2-1.0) Aspartate Amino Transf (AST/SGOT) 37 U/L (15-37) Alanine Aminotransferase (ALT/SGPT) 23 U/L (12-78) Alkaline Phosphatase 67 U/L (46-116) Total Protein 9.9 G/DL (6.4-8.2) H Albumin 2.6 G/DL (3.4-5.0) L Globulin 7.3 g/dL Albumin/Globulin Ratio 0.4 (1.0-2.7) L Dario Coto MD Nov 30, 2019 09:27
[2019-11-30] MEDS: Furosemide 40mg tab ORAL SCH (09:57)
[2019-11-30] MEDS: Patient's Own Med - BIKTARVY 50-200-25MG TAB ORAL SCH (09:58)
--- NOTE | 2019-11-30 10:24 | Pulmonology Progress Note ---
Subjective ROS Limited/Unobtainable: No Interval Events: COVID 19 negative; has gram negative in sputum Constitutional: Denies: fever HEENT: Repors: no symptoms Respiratory: Reports: no symptoms, shortness of breath Cardiovascular: Reports: no symptoms Gastrointestinal/Abdominal: Reports: diarrhea; Denies: nausea, vomiting Psychiatric: Denies: depression Skin: Denies: rash Musculoskeletal: Denies: pain Allergies: Coded Allergies: No Known Allergies (Unverified , 11/20/19) Objective Last 24 Hour Vital Signs Date Time Temp Pulse Resp B/P (MAP) Pulse Ox O2 Delivery O2 Flow Rate FiO2 11/30/19 09:58 93 146/98 11/30/19 09:00 Room Air 11/30/19 08:00 97.3 93 18 146/98 (114) 99 11/30/19 04:00 98.2 100 18 130/78 (95) 100 11/30/19 00:00 98.0 97 20 137/93 (108) 97 11/29/19 21:00 Room Air 11/29/19 20:00 98.6 98 20 138/91 (107) 100 11/29/19 16:00 98.6 104 20 145/93 (110) 99 11/29/19 12:07 98.4 103 20 141/98 (112) 99 Intake and Output 11/29/19 11/30/19 19:00 07:00 Intake Total 2525 ml 110.0 ml Output Total 2000 ml Balance 2525 ml -1890.0 ml Intake Oral 2400 ml IV Total 125 ml 110.0 ml Output Urine Total 2000 ml # Voids 8 4 # Bowel Movements 1 General Appearance: no acute distress HEENT: normocephalic Respiratory: chest wall non-tender, lungs clear Cardiovascular: normal peripheral pulses, normal rate Abdomen: normal bowel sounds Laboratory Tests 11/30/19 06:00: White Blood Count 6.3, Red Blood Count 2.54L, Hemoglobin 7.6L, Hematocrit 24.1L , Mean Corpuscular Volume 95, Mean Corpuscular Hemoglobin 29.8, Mean Corpuscular Hemoglobin Concent 31.4L, Red Cell Distribution Width 16.6H, Platelet Count 119L, Mean Platelet Volume 5.9L, Neutrophils (%) (Auto) , Lymphocytes (%) (Auto) , Monocytes (%) (Auto) , Eosinophils (%) (Auto) , Basophils (%) (Auto) , Differential Total Cells Counted 100, Neutrophils % ( Manual) 49, Lymphocytes % (Manual) 42, Monocytes % (Manual) 5, Eosinophils % ( Manual) 4H, Basophils % (Manual) 0, Band Neutrophils 0, Platelet Estimate DecreasedL, Platelet Morphology Normal, Hypochromasia 1+, Anisocytosis 1+, Sodium Level 137, Potassium Level 3.9, Chloride Level 105, Carbon Dioxide Level 26, Anion Gap 6, Blood Urea Nitrogen 22H, Creatinine 1.3, Estimat Glomerular Filtration Rate > 60, Glucose Level 89, Calcium Level 8.0L, Phosphorus Level 4.3 , Magnesium Level 1.9, Total Bilirubin 0.9, Aspartate Amino Transf (AST/SGOT) 37 , Alanine Aminotransferase (ALT/SGPT) 23, Alkaline Phosphatase 67, Total Protein 9.9H, Albumin 2.6L, Globulin 7.3, Albumin/Globulin Ratio 0.4L Current Medications Medications (Trade) Dose Ordered Sig/Tiara Route PRN Reason Start Time Stop Time Status Last Admin Dose Admin Acetaminophen (Tylenol) 650 mg Q4H PRN ORAL Temp >100.5 11/28/19 19:00 12/21/19 18:59 Amlodipine Besylate (Norvasc) 5 mg DAILY ORAL 11/29/19 09:00 12/22/19 11:59 11/30/19 09:58 Ferrous Sulfate (Feosol) 325 mg THREE TIMES A DAY ORAL 11/29/19 09:00 02/19/20 12:59 11/30/19 09:57 Furosemide (Lasix) 40 mg DAILY ORAL 11/29/19 09:00 12/28/19 08:59 11/30/19 09:57 Morphine Sulfate (Morphine Sulfate) 2 mg Q4H PRN IVP Moderate Pain (Pain Scale 4-6) 11/28/19 19:00 12/04/19 18:59 Morphine Sulfate (Morphine Sulfate) 4 mg Q4H PRN IVP Severe Pain (Pain Scale 7-10) 11/28/19 19:00 12/04/19 18:59 Ondansetron HCl (Zofran) 4 mg Q8H PRN IVP Nausea & Vomiting 11/28/19 19:00 12/28/19 18:59 Patient Own Medication (Patient's Own Med) 1 ea DAILY ORAL 11/29/19 09:00 12/24/19 12:59 11/30/19 09:58 Piperacillin Sod/ Tazobactam Sod 3.375 gm/Dextrose 110 ml @ 27.5 mls/hr EVERY 8 HOURS IVPB 11/29/19 22:00 12/03/19 21:59 11/30/19 05:35 Sevelamer Carbonate (Renvela) 800 mg TID ORAL 11/29/19 09:00 02/23/20 12:59 11/30/19 09:57 Assessment/Plan Assessment/Plan IMPRESSION: 1. Bilateral infiltrates, reviewed chest CT 2. Ruled out for COVID-19. 3. Anemia 4. Renal dysfunction. 5. HIV DISCUSSION: I will follow carefully. Discussed with Cardiology and Nephrology. Will need workup for pulm HTN once euvolemic; PaO2 pressures decreased after diuresis Consider bronchoscopy; will discuss with ID; cannot biopsy due to severe pulm HTN Will hold off given clinical improvement and risks of bronch Reviewed chest CT Discussed with ID PCP unlikely given high CD4 Saturating well on RA No documented fevers Yas Yoder Omar Syed MD Nov 30, 2019 10:24
--- NOTE | 2019-11-30 11:55 | Internal Med Progress Note ---
Subjective Physician Name RejiSol Attending Physician Sandy Dominguez M.D. Current Medications Medications (Trade) Dose Ordered Sig/Tiara Route PRN Reason Start Time Stop Time Status Last Admin Dose Admin Acetaminophen (Tylenol) 650 mg Q4H PRN ORAL Temp >100.5 11/28/19 19:00 12/21/19 18:59 Amlodipine Besylate (Norvasc) 5 mg DAILY ORAL 11/29/19 09:00 12/22/19 11:59 11/30/19 09:58 Ferrous Sulfate (Feosol) 325 mg THREE TIMES A DAY ORAL 11/29/19 09:00 02/19/20 12:59 11/30/19 09:57 Furosemide (Lasix) 40 mg DAILY ORAL 11/29/19 09:00 12/28/19 08:59 11/30/19 09:57 Morphine Sulfate (Morphine Sulfate) 2 mg Q4H PRN IVP Moderate Pain (Pain Scale 4-6) 11/28/19 19:00 12/04/19 18:59 Morphine Sulfate (Morphine Sulfate) 4 mg Q4H PRN IVP Severe Pain (Pain Scale 7-10) 11/28/19 19:00 12/04/19 18:59 Ondansetron HCl (Zofran) 4 mg Q8H PRN IVP Nausea & Vomiting 11/28/19 19:00 12/28/19 18:59 Patient Own Medication (Patient's Own Med) 1 ea DAILY ORAL 11/29/19 09:00 12/24/19 12:59 11/30/19 09:58 Piperacillin Sod/ Tazobactam Sod 3.375 gm/Dextrose 110 ml @ 27.5 mls/hr EVERY 8 HOURS IVPB 11/29/19 22:00 12/03/19 21:59 11/30/19 05:35 Sevelamer Carbonate (Renvela) 800 mg TID ORAL 11/29/19 09:00 02/23/20 12:59 11/30/19 09:57 Allergies: Coded Allergies: No Known Allergies (Unverified , 11/20/19) Subjective Labs reviewed; patient stable. HGB still low but not dropping. Platelets a little low, probably best to d/c Zosyn. Will f/u with ID and Attending if good d /c options. Still do not see sensitivities , PCP negative Objective Last Vital Signs Date Time Temp Pulse Resp B/P (MAP) Pulse Ox O2 Delivery O2 Flow Rate FiO2 11/30/19 09:58 93 146/98 11/30/19 09:00 Room Air 11/30/19 08:00 97.3 18 99 11/25/19 08:56 1.0 Laboratory Tests Test 11/30/19 06:00 White Blood Count 6.3 K/UL (4.8-10.8) Red Blood Count 2.54 M/UL (4.70-6.10) L Hemoglobin 7.6 G/DL (14.2-18.0) L Hematocrit 24.1 % (42.0-52.0) L Mean Corpuscular Volume 95 FL (80-99) Mean Corpuscular Hemoglobin 29.8 PG (27.0-31.0) Mean Corpuscular Hemoglobin Concent 31.4 G/DL (32.0-36.0) L Red Cell Distribution Width 16.6 % (11.6-14.8) H Platelet Count 119 K/UL (150-450) L Mean Platelet Volume 5.9 FL (6.5-10.1) L Neutrophils (%) (Auto) % (45.0-75.0) Lymphocytes (%) (Auto) % (20.0-45.0) Monocytes (%) (Auto) % (1.0-10.0) Eosinophils (%) (Auto) % (0.0-3.0) Basophils (%) (Auto) % (0.0-2.0) Differential Total Cells Counted 100 Neutrophils % (Manual) 49 % (45-75) Lymphocytes % (Manual) 42 % (20-45) Monocytes % (Manual) 5 % (1-10) Eosinophils % (Manual) 4 % (0-3) H Basophils % (Manual) 0 % (0-2) Band Neutrophils 0 % (0-8) Platelet Estimate Decreased L Platelet Morphology Normal Hypochromasia 1+ Anisocytosis 1+ Sodium Level 137 MMOL/L (136-145) Potassium Level 3.9 MMOL/L (3.5-5.1) Chloride Level 105 MMOL/L (98-107) Carbon Dioxide Level 26 MMOL/L (21-32) Anion Gap 6 mmol/L (5-15) Blood Urea Nitrogen 22 mg/dL (7-18) H Creatinine 1.3 MG/DL (0.55-1.30) Estimat Glomerular Filtration Rate > 60 mL/min (>60) Glucose Level 89 MG/DL (74-106) Calcium Level 8.0 MG/DL (8.5-10.1) L Phosphorus Level 4.3 MG/DL (2.5-4.9) Magnesium Level 1.9 MG/DL (1.8-2.4) Total Bilirubin 0.9 MG/DL (0.2-1.0) Aspartate Amino Transf (AST/SGOT) 37 U/L (15-37) Alanine Aminotransferase (ALT/SGPT) 23 U/L (12-78) Alkaline Phosphatase 67 U/L (46-116) Total Protein 9.9 G/DL (6.4-8.2) H Albumin 2.6 G/DL (3.4-5.0) L Globulin 7.3 g/dL Albumin/Globulin Ratio 0.4 (1.0-2.7) L Intake and Output 11/29/19 11/30/19 19:00 07:00 Intake Total 2525 ml 110.0 ml Output Total 2000 ml Balance 2525 ml -1890.0 ml Intake Oral 2400 ml IV Total 125 ml 110.0 ml Output Urine Total 2000 ml # Voids 8 4 # Bowel Movements 1 Assessment/Plan Assessment/Plan Assessment #CAP; in immunocompromised patient--> DDx CAP ,, status post primaquine and fluconazole for concern related to immunocompromise #BL moderate pleural effusion as viewed on CT chest--> no immediate indication for Thora , no indication for Bronch at this time #Diastolic Heart Dysfunction w/ severe PAH #Blood Transfusion Requiring Anemia w/ recent hx of severe Enteritis #HIV/AIDS--> CD4 322 #VERNA on CKD , hx of HD, currently creatinine improving #[facility] [facility]. Continue Zosyn IV Continue Lasix PO, s/p Lasix IV, Per cardio, recommend further outpatient w/u, possible Angiogram , but not urgent Monitor HGB, transfuse for less than 7 or if hemodynamically unstable Bactrim is being held 2/2 renal function Bitkarvy for HIV DVT ppx, GI ppx Diet 11/25: Continue AB per ID. F/U with pulm if patient should have thoracentesis. 11/26: Lasix has now been changed to 40 po qday; f/u with pulm regarding bronch . HGB stable 11/27: No indication for Bronch; continue IV AB and Lasix. Consider blood transfusion, will f/u. 11/28: Cultures noted, await ID input to see if PO option so patient can be discharged. 11/29: Will d/c patient on Levaquin likely; f/u . Sol Mendoza D.O. Nov 30, 2019 11:55
[2019-11-30] MEDS ORDERED: NORVASC5 MG ORAL (11:59)
[2019-11-30] MEDS ORDERED: RENVELA800 MG ORAL (11:59)
[2019-11-30] MEDS ORDERED: FUROSEMIDE40 MG ORAL (11:59)
[2019-11-30] MEDS ORDERED: FEOSOL325 MG ORAL (11:59)
[2019-11-30 12:00] VITALS: BP 137/87
[2019-11-30] MEDS ORDERED: Levofloxacin 500mg tab ORAL SCH (12:00)
--- NOTE | 2019-11-30 12:01 | Discharge Instructions ---
Discharge Instructions Discharge Instructions Follow up with: Please follow up with Dr. Coto in his office, [employer]. Call MD/Return to Hospital if: If you develop fever or fatigue Resume Normal Activity?: Yes Special Instructions Recommend you get repeat labs in one week and see your pcp. Please continue to see ID doc. Please follow up with Cardiology as instructed. Please take medications as instructed. For Congestive Heart Failure Reminder Report to your physician any weight gain of 5 pounds or more in one week. Sol Mendoza D.O. Nov 30, 2019 12:01
--- NOTE | 2019-11-30 13:39 | Nephrology Progress Note ---
Assessment/Plan Plan #recent ATN due to HUs? HD depenedent resolved - cr stablized #SOB r/o covid #recent ecoli enteritis #HIV #anemia - switch to lasix 40 PO daily - consideration of bronch - replete mag and K - monitor cr closely - echo with elevated PA pessures - r/o covid - monitor bmp, mag and phos - avoid nephrotoxins - pulm eval - ID eval - on cefepime and levaquin - 2d echo reviewed - transfuse prbc prn - monitor hemoglobin Subjective ROS Limited/Unobtainable: No Constitutional: Denies: no symptoms, chills, diaphoresis, fever, malaise, weakness, other HEENT: Denies: no symptoms, eye pain, blurred vision, tearing, double vision, ear pain, ear discharge, nose pain, nose congestion, throat pain, throat swelling, mouth pain, mouth swelling, other Genitourinary: Denies: no symptoms, burning, discharge, frequency, flank pain, hematuria, incontinence, pain, urgency, other Neurologic/Psychiatric: Denies: no symptoms, anxiety, depressed, emotional problems, headache, numbness, paresthesia, pre-existing deficit, seizure, tingling, tremors, weakness, other Subjective afebrile echo with elevated PA pressures- improved with diuresis Hemoglobin stable FOBT negative Objective Objective Last 24 Hour Vital Signs Date Time Temp Pulse Resp B/P (MAP) Pulse Ox O2 Delivery O2 Flow Rate FiO2 11/30/19 12:00 99.3 90 17 137/87 (104) 100 11/30/19 09:58 93 146/98 11/30/19 09:00 Room Air 11/30/19 08:00 97.3 93 18 146/98 (114) 99 11/30/19 04:00 98.2 100 18 130/78 (95) 100 11/30/19 00:00 98.0 97 20 137/93 (108) 97 11/29/19 21:00 Room Air 11/29/19 20:00 98.6 98 20 138/91 (107) 100 11/29/19 16:00 98.6 104 20 145/93 (110) 99 Intake and Output 11/29/19 11/30/19 19:00 07:00 Intake Total 2525 ml 110.0 ml Output Total 2000 ml Balance 2525 ml -1890.0 ml Intake Oral 2400 ml IV Total 125 ml 110.0 ml Output Urine Total 2000 ml # Voids 8 4 # Bowel Movements 1 Laboratory Tests 11/30/19 06:00: White Blood Count 6.3, Red Blood Count 2.54L, Hemoglobin 7.6L, Hematocrit 24.1L , Mean Corpuscular Volume 95, Mean Corpuscular Hemoglobin 29.8, Mean Corpuscular Hemoglobin Concent 31.4L, Red Cell Distribution Width 16.6H, Platelet Count 119L, Mean Platelet Volume 5.9L, Neutrophils (%) (Auto) , Lymphocytes (%) (Auto) , Monocytes (%) (Auto) , Eosinophils (%) (Auto) , Basophils (%) (Auto) , Differential Total Cells Counted 100, Neutrophils % ( Manual) 49, Lymphocytes % (Manual) 42, Monocytes % (Manual) 5, Eosinophils % ( Manual) 4H, Basophils % (Manual) 0, Band Neutrophils 0, Platelet Estimate DecreasedL, Platelet Morphology Normal, Hypochromasia 1+, Anisocytosis 1+, Sodium Level 137, Potassium Level 3.9, Chloride Level 105, Carbon Dioxide Level 26, Anion Gap 6, Blood Urea Nitrogen 22H, Creatinine 1.3, Estimat Glomerular Filtration Rate > 60, Glucose Level 89, Calcium Level 8.0L, Phosphorus Level 4.3 , Magnesium Level 1.9, Total Bilirubin 0.9, Aspartate Amino Transf (AST/SGOT) 37 , Alanine Aminotransferase (ALT/SGPT) 23, Alkaline Phosphatase 67, Total Protein 9.9H, Albumin 2.6L, Globulin 7.3, Albumin/Globulin Ratio 0.4L Height (Feet): 6 Height (Inches): 1.00 Weight (Pounds): 196 Sandy Dominguez M.D. Nov 30, 2019 13:39
--- NOTE | 2019-11-30 16:57 | Discharge Summary ---
Discharge Summary Hospital Course Date of Admission Nov 21, 2019 at 02:03 Date of Discharge Nov 30, 2019 at 13:14 Admitting Diagnosis pneumonia, PUI HPI 34 year old male with hx of HIV (latest CD4 unknown but RNA undetectable per pt) , and recent prolonged hospitalization at [facility] with E. coli enteritis , presenting with ~2 days of fever, SOB. During prior hospital stay, he lost a lot of blood and was discharged after ~3 weeks, on iron, with latest Hgb at 7 range. Denies any more bleeding since then. He was on temporary HD for 6-7 sessions at the time, but got better in the end. In terms of any COVID exposure , he was at [facility] a few days ago, but has been otherwise staying home. Due to SOB, cough, fever, his parents called 911 and he was taken here. Currently, his symptoms are much improved after some lasix and 2 units of blood. Hospital Course Assessment #CAP; in immunocompromised patient--> DDx CAP ,, status post primaquine and fluconazole for concern related to immunocompromise #BL moderate pleural effusion as viewed on CT chest--> no immediate indication for Thora , no indication for Bronch at this time #Diastolic Heart Dysfunction w/ severe PAH #Blood Transfusion Requiring Anemia w/ recent hx of severe Enteritis #HIV/AIDS--> CD4 322 #VERNA on CKD , hx of HD, currently creatinine improving #[facility]. Continue Zosyn IV Continue Lasix PO, s/p Lasix IV, Per cardio, recommend further outpatient w/u, possible Angiogram , but not urgent Monitor HGB, transfuse for less than 7 or if hemodynamically unstable Bactrim is being held 2/2 renal function Krissvy for HIV DVT ppx, GI ppx Diet 11/25: Continue AB per ID. F/U with pulm if patient should have thoracentesis. 11/26: Lasix has now been changed to 40 po qday; f/u with pulm regarding bronch . HGB stable 11/27: No indication for Bronch; continue IV AB and Lasix. Consider blood transfusion, will f/u. 11/28: Cultures noted, await ID input to see if PO option so patient can be discharged. 11/29: Will d/c patient on Levaquin likely; f/u . Patient was actively diuresed and breathing improved. He was discharged with Levaquin after AB course stated above. Extensive education given regarding medication and follow up. He will see Cardio for further outpatient work up. He understands to get repeat labs within one week. Discharge Discharge Vital Signs Last Vital Signs Date Time Temp Pulse Resp B/P (MAP) Pulse Ox O2 Delivery O2 Flow Rate FiO2 11/30/19 12:00 99.3 90 17 137/87 (104) 100 11/30/19 09:00 Room Air 11/25/19 08:56 1.0 Discharge Disposition Patient was discharged to Discharge Instructions Discharge Instructions Follow up with: Please follow up with Dr. Coto in his office, [facility]. Call MD/Return to Hospital if: If you develop fever or fatigue Sol Mendoza D.O. Nov 30, 2019 16:57
== END 2019-11-30 13:14 | disposition home or self-care (01) | DRG 890 ==
LOC: EDBD 23:34 → EMR 23:43 → 2E 11-21 02:03 → EDBEDREQ 11-21 06:51 → 4E 11-28 18:40
DX: J15.6 Pneumonia due to other Gram-negative bacteria (principal); B20 Human immunodeficiency virus [HIV] disease; J96.01 Acute respiratory failure with hypoxia; N17.9 Acute kidney failure, unspecified; J06.9 Acute upper respiratory infection, unspecified; N18.9 Chronic kidney disease, unspecified; R21 Rash and other nonspecific skin eruption; R04.0 Epistaxis; I10 Essential (primary) hypertension; I27.20 Pulmonary hypertension, unspecified; D64.9 Anemia, unspecified; I50.9 Heart failure, unspecified
CPT/HCPCS: 36415; 71045; 71250; 78802; 80048; 80053; 80076; 81003; 82164; 82248; 82270; 82550; 82553; 82728; 82962; 83605; 83615; 83735; 83880; 84100; 84484; 85007; 85025; 85379; 86140; 86360; 86635; 86710; 86738; 86850; 86900; 86901; 86920; 87040; 87070; 87184; 87205; 87449; 87536; 93005; 93306; 96365; 96368; 96372; 99285; J2405; J8499; S0077